=== PATIENT | male | born 1950 | race Caucasian/White ===

== ENCOUNTER 2020-03-03 22:42 | Emergency (ER) | payer MEDICARE, BC ==
[~2020-03-03] VITALS: Ht 175.3 cm; Wt 149.7 kg
[~2020-03-03 22:42] MED LIST: ALPR0.5T72 PO; ASP81TEC PO; BUPR-45 PO; CLOP75TA PO; DIGO250T PO; EZET10TA5 PO; FENO145T2 PO; LISI1TAB10 PO; METO-333 PO; NF-ESOM40C PO; PHEN200T27 PO; RNT150T PO
[2020-03-03 22:56] VITALS: BP 151/85
--- NOTE | 2020-03-03 23:17 | ED Upper Extremity ---
General Chief Complaint: Upper Extremity Stated Complaint: FELL,HIT HEAD,HEAD LAC Nursing Triage Note: PT AMBULATE TO ROOM FS01 WITH C/O RIGHT SHOULDER PAIN AND INJURY TO HEAD AFTER FALLING DOWN APPROX 6 STEPS. PT DENIES BACK OR NECK PAIN. PT REPORTS HE WAS CARRYING A POT OF CHILI DOWN THE STAIRS AND TRIPPED AND FELL. PT DENIES LOC. PT HAS DRIED BLOOD TO THE TOP OF HEAD. Nursing Sepsis Screen: No Definite Risk History of Present Illness Date Seen by Provider: Mar 03, 2020 Time Seen by Provider: 23:13 Initial Comments 70-year-old male presents with injury to the right shoulder and head following a fall. Patient reports he was carrying some chili down the stairs when he believes his right leg gave out on him and he fell. Patient has a large hematoma and abrasion on his scalp. He complains of significant pain to his right shoulder with pain with extension of the right arm or abduction of the right arm. The pain is located in the top of the right shoulder, there is no obvious deformity. Agent reports she is on aspirin but otherwise no other blood thinners as far as his head injury goes. He denies any loss of consciousness. Allergies and Home Medications Allergies Coded Allergies: Penicillins (Unverified Allergy, rash, 11/10/11) Qvrhlph-Tew-Wea Reductase Inhibitor (Unverified Allergy, LEG CRAMPS, 11/10/11) fish oil (Unverified Allergy, PVC'S, 11/10/11) Home Medications Alprazolam 0.5 Mg Tab.rapdis, 1 EACH PO NEEDED, (Reported) ANEXIETY Aspirin 81 Mg Tabec, 81 MG PO DAILY, (Reported) MAY RESUME ASPIRIN ON sunday IF NO BLEEDING Bupropion Hcl 150 Mg Tablet.sa, 150 MG PO DAILY, (Reported) Clopidogrel Bisulfate 75 Mg Tablet, 1 EACH PO DAILY, (Reported) MAY RESUME PLAVIX ON SUNDAY IF NO BLEEDING Digoxin 250 Mcg Tablet, 1 EACH PO DAILY, (Reported) Esomeprazole Mag Trihydrate 40 Mg Capsule.dr, 1 CAP PO DAILY, (Reported) Ezetimibe 10 Mg Tablet, 1 TAB PO DAILY, (Reported) Fenofibrate,Micronized 145 Mg Tablet, 1 EACH PO DAILY, (Reported) Hctz/Lisinopril 1 Tab Tablet, 1 EACH PO DAILY, (Reported) Metoprolol Tartrate 25 Mg Tablet, 1 EACH PO BID, (Reported) Phenazopyridine Hcl 200 Mg Tablet, 1 EACH PO TID, (Reported) MAY TAKE ONE TAB BY MOUTH UP TO THREE TIMES A DAY NEEDED FOR PAIN/SPASMS Ranitidine Hcl 150 Mg Tablet, 1 TAB PO DAILY, (Reported) Patient Home Medication List Home Medication List Reviewed: Yes Review of Systems Constitutional: no symptoms reported EENTM: see HPI Respiratory: No cough, No short of breath Cardiovascular: No chest pain, No palpitations Gastrointestinal: No diarrhea, No nausea, No vomiting Genitourinary: no symptoms reported Musculoskeletal: see HPI Skin: see HPI Psychiatric/Neurological: No Symptoms Reported Past Fhyqakt-Vukgis-Nuiuws Hx Past Med/Social Hx: Reviewed Nursing Past Med/Soc Hx Patient Social History Alcohol Use: Regular Use Recreational Drug Use: No Smoking Status: Never a Smoker 2nd Hand Smoke Exposure: No Recent Foreign Travel: No Contact w/Someone Who Travel: No Recent Infectious Disease Expo: No Recent Hopitalizations: No Physical Abuse: No Sexual Abuse: No Mistreated: No Fear: No Seasonal Allergies Seasonal Allergies: Yes Past Medical History Surgeries: Yes (SPLENECTOMY, KIDNEY ABLATION, ) Adenoidectomy, Gallbladder, Tonsillectomy Respiratory: No Cardiac: Yes (PACEMAKER/DEFIB, STENTS) Hypertension Neurological: No Reproductive Disorders: No Genitourinary: Yes (KIDNEY CANCER) Gastrointestinal: Yes (SPLENECTOMY) Gall Bladder Disease Musculoskeletal: Yes Chronic Back Pain Endocrine: No HEENT: No Cancer: Yes Kidney Did You Recieve Any Treatments: Yes What Type of Treatment Did You: Surgical Intervention Psychosocial: Yes Anxiety Integumentary: No Blood Disorders: No Physical Exam Vital Signs Vital Signs - First Documented 03/03/20 22:56 Temp 36.4 Pulse 95 Resp 17 B/P (MAP) 151/85 (107) O2 Delivery Room Air Capillary Refill : Less Than 3 Seconds Height, Weight, BMI Height: '" Weight: lbs. oz. kg; 48.00 BMI Method: General Appearance: WD/WN, no apparent distress, obese HEENT: PERRL/EOMI Neck: full range of motion Cardiovascular: normal peripheral pulses, regular rate, rhythm Respiratory: normal breath sounds Gastrointestinal: non tender, soft Back: no CVA tenderness, no vertebral tenderness Shoulder: No deformity; limited ROM (patient has pain with extension of her right arm, abduction a right arm, there is no obvious deformity. 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 Chart review shows patient is on Plavix, however he states that is old and is only on aspirin.. Patient however declined states he doesn't think he is anything going on that requires CT. Patient does have normal neurologic exam at this time patient was encouraged to return the ER if any neurologic symptoms or intractable nausea, vomiting or other concerns following his head injury. Diagnostic Imaging Diagonstic Imaging: Xray Plain Films/CT/US/NM/MRI: other (shoulder) Comments No acute findings Reviewed: Reviewed by Me Departure Impression Primary Impression: Injury of right shoulder Qualified Codes: S49.91XA - Unspecified injury of right shoulder and upper arm, initial encounter Disposition: 01 HOME, SELF-CARE Condition: Stable Departure-Patient Inst. Referrals: LUIS EDUARDO VASQUEZ MD (PCP) Primary Care Physician Patient Instructions: Shoulder Pain ED, Rotator Cuff Injury (DC) Add. Discharge Instructions: Tylenol or ibuprofen as needed Ice to affected area as needed Follow-up with primary care provider or orthopedic surgeon if symptoms are not improving for further evaluation and possible MRI if warranted All discharge instructions reviewed with patient and/or family. Voiced understanding. SUSI CHOW DO Mar 03, 2020 23:17
--- NOTE | 2020-03-04 07:33 | Diagnostic Imaging Report ---
INDICATION: Right shoulder injury from a fall Two views of the right shoulder show slight separation of the acromioclavicular joint and measures 6.7 mm. There is a small bone fragment superior to the AC joint that may be an avulsed osteophyte. Glenohumeral joint is normal. IMPRESSION: Right AC joint separation with probable avulsed bone spur of indeterminate age. Dictated by: Dictated on workstation # [id number]
== END 2020-03-03 23:47 | disposition home or self-care (01) ==
LOC: EDUNIT# 22:42 → ER FS 22:45
DX: S00.03XA Contusion of scalp, initial encounter (principal); S49.91XA Unspecified injury of right shoulder and upper arm, initial encounter; E66.9 Obesity, unspecified; I10 Essential (primary) hypertension; F41.9 Anxiety disorder, unspecified; Z68.42 Body mass index [BMI] 45.0-49.9, adult; Z85.528 Personal history of other malignant neoplasm of kidney; Z95.5 Presence of coronary angioplasty implant and graft; Z95.810 Presence of automatic (implantable) cardiac defibrillator; Z88.0 Allergy status to penicillin; Z88.8 Allergy status to other drugs, medicaments and biological substances; Z79.82 Long term (current) use of aspirin; W18.39XA Other fall on same level, initial encounter
CPT/HCPCS: 73030

== ENCOUNTER 2020-10-10 16:51 | Emergency (ER) | payer MEDICARE, BC ==
[~2020-10-10] VITALS: Ht 175.2 cm; Wt 149.7 kg
[2020-10-10] MEDS ORDERED: KETOROLAC 30 MG/ML VIAL IVP STA (17:06)
[2020-10-10] MEDS ORDERED: NS IV 500 ML 500 ML IV STA (17:06)
--- NOTE | 2020-10-10 17:06 | ED Chest Pain ---
General Chief Complaint: Chest Pain Stated Complaint: CHEST PAIN Source: patient History of Present Illness Date Seen by Provider: Oct 10, 2020 Time Seen by Provider: 16:52 Initial Comments 70-year-old male presenting with complaints of chest discomfort and pain into his left arm. He was also feeling dizzy at times. He states this feels somewhat similar to when he had to have stents placed in the past. He did take nitroglycerin x2 and this helps with his symptoms. He denies doing anything when this discomfort came on. He states that this all started around 3:30 PM today. On arrival in the emergency department he denies having any discomfort currently. He has had no nausea or vomiting. He denies any cough or shortness of breath. He follows with Dr. Zacarias for Cardiology from [facility]. Timing/Duration: gone now Severity/Quality: moderate Location: central Radiation: arms (left arm) Activities at Onset: none ASA po PERSONAL PROPERTY APPRAISER: No NTG SL PERSONAL PROPERTY APPRAISER: Yes (x2) Associated Symptoms: No abdominal pain, No back pain, No diaphoresis; dizziness, fatigue; No fever/chills, No headache, No heartburn, No nausea/vomiting, No rash, No shortness of breath, No swelling/lump in chest, No syncope, No weakness Allergies and Home Medications Allergies Coded Allergies: Penicillins (Unverified Allergy, rash, 11/10/11) Azgcjlk-Mwd-Jer Reductase Inhibitor (Unverified Allergy, LEG CRAMPS, 11/10/11) fish oil (Unverified Allergy, PVC'S, 11/10/11) Home Medications Alprazolam 0.5 Mg Tab.rapdis, 1 EACH PO NEEDED, (Reported) ANEXIETY Aspirin 81 Mg Tabec, 81 MG PO DAILY, (Reported) MAY RESUME ASPIRIN ON sunday IF NO BLEEDING Bupropion Hcl 150 Mg Tablet.sa, 150 MG PO DAILY, (Reported) Clopidogrel Bisulfate 75 Mg Tablet, 1 EACH PO DAILY, (Reported) MAY RESUME PLAVIX ON SUNDAY IF NO BLEEDING Digoxin 250 Mcg Tablet, 1 EACH PO DAILY, (Reported) Esomeprazole Mag Trihydrate 40 Mg Capsule.dr, 1 CAP PO DAILY, (Reported) Ezetimibe 10 Mg Tablet, 1 TAB PO DAILY, (Reported) Fenofibrate,Micronized 145 Mg Tablet, 1 EACH PO DAILY, (Reported) Hctz/Lisinopril 1 Tab Tablet, 1 EACH PO DAILY, (Reported) Metoprolol Tartrate 25 Mg Tablet, 1 EACH PO BID, (Reported) Phenazopyridine Hcl 200 Mg Tablet, 1 EACH PO TID, (Reported) MAY TAKE ONE TAB BY MOUTH UP TO THREE TIMES A DAY NEEDED FOR PAIN/SPASMS Ranitidine Hcl 150 Mg Tablet, 1 TAB PO DAILY, (Reported) Patient Home Medication List Home Medication List Reviewed: Yes Review of Systems Review of Systems Constitutional: No chills, No fever EENTM: No Symptoms Reported Respiratory: No Symptoms Reported Cardiovascular: See HPI Gastrointestinal: No Symptoms Reported Genitourinary: No Symptoms Reported Musculoskeletal: no symptoms reported Skin: no symptoms reported Psychiatric/Neurological: Denies Numbness, Denies Paresthesia Past Gldxpmq-Gybotn-Rrqpof Hx Seasonal Allergies Seasonal Allergies: Yes Past Medical History Surgeries: Yes (SPLENECTOMY, KIDNEY ABLATION, ) Adenoidectomy, Gallbladder, Tonsillectomy Respiratory: No Cardiac: Yes (PACEMAKER/DEFIB, STENTS) Hypertension Neurological: No Reproductive Disorders: No Genitourinary: Yes (KIDNEY CANCER) Gastrointestinal: Yes (SPLENECTOMY) Gall Bladder Disease Musculoskeletal: Yes Chronic Back Pain Endocrine: No HEENT: No Cancer: Yes Kidney Did You Recieve Any Treatments: Yes What Type of Treatment Did You: Surgical Intervention Psychosocial: Yes Anxiety Integumentary: No Blood Disorders: No Physical Exam Vital Signs Vital Signs - First Documented 10/10/20 16:51 Temp 36.1 Pulse 99 Resp 16 B/P (MAP) 161/84 (109) Pulse Ox 98 O2 Delivery Room Air Capillary Refill : Height, Weight, BMI Height: '" Weight: lbs. oz. kg; 48.00 BMI Method: General Appearance: No Apparent Distress, Obese Neck: Supple Respiratory: Chest Non Tender, Lungs Clear, Normal Breath Sounds, No Accessory Muscle Use, No Respiratory Distress Cardiovascular: Regular Rate, Rhythm, Normal Peripheral Pulses Gastrointestinal: Normal Bowel Sounds, No Pulsatile Mass, Non Tender, Soft Rectal: Deferred Extremity: Normal Capillary Refill, Normal Inspection, Pedal Edema (trace to 1+ BLE) Neurologic/Psychiatric: Alert, Oriented x3 Skin: Normal Color, Warm/Dry Progress/Results/Core Measures Results/Orders Lab Results Laboratory Tests Test 10/10/20 16:54 10/10/20 18:30 Range/Units White Blood Count 15.6 H 4.3-11.0 10^3/uL Red Blood Count 4.21 L 4.35-5.85 10^6/uL Hemoglobin 12.5 L 13.3-17.7 G/DL Hematocrit 38 L 40-54 % Mean Corpuscular Volume 90 80-99 FL Mean Corpuscular Hemoglobin 30 25-34 PG Mean Corpuscular Hemoglobin Concent 33 32-36 G/DL Red Cell Distribution Width 17.3 H 10.0-14.5 % Platelet Count 328 130-400 10^3/uL Mean Platelet Volume 11.3 H 7.4-10.4 FL Immature Granulocyte % (Auto) 0 % Neutrophils (%) (Auto) 47 42-75 % Lymphocytes (%) (Auto) 40 12-44 % Monocytes (%) (Auto) 11 0-12 % Eosinophils (%) (Auto) 2 0-10 % Basophils (%) (Auto) 1 0-10 % Neutrophils # (Auto) 7.3 1.8-7.8 X 10^3 Lymphocytes # (Auto) 6.3 H 1.0-4.0 X 10^3 Monocytes # (Auto) 1.6 H 0.0-1.0 X 10^3 Eosinophils # (Auto) 0.2 0.0-0.3 10^3/uL Basophils # (Auto) 0.1 0.0-0.1 10^3/uL Immature Granulocyte # (Auto) 0.1 0.0-0.1 10^3/uL Neutrophils % (Manual) 47 % Lymphocytes % (Manual) 45 % Monocytes % (Manual) 6 % Eosinophils % (Manual) 2 % Target Cells MODERATE Elliptocytes SLIGHT Prothrombin Time 14.2 12.2-14.7 SEC INR Comment 1.1 0.8-1.4 Activated Partial Thromboplast Time 38 H 24-35 SEC Sodium Level 140 135-145 MMOL/L Potassium Level 4.0 3.6-5.0 MMOL/L Chloride Level 104 98-107 MMOL/L Carbon Dioxide Level 20 L 21-32 MMOL/L Anion Gap 16 H 5-14 MMOL/L Blood Urea Nitrogen 50 H 7-18 MG/DL Creatinine 1.93 H 0.60-1.30 MG/DL Estimat Glomerular Filtration Rate 35 BUN/Creatinine Ratio 26 Glucose Level 101 70-105 MG/DL Calcium Level 9.2 8.5-10.1 MG/DL Corrected Calcium 9.4 8.5-10.1 MG/DL Magnesium Level 1.8 1.6-2.4 MG/DL Total Bilirubin 0.4 0.1-1.0 MG/DL Aspartate Amino Transf (AST/SGOT) 23 5-34 U/L Alanine Aminotransferase (ALT/SGPT) 12 0-55 U/L Alkaline Phosphatase 60 40-136 U/L Troponin I < 0.30 0.32 *H <0.30 NG/ML Pro-B-Type Natriuretic Peptide 2523.0 H <75.0 PG/ML Total Protein 7.7 6.4-8.2 GM/DL Albumin 3.7 3.2-4.5 GM/DL My Orders Orders - TONA DURAND MD Ekg Tracing (10/10/20 16:53) Cbc With Automated Diff (10/10/20 17:03) Magnesium (10/10/20 17:03) Chest 1 View Ap/Pa Only (10/10/20 17:03) Comprehensive Metabolic Panel (10/10/20 17:03) Protime With Inr (10/10/20 17:03) Partial Thromboplastin Time (10/10/20 17:03) O2 (10/10/20 17:03) Monitor-Rhythm Ecg Trace Only (10/10/20 17:03) Aspirin Chewable Tablet (Baby Aspirin Ch (10/10/20 17:15) Ed Iv/Invasive Line Start (10/10/20 17:03) Troponin I Fs (10/10/20 17:03) Probnp Fs (10/10/20 17:03) Ns Iv 500 Ml (Sodium Chloride 0.9%) (10/10/20 17:06) Ketorolac Injection (Toradol Injection) (10/10/20 17:06) Manual Differential (10/10/20 16:54) Pantoprazole Injection (Protonix Injecti (10/10/20 17:14) Troponin I Fs (10/10/20 18:40) Medications Given in ED Current Medications Medications Dose Ordered Sig/Mart Route Start Time Stop Time Status Last Admin Dose Admin Aspirin 324 mg ONCE ONCE PO 10/10/20 17:15 10/10/20 17:16 DC 10/10/20 17:08 324 MG Vital Signs/I&O 10/10/20 10/10/20 10/10/20 16:51 16:51 19:00 Temp 36.1 36.1 Pulse 99 88 Resp 16 14 B/P (MAP) 161/84 (109) 139/78 (109) Pulse Ox 98 97 O2 Delivery Room Air Room Air Room Air Progress Progress Note #1: Progress Note Check basic labs as well as electrocardiogram and chest x-ray. The initial electrocardiogram showed a paced rhythm with a heart rate around 105. He had no acute ST elevation. As he had not taken aspirin yet we will give 324 mg of aspirin. For his chest tightness will try 500 normal saline and Toradol. Progress Note #2: Progress Note Reviewed with patient that there is initial labs and tests all appeared stable without indications for an acute AR. Will need to get a repeat troponin to ensure is not going up. Patient was agreeable with the plan. Also reviewed the the cardiology nurse practitioner had recently decreased his metoprolol from 50 mg twice a day to a single extended release 25 mg pill. He has noticed his heart rate has been higher as well as his blood pressure. Advised patient that he could take 2 of the 25 mg extended release pills and check back with the senior laboratory technician. If he has worsening symptoms then they may need to see him sooner. If his repeat troponin was still negative then we will try to discharge home. Progress Note #3: Progress Note Repeat troponin came back at 0.32, just above the cut off of <0.3. Since he had no further pain, dizziness, felt better overall, and has chronic renal failure that would contribute to elevation of the troponin as well, will discharge to [facility] with strict return precautions reviewed with patient in room. Patient continues to have no further symptoms. Counseled on follow-up and return precautions advised to certainly call cardiology about close follow-up. He states he has an appointment October 25. We will have him increase to the 50 mg of metoprolol. Return or be seen sooner if worsening symptoms Initial ECG Impression Date: Oct 10, 2020 Initial ECG Impression Time: 16:54 Initial ECG Rate: 105 Initial ECG Comparisson: No Previous ECG Available Comment Atrial sensed ventricular paced complexes with a heart rate of 105 bpm. MD interval 120 ms. Left axis deviation. QT interval 346 ms with a QTc interval of 458 ms. There is no acute ST elevation. There is no prior tracing available for comparison. Diagnostic Imaging Diagonstic Imaging: Xray Plain Films/CT/US/NM/MRI: chest Comments [facility] [place] [place] NAME: VALENTINO PRESTON [facility] REC#: [id number] PT STATUS: REG ER : 1950 PHYSICIAN: TONA DURAND MD ADMIT DATE: 10/10/20/ER FS Draft Date of Exam:10/10/20 CHEST 1 VIEW AP/PA ONLY INDICATION: Chest pain, dizzy. TECHNIQUE: Single view chest 5:00 p.m. CORRELATION STUDY: None. FINDINGS: Right-sided AICD present. Heart size is enlarged. Mediastinum is within normal limits with mild calcification of the aortic arch. Vasculature within normal limits. The lungs are clear with no consolidating infiltrate. There is no significant effusion or pneumothorax. Multiple surgical clips project just below the apex of the left diaphragm. IMPRESSION: Cardiac enlargement without failure. Dictated on workstation # [id number] Dict: 10/10/20 1719 Trans: 10/10/20 1730 [facility] [id number] Interpreted by: JATIN LUIS DO Electronically signed by: Reviewed: Reviewed by Me Departure Impression Primary Impression: Chest pressure Additional Impression: Dizziness Disposition: 01 HOME, SELF-CARE Condition: Stable Departure-Patient Inst. Decision time for Depature: 18:55 Referrals: SELFSTEWART MD (PCP/Family) Primary Care Physician Patient Instructions: Dizziness, Adult ED, Chest Pain, Adult ED Add. Discharge Instructions: You could increase your Extended release Metoprolol from 25 mg in the evening to 50 mg in the evening. Check with Cardiology for further concerns Return or seek medical care for worsening symptoms All discharge instructions reviewed with patient and/or family. Voiced understanding. TONA DURAND MD Oct 10, 2020 17:06
[2020-10-10 17:07] LABS: BASOPHILS # (AUTO) 0.1 10^3/uL (0.0-0.1); BASOPHILS % (AUTO) 1 % (0-10); EOSINOPHILS # (AUTO) 0.2 10^3/uL (0.0-0.3); EOSINOPHILS % (AUTO) 2 % (0-10); HEMATOCRIT 38 % (40-54); HEMOGLOBIN 12.5 G/DL (13.3-17.7); LYMPHOCYTES # (AUTO) 6.3 X 10^3 (1.0-4.0); LYMPHOCYTES % (AUTO) 40 % (12-44); MEAN CORPUSCULAR HEMOGLOBIN 30 PG (25-34); MEAN CORPUSCULAR HGB CONC 33 G/DL (32-36); MEAN CORPUSCULAR VOLUME 90 FL (80-99); MEAN PLATELET VOLUME 11.3 FL (7.4-10.4); MONOCYTES # (AUTO) 1.6 X 10^3 (0.0-1.0); MONOCYTES % (AUTO) 11 % (0-12); NEUTROPHILS # (AUTO) 7.3 X 10^3 (1.8-7.8); NEUTROPHILS % (AUTO) 47 % (42-75); PLATELET COUNT 328 10^3/uL (130-400); WHITE BLOOD COUNT 15.6 10^3/uL (4.3-11.0)
[2020-10-10] MEDS ORDERED: PANTOPRAZOLE 40 MG (PROTONIX) VIAL IV STA (17:14)
[2020-10-10] MEDS ORDERED: ASPIRIN 81 MG CHEW (CHILDREN'S ASA) PO ONE (17:15)
[2020-10-10 17:24] LABS: INR 1.1 (0.8-1.4); PROTHROMBIN TIME PATIENT 14.2 SEC (12.2-14.7)
[2020-10-10 17:25] LABS: ALBUMIN 3.7 GM/DL (3.2-4.5); BILIRUBIN,TOTAL 0.4 MG/DL (0.1-1.0); CALCIUM 9.2 MG/DL (8.5-10.1); CREATININE SERUM 1.93 MG/DL (0.60-1.30); MAGNESIUM 1.8 MG/DL (1.6-2.4); TOTAL PROTEIN 7.7 GM/DL (6.4-8.2)
--- NOTE | 2020-10-10 17:31 | Diagnostic Imaging Report ---
INDICATION: Chest pain, dizzy. TECHNIQUE: Single view chest 5:00 p.m. CORRELATION STUDY: None. FINDINGS: Right-sided AICD present. Heart size is enlarged. Mediastinum is within normal limits with mild calcification of the aortic arch. Vasculature within normal limits. The lungs are clear with no consolidating infiltrate. There is no significant effusion or pneumothorax. Multiple surgical clips project just below the apex of the left diaphragm. IMPRESSION: Cardiac enlargement without failure. Dictated by: Dictated on workstation # [id number]
[2020-10-10 17:34] LABS: ELLIPT/OVALOCYTES SLIGHT; EOSINOPHILS % (MANUAL) 2 %; LYMPHOCYTES % (MANUAL) 45 %; MONOCYTES % (MANUAL) 6 %; NEUTROPHILS % (MANUAL) 47 %; TARGET CELLS MODERATE
[2020-10-10 19:00] VITALS: BP 139/78
--- OUTSIDE RECORDS SUMMARY | 2020-10-13 23:00 | XMS REPORT | Encounter Summary ---
Author Author [facility] Organization [facility] Address Unknown Phone Unavailable Care Team Providers Care [employer] Center Director Name Role Phone Self, Harpal SPENCER PCP Reason for Referral * MRI/CAT/PET Scan (Routine) Referred By Contact Referred To Contact Status Reason Specialty Diagnoses / Procedures Shaw Villanueva MD [address] [address] [facility] Mri [address] [place] [address] Closed Radiology Diagnoses Back pain P rocedures MRI Lumbar Spine wo contrast Electronically signed by Shaw Villanueva MD at Encounter Details Care Team Description Date Type Department Shaw Villanueva MD [address] [address] Back pain (Primary Dx) 08/31/2020 Transcribe [facility] [address] [place], [place] [id number] Social History Date Tobacco Use Types Packs/Day Years Used Never Assessed Sex Assigned at Date Recorded Not on file documented as of this encounter Plan of Treatment Not on filedocumented as of this encounter Results * MRI Lumbar Spine wo contrast (10/08/2020 9:25 AM CDT) Specimen Impressions Performed At Multilevel degenerative lumbar spondylosis. High-grad e spinal canal [place] stenosis, most notable at L3-L4. L3-L4: Disc bulge. Moderate to severe f acet hypertrophy. Severe spinal canal stenosis. Severe bilateral latera l recess narrowing. Moderate to severe bilateral neural foraminal narro wing. L4-L5: Disc bulge. Moderate to severe f acet hypertrophy. Ligamentum flavum thickening. Moderate to severe s luke canal stenosis. Only a small amount of CSF surrounds the cauda equina nerve roots. Moderate to severe bilateral neural foraminal narro wing. Moderate to severe bilateral lateral re cess narrowing. L5-S1: Disc bulge. Moderate facet hyper trophy. No significant spinal canal stenosis. Moderate to severe left and mild right neural foraminal narrowing.. READING SITE: [facility]. ATTESTATION STATEMENT: The Staff Radiol ogist has personally reviewed the images and dictated, reviewed, or edite d the final report. Narrative Performed At Patient: RELL SEGAL Sex#: M #: 1950 Paulette #: [id number] Location: [facility] MRI 6997 Ordering Provider: SHAW VILLANUEVA Procedure Requested: [id number] MRI LUMB AR SPINE WO CONTRAST Exam Ordered: 10/08/2020 08 05 Exam Date/Time: 10/08/2020 092 5 Begin exam date/time: 10/08/2020 084 8 MRI LUMBAR SPINE WO CONTRAST Date: 10/08/2020 9:26 AM Indication: Back pain Comparison: None. Technique: Multi-planar multi-weighted magnetic resonance imaging of the lumbar spine was performed without intr avenous contrast using the standard lumbar spine protocol. FINDINGS: The lumbar spine is normally aligned. N o acute fracture. Moderate multilevel degenerative disc desiccatio n and disc height loss. No marrow replacement process. Scattered endplate edema throughout the lumbar spine. The conus terminates at a normal level. No abnormal signal is seen within the visualized distal spinal cor d. No clumping of intrathecal nerve roots. Redundancy of the cauda eq uina nerve roots secondary to chronic high-grade spinal canal stenosi s. Incompletely evaluated high T2 signal i n both kidneys. Suggestion of bladder dilation, incompletely evaluate d T12-L1: No disc bulge. No facet arthrop athy. No significant spinal stenosis or neural foraminal narrowing. L1-L2: Disc bulge. Mild facet arthropat hy. No significant spinal stenosis or neural foraminal narrowing. L2-L3: Disc bulge. Moderate facet hyper trophy. Mild spinal canal stenosis. Mild right lateral recess rajesh rowing. Mild right neural foraminal narrowing. L3-L4: Disc bulge. Moderate to severe f acet hypertrophy. Severe spinal canal stenosis. Severe bilateral latera l recess narrowing. Moderate to severe bilateral neural foraminal narro wing. L4-L5: Disc bulge. Moderate to severe f acet hypertrophy. Ligamentum flavum thickening. Moderate to severe s luke canal stenosis. Only a small amount of CSF surrounds the cauda equina nerve roots. Moderate to severe bilateral neural foraminal narro wing. Moderate to severe bilateral lateral re cess narrowing. L5-S1: Disc bulge. Moderate facet hyper trophy. No significant spinal canal stenosis. Moderate to severe left and mild right neural foraminal narrowing.. Procedure Note Interface, Rad Results In - 10/11/2020 3:02 PM CDT Patient: RELL SEGAL Sex#: M #: 1950 Paulette#: [id number] Location: [facility] MRI Ordering Provider: SHAW VILLANUEVA Procedure Requested: [id number] MRI LUMBAR SPINE WO CONTRAST Exam Ordered: 10/08/2020 0805 Exam Date/Time: 10/08/2020 0925 Begin exam date/time: 10/08/2020 0848 MRI LUMBAR SPINE WO CONTRAST Date: 10/08/2020 9:26 AM Indication: Back pain Comparison: None. Technique: Multi-planar multi-weighted magnetic resonance imaging of the lumbar spine was performed without intravenous contrast using the standard lumbar spine protocol. FINDINGS: The lumbar spine is normally aligned. No acute fracture. Moderate multilevel degenerative disc desiccation and disc height loss. No marrow replacement process. Scattered endplate edema throughout the lumbar spine. The conus terminates at a normal level. No abnormal signal is seen within the visualized distal spinal cord. No clumping of intrathecal nerve roots. Redundancy of the cauda equina nerve roots secondary to chronic high-grade spinal canal stenosis. Incompletely evaluated high T2 signal in both kidneys. Suggestion of bladder dilation, incompletely evaluated T12-L1: No disc bulge. No facet arthropathy. No significant spinal stenosis or neural foraminal narrowing. L1-L2: Disc bulge. Mild facet arthropathy. No significant spinal stenosis or neural foraminal narrowing. L2-L3: Disc bulge. Moderate facet hypertrophy. Mild spinal canal stenosis. Mild right lateral recess narrowing. Mild right neural foraminal narrowing. L3-L4: Disc bulge. Moderate to severe facet hypertrophy. Severe spinal canal stenosis. Severe bilateral lateral recess narrowing. Moderate to severe bilateral neural foraminal narrowing. L4-L5: Disc bulge. Moderate to severe facet hypertrophy. Ligamentum flavum thickening. Moderate to severe spinal canal stenosis. Only a small amount of CSF surrounds the cauda equina nerve roots. Moderate to severe bilateral neural foraminal narrowing. Moderate to severe bilateral lateral recess narrowing. L5-S1: Disc bulge. Moderate facet hypertrophy. No significant spinal canal stenosis. Moderate to severe left and mild right neural foraminal narrowing.. IMPRESSION Multilevel degenerative lumbar spondylosis. High-grade spinal canal stenosis, most notable at L3-L4. L3-L4: Disc bulge. Moderate to severe facet hypertrophy. Severe spinal canal stenosis. Severe bilateral lateral recess narrowing. Moderate to severe bilateral neural foraminal narrowing. L4-L5: Disc bulge. Moderate to severe facet hypertrophy. Ligamentum flavum thickening. Moderate to severe spinal canal stenosis. Only a small amount of CSF surrounds the cauda equina nerve roots. Moderate to severe bilateral neural foraminal narrowing. Moderate to severe bilateral lateral recess narrowing. L5-S1: Disc bulge. Moderate facet hypertrophy. No significant spinal canal stenosis. Moderate to severe left and mild right neural foraminal narrowing.. READING SITE: [facility]. ATTESTATION STATEMENT: The Staff Radiologist has personally reviewed the images and dictated, reviewed, or edited the final report. Performing Organization Address City/State/ZIP Code P jose Number [place] documented in this encounter Visit Diagnoses Diagnosis Back pain - Primary Unspecified backache documented in this encounter
--- OUTSIDE RECORDS SUMMARY | 2020-10-13 23:00 | XMS REPORT | Encounter Summary ---
Author Author [facility] Organization [facility] Address Unknown Phone Unavailable Care Team Providers Care Business Systems Lead Name Role Phone Chidi, Harpal SPENCER PCP Reason for Visit * MRI/CAT/PET Scan (Routine) Referred By Contact Referred To Contact Status Reason Specialty Diagnoses / Procedures Shaw Villanueva MD [address] [address] [facility] Mri [address] [place] [address] Closed Radiology Diagnoses Back pain P rocedures MRI Lumbar Spine wo contrast Encounter Details Care Team Description Date Type Department Shaw Villanueva MD [address] [address] Back pain 10/08/2020 Imaging Medical [facility], [address] [place] [address] Social History Date Tobacco Use Types Packs/Day Years Used Never Assessed Sex Assigned at Date Recorded Not on file documented as of this encounter Plan of Treatment Not on filedocumented as of this encounter Procedures Comments Procedure Name Priority Date/Time Associated Diag nosis MRI LUMBAR SPINE WO Routine 10/08/2020 Back pain CONTRAST 9:25 AM CDT documented in this encounter Results * MRI Lumbar Spine [...] mild right neural foraminal narrowing.. READING SITE: [facility]. ATTESTATION STATEMENT: The Staff Radiol ogist has personally reviewed the images and dictated, reviewed, or edite d the final report. Narrative Performed At Patient: RELL SEGAL Sex#: M #: 1950 Paulette #: [id number] Location: [facility] MRI 6997 Ordering Provider: SHAW VILLANUEVA Procedure Requested: [id number] MRI LUMB AR SPINE WO CONTRAST Exam [...] RELL SEGAL Sex#: M #: 1950 Paulette#: [id number] Location: [facility] MRI Ordering Provider: SAHW VILLANUEVA Procedure Requested: [id number] MRI LUMBAR SPINE WO CONTRAST Exam Ordered: [...] mild right neural foraminal narrowing.. READING SITE: [facility]. ATTESTATION STATEMENT: The Staff Radiologist has personally reviewed the images and dictated, reviewed, or edited the final report. Performing Organization Address City/State/ZIP Code P jose [place] NO documented in this encounter Visit Diagnoses Diagnosis Back pain Unspecified backache documented in this encounter
--- OUTSIDE RECORDS SUMMARY | 2020-10-13 23:00 | XMS REPORT | Clinical Summary ---
Author Author [facility] Organization [facility] Address Unknown Phone Unavailable Care Team Providers Care Traveling Sales Representative Name Role Phone Chidi, Harpal SPENCER PCP Allergies Not on File Medications Not on file Active Problems Not on file Encounters Care Team Description Date Type Specialty Shaw Villanueva MD Back pain 10/08/2020 Imaging Radiology Appointment Shaw Villanueva MD Back pain (Primary Dx) 08/31/2020 Transcribe Radiology Orders from Last 3 Months Social History Date Tobacco Use Types Packs/Day Years Used Never Assessed Sex Assigned at Date Recorded Not on file Last Filed Vital Signs Not on file Plan of Treatment Health Maintenance Due Date Last Done Comments Advance Directive has 1950 been filed Hepatitis C Screen 1950 Medicare Annual Wellness 1950 Td/Tdap# 1950 Colorectal Screening via 01/01/2002 Colonoscopy Zoster Vaccine# (1 of 2) 01/01/2002 Advance Directive 01/01/2017 Conversation Depression Screening 01/01/2017 PHQ-9 # Fall Risk Assessment # 01/01/2017 Patient Needs Advance 01/01/2017 Directive Pneumococcal Vaccine: 65+ 01/01/2018 01/01/2017, Years (4 of 4 - PPSV23) 02/11/2014, 12/04/2008, Additional history exists Influenza Vaccine (#1) 2020 12/30/2018, 12/30/2018, 12/10/2018, Additional history exists COVID-19 Vaccine Completed 06/01/2020, 05/04/2020 Implants Device Identifier Shelf Expiration Date Model / Serial / L ot Implanted Type Area Manufactur er [id number] / [id number] / Medtronic Claria Mri Quad ICD MEDTRONIC Project Production Engineer-05/01/2017 Implanted: 05/01/2017 by Vic Hollingsworth MD (Quantity not on file) [id number] / [id number] / Medtronic Lead [id number]/20/2018 Lead MEDTR ONIC Implanted: 05/01/2017 by Vic Hollingsworth MD (Quantity not on file) [id number] / [id number] / Medtronic Lead 5076-52-05/01/2017 Lead MEDTR ONIC Implanted: 05/01/2017 by Vic Hollingsworth MD (Quantity not on file) [id number] / [id number] / Medtronic Lead 4298-88-05/01/2017 Lead MEDTR ONIC Implanted: 05/01/2017 by Vic Hollingsworth MD (Quantity not on file) [id number] / / [id number] Cordis Cypher Rx Luis Miguel Stent [id number] / / [id number] Cordis Cypher Rx Luis Miguel Stent Procedures Comments Procedure Name Priority Date/Time Associated Diag nosis MRI LUMBAR SPINE WO Routine 10/08/2020 Back pain CONTRAST 9:25 AM CDT from Last 3 Months Results * MRI Lumbar Spine wo contrast [...] mild right neural foraminal narrowing.. READING SITE: [facility]. ATTESTATION STATEMENT: The Staff Radiol ogist has personally reviewed the images and dictated, reviewed, or edite d the final report. Narrative Performed At Patient: RELL SEGAL Sex#: M #: 1950 Paulette #: [id number] Location: [facility] MRI 6997 Ordering Provider: SHAW VILLANUEVA Procedure Requested: [id number] MRI LUMB AR SPINE WO CONTRAST Exam [...] RELL SEGAL Sex#: M #: 1950 Paulette#: [id number] Location: [facility] MRI Ordering Provider: SHAW VILLANUEVA Procedure Requested: [id number] MRI LUMBAR SPINE WO CONTRAST Exam Ordered: 10/08/2020 0805 Exam Date/Time: 10/08/2020 09 Begin exam date/time: 10/08/2020 0848 MRI LUMBAR [...] mild right neural foraminal narrowing.. READING SITE: [facility]. ATTESTATION STATEMENT: The Staff Radiologist has personally reviewed the images and dictated, reviewed, or edited the final report. Performing Organization Address City/State/ZIP Code P jose Number [place] from Last 3 Months Insurance Type Payer Benefit Subscriber ID Effective Phone Address Plan / Dates Group Medicare MEDICARE MEDICARE [id number] 2016- [place] PART A B [facility] OUT OF [id number] 1-P [facility] [address] Rell Segal Personal/F Self 1950 [address] (Home) [place], [place] [address] Advance Directives For more information, please contact: [phone] Patient Cow Buyer Explanation Type Date Recorded Health Care Directive
--- OUTSIDE RECORDS SUMMARY | 2020-10-13 23:00 | XMS REPORT | Clinical Summary ---
Author Author [facility] Organization [facility] Address Unknown Phone Unavailable Care Team Providers Care Sliver Lapper Name Role Phone Ngoc Zapata MD PCP Nora Mcdonough RN Unavailable Unavailable Rakesh Irizarry MD Unavailable Unavailable Source Comments Some departments are not documenting in the electronic medical record. If you d o not see the information that you expected, contact Release of Information in [facility] [employer] Information Management department at [phone] for further assistan ce in locating additional records.[facility] Allergies Comments Active Allergy Reactions Severity Noted Date Penicillins HIVES Medium 11/20/2007 Medications End Date Status Medication Sig Dispensed Refills Start Date Active DIGITEK 250 mcg tablet Take 1 Tab by 0 mouth Daily With Dinner. Active lisinopril-hydrochlorothi Take 1 Tab by 0 azide (PRINZIDE, mouth Every ZESTORETIC) 20-25 mg per Morning. tablet Active carvedilol (COREG) 12.5 Take 1 Tab by 0 mg tablet mouth Twice Daily. Active fenofibrate Take 1 Tab by 0 nanocrystallized (TRICOR) mouth At 145 mg tablet Bedtime Daily. Active ezetimibe (ZETIA) 10 mg Take 1 Tab by 0 tablet mouth At Bedtime Daily. Active aspirin EC 81 mg tablet Take 1 Tab by 0 mouth Every Morning. Active LOVAZA 1 gram Cap Take 2 Caps 0 by mouth Twice Daily. Active ALEVE 220 mg Tab Take 1 Tab by 0 mouth Twice Daily as needed. For back pain. Active clopidogrel (PLAVIX) 75 Take 1 Tab by 0 0 /12/200 mg Tab mouth Daily. 8 Active nitroglycerin (NITROSTAT) 1 Tab As 100 1 11/21/200 0.4 mg tablet Needed for 8 Chest Pain. Active Problems Problem Noted Date Angina 11/21/2007 CAD (coronary artery disease) 11/21/2007 Hyperlipidemia 11/21/2007 Hypertension 11/21/2007 Surgical History Surgery Date Site/Laterality Comments HX SPLENECTOMY Medical History Medical History Date Comments Unspecified cardiovascular disease CAD (coronary artery disease) 11/21/2007 Hypertension 11/21/2007 Social History Date Tobacco Use Types Packs/Day Years Used Quit: 04/16/2001 Former Smoker Drinks/Week oz/Week Comments Alcohol Use occasional Yes Sex Assigned at Date Recorded Not on file Last Filed Vital Signs Reading Time Taken Comments Vital Sign 120/71 11/22/2007 7:00 AM CDT Blood Pressure 63 11/22/2007 7:00 AM CDT Pulse 36 C (96.8 F) 11/22/2007 7:00 AM CDT Temperature - - Respiratory Rate 95% 11/22/2007 7:00 AM CDT Oxygen Saturation - - Inhaled Oxygen Concentration 117.9 kg (260 lb) 11/22/2007 6:00 AM CDT Weight 70 cm (2' 3.56") 11/20/2007 5:00 PM CDT Height 240.69 11/20/2007 5:00 PM CDT Body Mass Index Plan of Treatment Health Maintenance Due Date Last Done Comments DTAP/TDAP VACCINES (1 - 01/01/1970 Tdap) HEPATITIS C SCREENING 01/01/1970 PHYSICAL (COMPREHENSIVE) 01/01/1970 EXAM COLORECTAL CANCER 01/01/2002 SCREENING SHINGLES RECOMBINANT 01/01/2002 VACCINE (1 of 2) ABDOMINAL AORTIC ANEURYSM 01/01/2017 SCREENING PNEUMONIA (PPSV23) 01/01/2017 VACCINE (1 of 1 - PPSV23) INFLUENZA VACCINE 12/10/2020 Results Not on filefrom Last 3 Months
== END 2020-10-10 19:00 | disposition home or self-care (01) ==
LOC: EDUNIT# 16:51 → ER FS 16:52
DX: R07.89 Other chest pain (principal); R42 Dizziness and giddiness; I10 Essential (primary) hypertension; E66.9 Obesity, unspecified; F41.9 Anxiety disorder, unspecified; Z68.42 Body mass index [BMI] 45.0-49.9, adult; Z95.5 Presence of coronary angioplasty implant and graft; Z95.810 Presence of automatic (implantable) cardiac defibrillator; Z79.899 Other long term (current) drug therapy; Z79.01 Long term (current) use of anticoagulants; Z79.82 Long term (current) use of aspirin
CPT/HCPCS: 36415; 71045; 80053; 83735; 83880; 84484; 85007; 85027; 85610; 85730; 93005; 93041

== ENCOUNTER → 2020-12-01 | Outpatient (CLI) | payer MEDICARE, BC ==
--- NOTE | 2020-12-01 13:02 | Diagnostic Imaging Report ---
EXAMINATION: Chest 2 view HISTORY: Abdominal pain. COMPARISON: None available. FINDINGS: There is mild discoid atelectasis in the left midlung. No edema or pneumonia. No pleural effusion or pneumothorax. Heart size is normal. Right-sided pacemaker is present. Three surgical clips project over the left upper quadrant. IMPRESSION: 1. Mild atelectasis, otherwise clear lungs. Dictated by: Dictated on workstation # [id number]
--- NOTE | 2020-12-01 13:36 | Diagnostic Imaging Report ---
INDICATION: Generalized abdominal pain. COMPARISON: None. FINDINGS: Three frontal radiographic views of the abdomen were obtained. Small bowel loops are nondistended. There is no large collection of free intraperitoneal air. No unexpected extraosseous calcifications or radiopaque foreign bodies are seen. Osseous structures show age-related degenerative changes. Postsurgical changes of the proximal right femur are partially visualized. IMPRESSION: 1. Nonobstructed small bowel gas pattern. Dictated by: Dictated on workstation # [id number]
== END ==
LOC: RAD FS 11:53
PROVIDERS: ATTEND Family Medicine
DX: J98.11 Atelectasis (principal); R10.84 Generalized abdominal pain
CPT/HCPCS: 71046; 74018

== ENCOUNTER 2021-06-05 12:44 | Inpatient (IN) | payer MEDICARE, BC ==
[~2021-06-05] VITALS: Ht 175.3 cm; Wt 145.0 kg
[2021-06-05 13:06] LABS: BASOPHILS # (AUTO) 0.1 10^3/uL (0.0-0.1); BASOPHILS % (AUTO) 1 % (0-10); EOSINOPHILS # (AUTO) 0.1 10^3/uL (0.0-0.3); EOSINOPHILS % (AUTO) 1 % (0-10); HEMATOCRIT 35 % (40-54); HEMOGLOBIN 11.4 g/dL (13.3-17.7); LYMPHOCYTES # (AUTO) 1.6 10^3/uL (1.0-4.0); LYMPHOCYTES % (AUTO) 23 % (12-44); MEAN CORPUSCULAR HEMOGLOBIN 29 pg (25-34); MEAN CORPUSCULAR HGB CONC 33 g/dL (32-36); MEAN CORPUSCULAR VOLUME 88 fL (80-99); MEAN PLATELET VOLUME 11.4 fL (9.0-12.2); MONOCYTES # (AUTO) 0.8 10^3/uL (0.0-1.0); MONOCYTES % (AUTO) 11 % (0-12); NEUTROPHILS # (AUTO) 4.6 10^3/uL (1.8-7.8); NEUTROPHILS % (AUTO) 65 % (42-75); PLATELET COUNT 257 10^3/uL (130-400); WHITE BLOOD COUNT 7.2 10^3/uL (4.3-11.0)
[2021-06-05 13:16] LABS: INR 1.4 (0.8-1.4)
[2021-06-05 13:21] LABS: BILIRUBIN,URINE NEGATIVE (NEGATIVE); CLARITY,URINE CLEAR; COLOR,URINE YELLOW; GLUCOSE, URINE (UA) NEGATIVE (NEGATIVE); KETONES,URINE NEGATIVE (NEGATIVE); LEUKOCYTE ESTERASE ,URINE NEGATIVE (NEGATIVE); NITRITE,URINE NEGATIVE (NEGATIVE); PROTEIN,URINE TRACE (NEGATIVE)
[2021-06-05 13:25] LABS: BACTERIA,URINE TRACE /HPF; WBC,URINE 0-2 /HPF
[2021-06-05 13:26] LABS: FIBRIN DEGRADATION PRODUCTS 1.87 UG/ML (0.00-0.49)
--- NOTE | 2021-06-05 13:26 | ED General ---
General Chief Complaint: General Problems/Pain Stated Complaint: LOC Nursing Triage Note: Patient has been brought to ER by EMS after being found on the floor by family. Patient reports that he had been driking vodka last night and he stumbled and went down to the floor. He was unable to get up and stayed on the floor. Patient reports a pain in his left side. He really dosen't seem to have any other complaints. The family is very concerned and wanting him checked out. History of Present Illness Date Seen by Provider: Jun 05, 2021 Time Seen by Provider: 12:46 Initial Comments 71-year-old male with PMH of CHF, Alcoholic, morbid obesity, HTN, kidney cancer, prostate problems, back surgery in March 2021, gout, is brought in by EMS due to having a fall around midnight with patient unable to get up after that. Family found patient on the floor today morning. Patient is conscious and able to answer questions. Patient has some slurred speech which his daughter is saying is abnormal for him. Patient drank a bottle of vodka last night and he tripped and fell and was unable to get up, and family is not sure he stopped with just one bottle of vodka. Patient denies dizziness, nausea, vomiting, diarrhea, chest pain, blurry vision, weakness on either side of his body, abdominal pain, cough, S OB. Patient has chronic bilateral leg swelling due to his CHF, and patient is stating that his legs look better than usual. Patient denies head strike, LOC, when he fell last night. Patient at baseline is unable to lift his left leg appropriately. Patient is supposed to go to [facility] in [place] tomorrow for further assessment and management of his kidney cancer. Pt uses a walker at home. Allergies and Home Medications Allergies Coded Allergies: Penicillins (Unverified Allergy, rash, 11/10/11) Hpuhdgj-Aow-Oln Reductase Inhibitor (Unverified Allergy, LEG CRAMPS, 11/10/11) fish oil (Unverified Allergy, PVC'S, 11/10/11) Patient Home Medication List Home Medication List Reviewed: Yes Alprazolam (Alprazolam) 0.5 Mg Tab.rapdis, 1 EACH PO NEEDED, (Reported) Entered as Reported by: SHEBA MCMULLEN on 11/10/11 1259 Aspirin (Aspirin Ec 81 Mg) 81 Mg Tabec, 81 MG PO DAILY, (Reported) Entered as Reported by: SHEBA MCMULLEN on 11/10/11 125 Bupropion Hcl (Bupropion Hcl Er) 150 Mg Tablet.sa, 150 MG PO DAILY, (Reported) Entered as Reported by: SHEBA MCMULLEN on 11/10/11 125 Clopidogrel Bisulfate (Plavix 75 Mg) 75 Mg Tablet, 1 EACH PO DAILY, (Reported) Entered as Reported by: SHEBA MCMULLEN on 11/10/11 125 Digoxin (Digitek 250 Mcg) 250 Mcg Tablet, 1 EACH PO DAILY, (Reported) Entered as Reported by: SHEBA MCMULLEN on 11/10/11 125 Esomeprazole Mag Trihydrate (Nexium) 40 Mg Capsule.dr, 1 CAP PO DAILY, (Reported) Entered as Reported by: SHEBA MCMULLEN on 11/10/11 125 Ezetimibe (Zetia) 10 Mg Tablet, 1 TAB PO DAILY, (Reported) Entered as Reported by: SHEBA MCMULLEN on 11/10/11 125 Fenofibrate,Micronized (Tricor) 145 Mg Tablet, 1 EACH PO DAILY, (Reported) Entered as Reported by: SHEBA MCMULLEN on 11/10/11 125 Hctz/Lisinopril (Lisinopril-Hctz 20-25MG Tab) 1 Tab Tablet, 1 EACH PO DAILY, (Reported) Entered as Reported by: SHEBA MCMULLEN on 11/10/11 125 Metoprolol Tartrate (Lopressor 25 Mg Tab) 25 Mg Tablet, 1 EACH PO BID, (Reported) Entered as Reported by: SHEBA MCMULLEN on 11/10/11 125 Phenazopyridine Hcl (Pyridium) 200 Mg Tablet, 1 EACH PO TID, (Reported) Entered as Reported by: MINNIE BURR on 11/15/11 145 Ranitidine Hcl (Zantac 150 Mg) 150 Mg Tablet, 1 TAB PO DAILY, (Reported) Entered as Reported by: SHEBA MCMULLEN on 11/10/11 125 Review of Systems Review of Systems Constitutional: chills, diaphoresis, malaise, weakness EENTM: no symptoms reported Respiratory: no symptoms reported Cardiovascular: no symptoms reported Gastrointestinal: no symptoms reported Genitourinary: no symptoms reported Musculoskeletal: no symptoms reported, other (Leg swelling bilateral) Skin: no symptoms reported Psychiatric/Neurological: Other (dysarthria) Hematologic/Lymphatic: No Symptoms Reported Immunological/Allergic: no symptoms reported Past Ogfyvnd-Fftogw-Izmhqi Hx Patient Social History Tobacco Use?: No Use of E-Cig and/or Vaping dev: No Substance use?: No Alcohol type: Hard Liquor Seasonal Allergies Seasonal Allergies: Yes Past Medical History Surgeries: Yes (SPLENECTOMY, KIDNEY ABLATION, ) Adenoidectomy, Gallbladder, Tonsillectomy Respiratory: No Cardiac: Yes (PACEMAKER/DEFIB, STENTS) Hypertension Neurological: No Reproductive Disorders: No Genitourinary: Yes (KIDNEY CANCER) Gastrointestinal: Yes (SPLENECTOMY) Gall Bladder Disease Musculoskeletal: Yes Chronic Back Pain Endocrine: No HEENT: No Cancer: Yes Kidney Did You Recieve Any Treatments: Yes What Type of Treatment Did You: Surgical Intervention Psychosocial: Yes Anxiety Integumentary: No Blood Disorders: No Physical Exam Vital Signs Vital Signs - First Documented 06/05/21 12:58 Temp 36.0 Pulse 94 Resp 20 B/P (MAP) 134/90 (105) O2 Delivery Room Air Capillary Refill : Height, Weight, BMI Height: '" Weight: lbs. oz. kg; 48.00 BMI Method: General Appearance: No Apparent Distress Eyes: Bilateral Eye Normal Inspection, Bilateral Eye PERRL, Bilateral Eye EOMI, Bilateral Eye Lid Inflammation HEENT: PERRL/EOMI, Normal ENT Inspection, Pharynx Normal Neck: Full Range of Motion, Normal Inspection, Non Tender, Supple Respiratory: Chest Non Tender, Lungs Clear Cardiovascular: Regular Rate, Rhythm, Other (bilateral pedal edeam extending up to the knees with left side greater than right side. ) Gastrointestinal: Normal Bowel Sounds, No Pulsatile Mass, Non Tender, Soft, Other (obese abdomen, healed surgical scar in midline of abdomen) Extremity: Non Tender, Pedal Edema, Swelling, Other (unable to lift legs very much, but this is pt's baseline as per pt and daughter) Neurologic/Psychiatric: Alert, Oriented x3, No Motor/Sensory Deficits, Normal Mood/Affect, needle control cheniller II-XII Norm as Tested, Other (dysarthria present) Reflexes: 4+ Bicep (R), 4+ Bicep (L), 4+ Tricep (R), 4+ Tricep (L), 4+ Knee (R), 4+ Knee (L), 4+ Ankle (R), 4+ Ankle (L) Skin: Erythema (over the legs) Lymphatic: No Adenopathy Progress/Results/Core Measures Suspected Sepsis SIRS Temperature: Pulse: 94 Respiratory Rate: 20 Laboratory Tests 06/05/21 13:00: White Blood Count 7.2 Blood Pressure 134 /90 Mean: 105 Laboratory Tests 06/05/21 13:00: Creatinine 2.67H, INR Comment 1.4, Platelet Count 257, Total Bilirubin 1.6H Results/Orders Lab Results Laboratory Tests Test 06/05/21 13:00 06/05/21 13:17 Range/Units White Blood Count 7.2 4.3-11.0 10^3/uL Red Blood Count 3.94 L 4.30-5.52 10^6/uL Hemoglobin 11.4 L 13.3-17.7 g/dL Hematocrit 35 L 40-54 % Mean Corpuscular Volume 88 80-99 fL Mean Corpuscular Hemoglobin 29 25-34 pg Mean Corpuscular Hemoglobin Concent 33 32-36 g/dL Red Cell Distribution Width 20.0 H 10.0-14.5 % Platelet Count 257 130-400 10^3/uL Mean Platelet Volume 11.4 9.0-12.2 fL Immature Granulocyte % (Auto) 0 % Neutrophils (%) (Auto) 65 42-75 % Lymphocytes (%) (Auto) 23 12-44 % Monocytes (%) (Auto) 11 0-12 % Eosinophils (%) (Auto) 1 0-10 % Basophils (%) (Auto) 1 0-10 % Neutrophils # (Auto) 4.6 1.8-7.8 10^3/uL Lymphocytes # (Auto) 1.6 1.0-4.0 10^3/uL Monocytes # (Auto) 0.8 0.0-1.0 10^3/uL Eosinophils # (Auto) 0.1 0.0-0.3 10^3/uL Basophils # (Auto) 0.1 0.0-0.1 10^3/uL Immature Granulocyte # (Auto) 0.0 0.0-0.1 10^3/uL Prothrombin Time 18.0 H 12.2-14.7 SEC INR Comment 1.4 0.8-1.4 Activated Partial Thromboplast Time 36 H 24-35 SEC D-Dimer 1.87 H 0.00-0.49 UG/ML Sodium Level 137 135-145 MMOL/L Potassium Level 4.2 3.6-5.0 MMOL/L Chloride Level 99 98-107 MMOL/L Carbon Dioxide Level 24 21-32 MMOL/L Anion Gap 14 5-14 MMOL/L Blood Urea Nitrogen 67 H 7-18 MG/DL Creatinine 2.67 H 0.60-1.30 MG/DL Estimat Glomerular Filtration Rate 25 BUN/Creatinine Ratio 25 Glucose Level 134 H 70-105 MG/DL Calcium Level 8.6 8.5-10.1 MG/DL Corrected Calcium 9.0 8.5-10.1 MG/DL Total Bilirubin 1.6 H 0.1-1.0 MG/DL Aspartate Amino Transf (AST/SGOT) 52 H 5-34 U/L Alanine Aminotransferase (ALT/SGPT) 18 0-55 U/L Alkaline Phosphatase 91 40-136 U/L Troponin I < 0.30 <0.30 NG/ML Pro-B-Type Natriuretic Peptide 5719.0 H <75.0 PG/ML Total Protein 8.1 6.4-8.2 GM/DL Albumin 3.5 3.2-4.5 GM/DL Serum Alcohol 192 H <10 MG/DL Urine Color YELLOW Urine Clarity CLEAR Urine pH 6.0 5-9 Urine Specific [place] 1.010 L 1.016-1.022 Urine Protein TRACE H NEGATIVE Urine Glucose (UA) NEGATIVE NEGATIVE Urine Ketones NEGATIVE NEGATIVE Urine Nitrite NEGATIVE NEGATIVE Urine Bilirubin NEGATIVE NEGATIVE Urine Urobilinogen 0.2 < = 1.0 MG/DL Urine Leukocyte Esterase NEGATIVE NEGATIVE Urine RBC (Auto) NEGATIVE NEGATIVE Urine RBC NONE /HPF Urine WBC 0-2 /HPF Urine Crystals NONE /LPF Urine Bacteria TRACE /HPF Urine Casts PRESENT /LPF Urine Coarse Granular Casts 2-5 H /LPF Urine Mucus MODERATE H /LPF Urine Culture Indicated NO Urine Opiates Screen POSITIVE H NEGATIVE Urine Oxycodone Screen NEGATIVE NEGATIVE Urine Methadone Screen NEGATIVE NEGATIVE Urine Propoxyphene Screen NEGATIVE NEGATIVE Urine Barbiturates Screen NEGATIVE NEGATIVE Ur Tricyclic Antidepressants Screen NEGATIVE NEGATIVE Urine Phencyclidine Screen NEGATIVE NEGATIVE Urine Amphetamines Screen NEGATIVE NEGATIVE Urine Methamphetamines Screen NEGATIVE NEGATIVE Urine Benzodiazepines Screen NEGATIVE NEGATIVE Urine Cocaine Screen NEGATIVE NEGATIVE Urine Cannabinoids Screen NEGATIVE NEGATIVE My Orders Orders - ARABELLA CASTRO MD Cbc With Automated Diff (06/05/21 12:59) Protime With Inr (06/05/21 12:59) Partial Thromboplastin Time (06/05/21 12:59) Comprehensive Metabolic Panel (06/05/21 12:59) Fibrin Degradation Products (06/05/21 12:59) Troponin I Fs (06/05/21 12:59) Ua Culture If Indicated (06/05/21 12:59) Ekg Tracing (06/05/21 12:59) Nothing By Mouth (06/05/21 Lunch) Ed Iv/Invasive Line Start (06/05/21 12:59) Vital Signs Stroke Patient Q15M (06/05/21 12:59) Ct Head Wo-R/O Stroke (06/05/21 12:59) O2 (06/05/21 12:59) Intake & Output 06,14,22 (06/05/21 12:59) Monitor-Rhythm Ecg Trace Only (06/05/21 12:59) Dysphagia Screening Tool Q10MX1 (06/05/21 12:59) Drug Screen Stat (Urine) (06/05/21 13:01) Alcohol (06/05/21 13:01) Probnp Fs (06/05/21 13:01) Chest Pa/Lat (2 View) (06/05/21 13:04) Furosemide Injection (Lasix Injection) (06/05/21 13:45) Medications Given in ED Current Medications Medications Dose Ordered Sig/Mart Route Start Time Stop Time Status Last Admin Dose Admin Furosemide 40 mg ONCE ONCE IVP 06/05/21 13:45 06/05/21 13:46 DC 06/05/21 13:56 40 MG Vital Signs/I&O 06/05/21 12:58 Temp 36.0 Pulse 94 Resp 20 B/P (MAP) 134/90 (105) O2 Delivery Room Air Capillary Refill : Blood Pressure Mean: 105 Progress Note : Progress Note 1. SYNCOPE: DYSARTHRIA: ALCOHOLISM & ETOH INTOXICATION - CT HEAD & C-SPINE: no acute findings - CXR: unremarkable - Troponin: unremarkable - EKG as documented: paced - CBC/ CMP: seelabs: elevated bilirubin and AST - UA/ UDS: positive for opiates - s. ETOH: 192 - Pt uses a walker at home - Normal WBC - Will need Thiamine and folic acid iv, which is not available here. 2. ELEVATED D-DIMER: - D-dimer is elevated and will need u/s legs and VQ scan due to elevated Creatinine causing a barrier to CTA, also we do not have u/s available here today - May be due to renal cancer, however,pt has pedal edema with erythema as well 3. ACUTE CHF EXACERBATION: - Lasix 40mg iv STAT in ER - I & O - Zimmerman insertion - pro-BNP in 5,000's today, and was 7,720 on 05/18/21 - Cardiology consult needed; pt also has a pacemaker. 4. NGOZI: - s. creatinine is 2.67 and the last 2 creatinine levels were 2.63 and 2.2 as per daughter - Will hold fluids for now 5. Discussed with Dr. Lane, and accepted for admission to in-patient with telemetry monitoring. Will continue Carvedilol, and continue Lasix 40mg iv daily. If pt jeannie digoxin, will hold it and check digoxin level in [place]. - Pt's daughter agrees with plan - Pt's doctors and office helper are in [place] ECG Initial ECG Impression Date: Jun 05, 2021 Initial ECG Impression Time: 13:06 Initial ECG Rate: 108 Initial ECG Intervals paced Initial ECG Comparisson: No Previous ECG Available Diagnostic Imaging Diagonstic Imaging: Xray, CT Plain Films/CT/US/NM/MRI: head Comments [facility] [place], [place] NAME: VALENTINO PRESTON [facility] REC#: [id number] PT STATUS: REG ER : 1950 PHYSICIAN: ARABELLA CASTRO MD ADMIT DATE: 06/05/21/ER FS Draft Date of Exam:06/05/21 CHEST PA/LAT (2 VIEW) INDICATION: Syncope. TECHNIQUE: Two view chest 1:35 PM CORRELATION STUDY: 12/01/2020 FINDINGS: Right-sided AICD remains in place. Rather pronounced cardiac enlargement is again demonstrated and may be slightly increased. Vasculature overall stable. Chronic appearing changes about the lung parenchyma. No definitive infiltrate. Visualized osseous structures are unremarkable. IMPRESSION: 1. Cardiac enlargement without overt failure or otherwise acute findings of the chest. Dictated on workstation # [id number] Dict: 06/05/21 1349 Trans: 06/05/21 1354 [facility] [id number] Interpreted by: JATIN LUIS DO Electronically signed by: [place] [address] [place], [place] NAME: VALENTINO PRESTON [facility] REC#: [id number] PT STATUS: REG ER : 1950 PHYSICIAN: ARABELLA CASTRO MD ADMIT DATE: 06/05/21/ER FS Draft Date of Exam:06/05/21 CT HEAD WO-R/O STROKE PROCEDURE: CT head wo r/o stroke. TECHNIQUE: Multiple contiguous axial images were obtained through the brain without the use of intravenous contrast. Auto Exposure Controls were utilized during the CT exam to meet ALARA standards for radiation dose reduction. INDICATION: 71-year-old male, syncope, dysarthria. CORRELATION: None FINDINGS: There are diffuse atrophic changes with prominence of the ventricles and sulci. There are scattered areas of decreased attenuation, nonspecific but likely changes of chronic small vessel ischemic disease. There is otherwise normal farnsworth-white differentiation. No abnormal areas of attenuation to suggest edema from ischemia. There is no midline shift or mass effect. No evidence for acute intracranial hemorrhage or abnormal extra-axial fluid collection. Bony calvarium is intact. Paranasal sinuses are with areas of mild mucosal thickening. Mastoid air cells also appear clear. IMPRESSION: 1. No CT evidence for acute intracranial abnormality. 2. Age-related atrophic changes with changes of small vessel ischemic disease. Dictated on workstation # [id number] Dict: 06/05/21 1347 Trans: 06/05/21 1349 DO [id number] Interpreted by: JATIN LUIS DO Electronically signed by: Departure Communication (Admissions) Time/Spoke to Admitting Phy: 14:10 see progress note Impression Primary Impression: Elevated d-dimer Additional Impressions: Acute exacerbation of CHF (congestive heart failure) Qualified Codes: I50.9 - Heart failure, unspecified Alcohol intoxication Qualified Codes: F10.929 - Alcohol use, unspecified with intoxication, unspecified Acute kidney injury Disposition: 30 STILL A PATIENT Condition: Stable Admissions Decision to Admit Reason: Admit from ER (General) Decision to Admit/Date: Jun 05, 2021 Time/Decision to Admit Time: 14:08 Transfer Transfer Reason: Exceeds level of care Time Spoke to Accepting Phy: 14:10 Transfer Progress Notes see progress note above Transfer Facility: [facility] Method of Transfer: EMS Departure-Patient Inst. Referrals: SELF,STEWART SPENCER (PCP/Family) Primary Care Physician ARABELLA CASTRO MD Jun 05, 2021 13:26
[2021-06-05 13:27] LABS: ALANINE AMINOTRANSFERASE 18 U/L (0-55); ALBUMIN 3.5 GM/DL (3.2-4.5); ALKALINE PHOSPHATASE 91 U/L (40-136); BILIRUBIN,TOTAL 1.6 MG/DL (0.1-1.0); BUN/CREATININE RATIO 25; CALCIUM 8.6 MG/DL (8.5-10.1); CARBON DIOXIDE 24 MMOL/L (21-32); CHLORIDE 99 MMOL/L (98-107); CREATININE SERUM 2.67 MG/DL (0.60-1.30); GFR ESTIMATED 25; GLUCOSE 134 MG/DL (70-105); POTASSIUM 4.2 MMOL/L (3.6-5.0); SODIUM 137 MMOL/L (135-145); TOTAL PROTEIN 8.1 GM/DL (6.4-8.2)
[2021-06-05 13:33] LABS: AMPHETAMINE SCREEN, URINE NEGATIVE (NEGATIVE); BARBITURATE SCREEN URINE NEGATIVE (NEGATIVE); BENZODIAZEPINES SCREEN URINE NEGATIVE (NEGATIVE); CANNABINOID SCREEN, URINE NEGATIVE (NEGATIVE); COCAINE SCREEN URINE NEGATIVE (NEGATIVE); METHADONE STAT NEGATIVE (NEGATIVE); METHAMPHETAMINE SCREEN URINE S NEGATIVE (NEGATIVE); OPIATE SCREEN URINE POSITIVE (NEGATIVE); OXYCODONE STAT NEGATIVE (NEGATIVE); PROPOXYPHENE STAT NEGATIVE (NEGATIVE); TRICYCLIC ANTIDEPRESSANTS SCRE NEGATIVE (NEGATIVE)
[2021-06-05] MEDS ORDERED: FUROSEMIDE 40 MG/4 ML INJ (LASIX) IVP ONE (13:45)
--- NOTE | 2021-06-05 13:49 | Diagnostic Imaging Report ---
PROCEDURE: CT head wo r/o stroke. TECHNIQUE: Multiple contiguous axial images were obtained through the brain without the use of intravenous contrast. Auto Exposure Controls were utilized during the CT exam to meet ALARA standards for radiation dose reduction. INDICATION: 71-year-old male, syncope, dysarthria. CORRELATION: None FINDINGS: There are diffuse atrophic changes with prominence of the ventricles and sulci. There are scattered areas of decreased attenuation, nonspecific but likely changes of chronic small vessel ischemic disease. There is otherwise normal farnsworth-white differentiation. No abnormal areas of attenuation to suggest edema from ischemia. There is no midline shift or mass effect. No evidence for acute intracranial hemorrhage or abnormal extra-axial fluid collection. Bony calvarium is intact. Paranasal sinuses are with areas of mild mucosal thickening. Mastoid air cells also appear clear. IMPRESSION: 1. No CT evidence for acute intracranial abnormality. 2. Age-related atrophic changes with changes of small vessel ischemic disease. Dictated by: Dictated on workstation # [id number]
--- NOTE | 2021-06-05 13:56 | Diagnostic Imaging Report ---
INDICATION: Syncope. TECHNIQUE: Two view chest 1:35 PM CORRELATION STUDY: 12/01/2020 FINDINGS: Right-sided AICD remains in place. Rather pronounced cardiac enlargement is again demonstrated and may be slightly increased. Vasculature overall stable. Chronic appearing changes about the lung parenchyma. No definitive infiltrate. Visualized osseous structures are unremarkable. IMPRESSION: 1. Cardiac enlargement without overt failure or otherwise acute findings of the chest. Dictated by: Dictated on workstation # [id number]
[2021-06-05 16:20] VITALS: BP 125/84
[2021-06-05] MEDS ORDERED: RT-ALBUTEROL SULF 2.5 MG/3 ML PRE-MIX VIAL IH PRN (16:30)
[2021-06-05] MEDS ORDERED: THIAMINE IV NR ×2 (16:30)
[2021-06-05] MEDS ORDERED: LORazepam INJ 2 MG/ML (ATIVAN) VIAL IV PRN (16:30)
[2021-06-05] MEDS ORDERED: SODIUM CHLORIDE IV NR ×2 (16:30)
[2021-06-05] MEDS ORDERED: CATHETER FLUSH 10 ML SYR IVP PRN (16:45)
[2021-06-05] MEDS: ASPIRIN 81 MG CHEW (CHILDREN'S ASA) PO SCH (16:57)
[2021-06-05] MEDS: FOLIC ACID 1 MG TAB PO SCH (16:57)
[2021-06-05] MEDS ORDERED: ALLO100T PO (18:15)
[2021-06-05] MEDS ORDERED: ACET325C7 PO (18:15)
[2021-06-05] MEDS ORDERED: NITR0.4T42 SL (18:26)
[2021-06-05] MEDS ORDERED: GABA300S2 PO (18:26)
[2021-06-05] MEDS ORDERED: FINA5TAB6 PO (18:26)
[2021-06-05] MEDS ORDERED: ACHD5005 PO (18:26)
[2021-06-05] MEDS ORDERED: CARV25TA PO (18:26)
[2021-06-05] MEDS ORDERED: TMSL.4C PO (18:26)
[2021-06-05] MEDS ORDERED: DOCU-143 PO (18:26)
[2021-06-05] MEDS ORDERED: FURO40TA4 PO (18:26)
[2021-06-05] MEDS ORDERED: ISOS30TA82 PO (18:26)
[2021-06-05] MEDS: CATHETER FLUSH 10 ML SYR IVP SCH (20:31)
[2021-06-05] MEDS: FENOFIBRATE 134 MG (LOFIBRA) CAPSULE PO SCH (20:31)
[2021-06-05 20:40] VITALS: BP 118/79
[2021-06-06] VITALS (7 sets, daily range): BP systolic 95–161; BP diastolic 63–98
[2021-06-06] MEDS: CATHETER FLUSH 10 ML SYR IVP SCH ×3 (05:39→19:37)
[2021-06-06 06:01] LABS: BASOPHILS # (AUTO) 0.1 10^3/uL (0.0-0.1); BASOPHILS % (AUTO) 1 % (0-10); EOSINOPHILS # (AUTO) 0.1 10^3/uL (0.0-0.3); EOSINOPHILS % (AUTO) 1 % (0-10); HEMATOCRIT 34 % (40-54); HEMOGLOBIN 11.3 g/dL (13.3-17.7); LYMPHOCYTES # (AUTO) 1.6 10^3/uL (1.0-4.0); LYMPHOCYTES % (AUTO) 21 % (12-44); MEAN CORPUSCULAR HEMOGLOBIN 29 pg (25-34); MEAN CORPUSCULAR HGB CONC 33 g/dL (32-36); MEAN CORPUSCULAR VOLUME 87 fL (80-99); MEAN PLATELET VOLUME 11.7 fL (9.0-12.2); MONOCYTES # (AUTO) 0.8 10^3/uL (0.0-1.0); MONOCYTES % (AUTO) 11 % (0-12); NEUTROPHILS % (AUTO) 66 % (42-75); PLATELET COUNT 269 10^3/uL (130-400); WHITE BLOOD COUNT 7.6 10^3/uL (4.3-11.0)
[2021-06-06 06:33] LABS: CALCIUM 8.9 MG/DL (8.5-10.1); CREATININE SERUM 2.44 MG/DL (0.60-1.30)
[2021-06-06] MEDS: FUROSEMIDE 40 MG/4 ML INJ (LASIX) IV SCH (07:23)
--- NOTE | 2021-06-06 08:18 | Diagnostic Imaging Report ---
PROCEDURE: US Venous Lower Ext [place]. TECHNIQUE: Multiple real-time grayscale images were obtained over the lower extremities in various projections, bilaterally. Additional duplex Doppler and color Doppler images were also obtained. INDICATION: Elevated D-dimer, alcohol intoxication COMPARISON: None FINDINGS: The bilateral common femoral vein, femoral vein, deep femoral vein, and popliteal vein are normal in appearance. These vessels show normal compressibility, color flow and doppler augmentation. The visualized deep calf veins demonstrate no distinct intraluminal thrombus. IMPRESSION: 1. No sonographic evidence of deep venous thrombosis in the bilateral lower extremities. Dictated by: Dictated on workstation # [id number]
[2021-06-06] MEDS: FOLIC ACID 1 MG TAB PO SCH (09:02)
[2021-06-06] MEDS: ASPIRIN 81 MG CHEW (CHILDREN'S ASA) PO SCH (09:02)
[2021-06-06 09:40] LABS: ALBUMIN 3.1 GM/DL (3.2-4.5); BILIRUBIN,DIRECT 1.6 MG/DL (0.0-0.3); BILIRUBIN,INDIRECT 0.6 MG/DL; BILIRUBIN,TOTAL 2.2 MG/DL (0.1-1.0)
--- NOTE | 2021-06-06 09:45 | Consultation-Cardiology ---
HPI-Cardiology Cardiology Consultation: Date of Consultation 06/06/21 Time Seen by a Provider: 09:15 Date of Admission Attending Physician Amandeep Garcia MD Admitting Physician Harpal Murillo MD Consulting Physician Hitesh Rueda MD HPI: Chief Complaint: Progressive dyspnea Mr. Preston is a 71 yr old male. He reports he tripped and fell at home last night and was unable to get himself up off the floor. Per ED notes he had drank a bottle of Vodka per family report and fell at which time he was found on the floor by family who summoned EMS. He states he has chronic SOB which he feels was worse yesterday with increasing LE swelling. He reports his breathing is much better today and he feels great. His primary glazier structural glass is Dr. Zacarias at [facility]. He states he goes to the heart failure clinic at [facility] once a week for IV Lasix and infusion. He does not know the details. Review of Systems-Cardiology Review of Systems Constitutional: No chills, No fever; malaise Eyes: No vision change Ears/Nose/Throat: No epistaxis, No recent hearing loss Respiratory: As described under HPI Cardiovascular: As described under HPI Gastrointestinal: No constipation, No diarrhea, No nausea, No vomiting Genitourinary: dysuria (reports BPH); No hematuria Skin: No rash on exposed areas, No ulcerations on exposed areas Psychiatric/Neurological: No anxiety, No depression, No seizure, No focal weakness, No syncope Hematologic: No bleeding abnormalities SBG-Ceciat-Puajid Hx Patient Social History 2nd Hand Smoke Exposure: No Alcohol Use?: Yes Substance type: Opiates/Opioids Pt feels they are or have been: No Past Medical History PMH As described under Assessment. Family Medical History Family Medical History: He reports his mother and father both had CAD, but does not know the dertails Allergies and Home Medications Allergies Coded Allergies: Penicillins (Unverified Allergy, Unknown, rash, 06/05/21) Xbdnfxt-FMC-AbI Reductase Inhibitor (Unverified Allergy, Unknown, LEG CRAMPS, 06/05/21) fish oil (Unverified Allergy, Unknown, PVC'S, 06/05/21) Patient Home Medication List Aspirin (Aspirin EC) 81 Mg Tablet., 81 MG PO DAILY, (Reported) Entered as Reported by: ALMA RUBY on 06/06/21 4323 Last Action: Reviewed Carvedilol (Carvedilol) 25 Mg Tablet, 25 MG PO BID, (Reported) Entered as Reported by: Tiffani Steele on 06/05/211825 Last Action: Reviewed Docusate Sodium (Colace) 100 Mg Capsule, 100 MG PO DAILY PRN for CONSTIPATION- 1ST LINE, (Reported) Entered as Reported by: Tiffani Steele on 06/05/211825 Last Action: Reviewed Esomeprazole Magnesium (Nexium) 40 Mg Cap, 40 MG PO DAILY, (Reported) Entered as Reported by: ALMA RUBY on 06/06/211351 Last Action: Reviewed Fenofibrate Nanocrystallized (Fenofibrate) 145 Mg Tablet, 145 MG PO HS, (Reported) Entered as Reported by: ALMA RUBY on 06/06/211343 Last Action: Reviewed Finasteride (Finasteride) 5 Mg Tablet, 5 MG PO DAILY, (Reported) Entered as Reported by: Tiffani Steele on 06/05/211825 Last Action: Reviewed Furosemide (Furosemide) 40 Mg Tablet, 80 MG PO DAILY, (Reported) Entered as Reported by: Tiffani Steele on 06/05/211825 Last Action: Reviewed Furosemide (Lasix) 40 Mg Tablet, 40 MG PO HS, (Reported) Entered as Reported by: ALMA RUBY on 06/06/211346 Last Action: Reviewed Hydrocodone Bit/Acetaminophen (HYDROcodone/APAP 7.5/325 TAB) 1 Ea Tablet, 1 EA PO Q6H PRN for PAIN-MODERATE (5-7), (Reported) Entered as Reported by: AMANDEEP GARCIA on 06/06/21 1105 Last Action: Reviewed Isosorbide Mononitrate (Isosorbide Mononitrate ER) 30 Mg Tab.er.24h, 60 MG PO DAILY, (Reported) Entered as Reported by: Tiffani Steele on 06/05/211825 Last Action: Reviewed Isosorbide Mononitrate (Isosorbide Mononitrate ER) 30 Mg Tab.er.24h, 30 MG PO HS, (Reported) Entered as Reported by: ALMA RUBY on 06/06/21 134 Last Action: Reviewed Metolazone (Metolazone) 2.5 Mg Tablet, 2.5 MG PO DAILY, (Reported) Entered as Reported by: ALMA RUBY on 06/06/211342 Last Action: Reviewed Nitroglycerin (Nitroglycerin) 0.4 Mg Tab.subl, 0.4 MG SL NEEDED, (Reported) Entered as Reported by: Tiffani Steele on 06/05/211825 Last Action: Reviewed Semaglutide (Ozempic) 0.25 Mg/0.2 Ml Pen.injctr, 0.5 MG SC SUNDAY, (Reported) Entered as Reported by: ALMA RUBY on 06/06/211348 Last Action: Reviewed Tamsulosin HCl (Flomax) 0.4 Mg Cap, 0.4 MG PO HS, (Reported) Entered as Reported by: Tiffani Steele on 06/05/211825 Last Action: Reviewed Discontinued Medications Alprazolam (Alprazolam) 0.5 Mg Tab.rapdis, 1 EACH PO NEEDED, (Reported) Discontinued Reason: No Longer Taking Entered as Reported by: SHEBA MCMULLEN on 11/10/111258 Last Action: Discontinued Bupropion Hcl (Bupropion Hcl Er) 150 Mg Tablet.sa, 150 MG PO DAILY, (Reported) Discontinued Reason: No Longer Taking Entered as Reported by: SHEBA MCMULLEN on 11/10/111258 Last Action: Discontinued Clopidogrel Bisulfate (Plavix 75 Mg) 75 Mg Tablet, 1 EACH PO DAILY, (Reported) Discontinued Reason: No Longer Taking Entered as Reported by: SHEBA MCMULLEN on 11/10/111258 Last Action: Discontinued Digoxin (Digitek 250 Mcg) 250 Mcg Tablet, 1 EACH PO DAILY, (Reported) Discontinued Reason: No Longer Taking Entered as Reported by: SHEBA MCMULLEN on 11/10/111258 Last Action: Discontinued Ezetimibe (Zetia) 10 Mg Tablet, 1 TAB PO DAILY, (Reported) Discontinued Reason: No Longer Taking Entered as Reported by: SHEBA MCMULLEN on 11/10/111258 Last Action: Discontinued Gabapentin (Gabapentin) 300 Mg/6 Ml Solution, 300 MG PO HS, (Reported) Entered as Reported by: Tiffani Steele on 06/05/211825 Last Action: Discontinued Hctz/Lisinopril (Lisinopril-Hctz 20-25MG Tab) 1 Tab Tablet, 1 EACH PO DAILY, (Reported) Discontinued Reason: No Longer Taking Entered as Reported by: SHEBA MCMULLEN on 11/10/111258 Last Action: Discontinued Hydrocodone/Acetaminophen (Hydrocodone-Acetamin 5-325 mg) 1 Each Tablet, 1 TAB PO Q4H PRN for PAIN-MODERATE (5-7), (Reported) Entered as Reported by: Tiffani Steele on 06/05/21 182 Last Action: Discontinued Metoprolol Tartrate (Lopressor 25 Mg Tab) 25 Mg Tablet, 1 EACH PO BID, (Reported) Discontinued Reason: No Longer Taking Entered as Reported by: SHEBA MCMULLEN on 11/10/111258 Last Action: Discontinued Phenazopyridine Hcl (Pyridium) 200 Mg Tablet, 1 EACH PO TID, (Reported) Discontinued Reason: No Longer Taking Entered as Reported by: MINNIE BURR on 11/15/11 1451 Last Action: Discontinued Ranitidine Hcl (Zantac 150 Mg) 150 Mg Tablet, 1 TAB PO DAILY, (Reported) Discontinued Reason: No Longer Taking Entered as Reported by: SHEBA MCMULLEN on 11/10/111258 Last Action: Discontinued Physical Exam-Cardiology Physical Exam Vital Signs/I&O 06/06/21 06/07/21 06/07/21 06/07/21 23:47 00:47 03:05 07:00 Temp 36.8 36.7 Pulse 84 77 70 89 Resp 16 16 B/P (MAP) 95/63 (74) 100/67 (78) Pulse Ox 93 98 O2 Delivery NIV CPAP NIV CPAP 06/07/21 06/07/21 08:47 09:00 Temp 37.0 Pulse 90 Resp 16 B/P (MAP) 118/76 (90) Pulse Ox 98 98 O2 Delivery Nasal Cannula NIV CPAP O2 Flow Rate 2.00 06/07/21 00:00 Intake Total 1110 ml Output Total 1625 ml Balance -515 ml Capillary Refill : Constitutional: AAO x 3, well-developed, well-nourished, other (morbidly obese) HEENT: hearing is well preserved Neck: No carotid bruit; carotid pulses are 2 + bilaterally Respiratory: No accessory muscle use, No respiratory distress; chest expansion is symmetric, chest is bilaterally symmetric, other (good air entry) Cardiovascular: regular rate-rhythm; No JVD; S1 and S2, systolic murmur Gastrointestinal: No tender; soft, round; No guarding; audible bowel sounds Extremities: other (mod bilat LE swelling) Neurologic/Psychiatric: other (moves all extremities) Skin: No rash on exposed areas, No ulcerations on exposed areas Data Review Labs Laboratory Tests 06/07/21 05:36: White Blood Count 9.2, Red Blood Count 3.79L, Hemoglobin 11.1L, Hematocrit 33L, Mean Corpuscular Volume 88, Mean Corpuscular Hemoglobin 29, Mean Corpuscular Hemoglobin Concent 33, Red Cell Distribution Width 19.8H, Platelet Count 261, Mean Platelet Volume 12.0, Sodium Level 138, Potassium Level 3.8, Chloride Level 104, Carbon Dioxide Level 20L, Anion Gap 14, Blood Urea Nitrogen 60H, Creatinine 2.31H, Estimat Glomerular Filtration Rate 30, BUN/Creatinine Ratio 26, Glucose Level 100, Calcium Level 8.9, Corrected Calcium 9.6, Magnesium Level 2.2, Total Bilirubin 2.7H, Aspartate Amino Transf (AST/SGOT) 42H, Alanine Aminotransferase (ALT/SGPT) 18, Alkaline Phosphatase 51, Total Protein 7.6, Albumin 3.1L Radiology NAME: VALENTINO PRESTON [facility] REC#: [id number] PT STATUS: REG ER : 1950 PHYSICIAN: ARABELLA CASTRO MD ADMIT DATE: 06/05/21/ER FS Signed Date of Exam:06/05/21 CT HEAD WO-R/O STROKE PROCEDURE: CT head wo r/o stroke. TECHNIQUE: Multiple contiguous axial images were obtained through the brain without the use of intravenous contrast. Auto Exposure Controls were utilized during the CT exam to meet ALARA standards for radiation dose reduction. INDICATION: 71-year-old male, syncope, dysarthria. CORRELATION: None FINDINGS: There are diffuse atrophic changes with prominence of the ventricles and sulci. There are scattered areas of decreased attenuation, nonspecific but likely changes of chronic small vessel ischemic disease. There is otherwise normal farnsworth-white differentiation. No abnormal areas of attenuation to suggest edema from ischemia. There is no midline shift or mass effect. No evidence for acute intracranial hemorrhage or abnormal extra-axial fluid collection. Bony calvarium is intact. Paranasal sinuses are with areas of mild mucosal thickening. Mastoid air cells also appear clear. IMPRESSION: 1. No CT evidence for acute intracranial abnormality. 2. Age-related atrophic changes with changes of small vessel ischemic disease. Dictated by: Dictated on workstation # [id number] Dict: 06/05/21 1347 Trans: 06/05/21 [facility] [id number] Interpreted by: JATIN LUIS DO Electronically signed by: JATIN LUIS DO 06/05/21 1527 NAME: VALENTINO PRESTON [facility] REC#: [id number] PT STATUS: REG ER : 1950 PHYSICIAN: ARABELLA CASTRO MD ADMIT DATE: 06/05/21/ER FS Signed Date of Exam:06/05/21 CHEST PA/LAT (2 VIEW) INDICATION: Syncope. TECHNIQUE: Two view chest 1:35 PM CORRELATION STUDY: 12/01/2020 FINDINGS: Right-sided AICD remains in place. Rather pronounced cardiac enlargement is again demonstrated and may be slightly increased. Vasculature overall stable. Chronic appearing changes about the lung parenchyma. No definitive infiltrate. Visualized osseous structures are unremarkable. IMPRESSION: 1. Cardiac enlargement without overt failure or otherwise acute findings of the chest. Dictated by: Dictated on workstation # [id number] Dict: 06/05/21 1349 Trans: 06/05/[address] [facility] [id number] Interpreted by: JATIN LUIS DO Electronically signed by: JATIN LUIS DO 06/05/21 1529 NAME: VALENTINO PRESTON [facility] REC#: [id number] PT STATUS: ADM IN : 1950 PHYSICIAN: YOSELIN DANIELLE MD ADMIT DATE: 06/05/21/4TH Draft Date of Exam:06/06/21 US VENOUS LOWER EXT DEMETRIO PROCEDURE: US Venous Lower Ext Demetrio. TECHNIQUE: Multiple real-time grayscale images were obtained over the lower extremities in various projections, bilaterally. Additional duplex Doppler and color Doppler images were also obtained. INDICATION: Elevated D-dimer, alcohol intoxication COMPARISON: None FINDINGS: The bilateral common femoral vein, femoral vein, deep femoral vein, and popliteal vein are normal in appearance. These vessels show normal compressibility, color flow and doppler augmentation. The visualized deep calf veins demonstrate no distinct intraluminal thrombus. IMPRESSION: 1. No sonographic evidence of deep venous thrombosis in the bilateral lower extremities. Dictated on workstation # [id number] Dict: 06/06/21812 Trans: 06/06/21816 [facility] [id number] Interpreted by: ANUPAM COSTELLO MD Electronically signed by: ECG Impression ECG Comment V-paced A/P-Cardiology Assessment/Admission Diagnosis Non-syncopal fall ETOH abuse - family reports 1 bottle of Vodka yesterday ICM with acute on chronic systolic HF - per pt report - reports he goes to the [facility] HF clinic - PPM/AICD - managed by Dr. Zacarias CKD - follows with Dr. Hernandez of nephrology services - reports renal carcinoma - has has partial nephrectomy - details uknown CAD - h/o stents - details unknown - reports last stents greater than 5 yrs ago - Dr. Zacarias at [facility] is his primary glazier structural glass HTN HLD Sleep apnea - compliant with CPAP Morbid obesity Chronic back pain H/O Tobaccoism - quit greater than 10 yrs ago DM 2 GERD H/O spleenectomy H/O appendectomy Discussion and Recomendations Acute on chronic systolic CHF likely d/t ICM - treat with diuretics CKD 4 with renal carcinoma - monitor lab closely - Cr improved today Request records from [facility]/Dr. Zacarias Continue home medications including ASA d/t known h/o CAD Continue home BB (Coreg) Advise complete ETOH cessation - monitor for DT - management per medical services Request records from [facility] Further recs will be based on his hospital course We would like to thank medical services for this consult BRYCE BOB Jun 06, 2021 09:45
[2021-06-06] MEDS ORDERED: ASPIRIN 81 MG CHEW (CHILDREN'S ASA) PO NR (10:08)
[2021-06-06] MEDS ORDERED: PANTOPRAZOLE 40 MG (PROTONIX) TAB PO NR (10:09)
--- NOTE | 2021-06-06 10:43 | History & Physical ---
HPI History of Present Illness: 71 yo male came to the hospital after slipping and falling in the kitchen, hit his side on the table and couldn't get up, was there on all night until someone came. He says he slipped because he was just wearing socks on the linoleum floor. He had back surgery Apr 11, and his mobility isn't back to normal, has decreased sensation in left leg. He denies fever at home. Has been short of breath at times, but is chronic for him. Admits nausea but no vomiting. He has trouble with alternating constipation and diarrhea. Baseline kidney function was with creatinine around 1.8, but since back surgery had been above 2 since then. He sees Cardiology (Dr. Zacarias) and Nephrology (Dr. Hernandez) at [facility] in [place]. He was supposed to see his Uro at [facility] tomorrow, Dr. Rell Magallanes. Has a swollen lymph node in groin found by his primary Dr. Murillo, and reportedly was going to have biopsy here because it did not improve with antibiotic treatment, but patient cancelled and was going to have work-up at [facility]. Now he is concerned that he should try to get it done while he is here since he won't make it to his [facility] appointment tomorrow. He also had COVID early this year. He has been taking pain medication for his back, but says it doesn't work, usually takes 1/2 tab of hydrocodone/apap 7.5/325 about 4 times per day. He reports he drank alcohol y esterday because of his pain, but doesn't routinely drink on a regular basis and denies ever having alcohol withdrawal in the past and has no known liver history. Source: patient, family Exam Limitations: clinical condition (cpap use) Date seen by provider: Jun 06, 2021 Time Seen by Provider: 10:51 Attending Physician Amandeep Garcia MD PCP Harpal Murillo MD Consult Date of Admission Jun 05, 2021 at 16:10 Home Medications Home Medications Reviewed patient Home Medication Reconciliation performed by pharmacy medication reconciliations mathematical technician and/or nursing. Patients Allergies have been reviewed. Allergies Coded Allergies: Penicillins (Unverified Allergy, Unknown, rash, 06/05/21) Lzodoih-MRS-FcV Reductase Inhibitor (Unverified Allergy, Unknown, LEG CR AMPS, 06/05/21) fish oil (Unverified Allergy, Unknown, PVC'S, 06/05/21) BHW-Jwnwbv-Nyydpo Hx Patient Social History Smoking Status: Former Smoker (off and on for 10 years, quit some time ago) 2nd Hand Smoke Exposure: No Recent Hopitalizations: No Alcohol Use?: Yes (history of heavier use, had 3 drinks the night he fell- reports because of his pain) Substance type: Opiates/Opioids Immunizations Up To Date Influenza Vaccine Up-to-Date: Yes; Up-to-Date Past Medical History PMHx: Renal cell carcinoma CHF HTN HLD Sleep apnea CAD PVC CKD Surg Hx: Splenectomy Cardiac stenting Pacemaker/defibrillator placement Partial nephrectomy Family Medical History Significant Family History: Heart Disease, Cancer (father colon, mother colon), Hypertension Review of Systems ([facility]) Constitutional: No fever EENTM: nose congestion, throat pain (dry) Respiratory: No cough; short of breath Cardiovascular: No chest pain Gastrointestinal: abdominal pain, constipation, diarrhea, nausea; No vomiting Genitourinary: No dysuria Musculoskeletal: back pain, joint pain Skin: No rash Reviewed Test Results Reviewed Test Results Lab Laboratory Tests Test 06/05/21 13:00 06/05/21 13:17 06/05/21 16:53 06/06/21 05:53 Range/Units White Blood Count 7.2 7.6 4.3-11.0 10^3/uL Red Blood Count 3.94 L 3.93 L 4.30-5.52 10^6/uL Hemoglobin 11.4 L 11.3 L 13.3-17.7 g/dL Hematocrit 35 L 34 L 40-54 % Mean Corpuscular Volume 88 87 80-99 fL Mean Corpuscular Hemoglobin 29 29 25-34 pg Mean Corpuscular Hemoglobin Concent 33 33 32-36 g/dL Red Cell Distribution Width 20.0 H 19.3 H 10.0-14.5 % Platelet Count 257 269 130-400 10^3/uL Mean Platelet Volume 11.4 11.7 9.0-12.2 fL Immature Granulocyte % (Auto) 0 0 % Neutrophils (%) (Auto) 65 66 42-75 % Lymphocytes (%) (Auto) 23 21 12-44 % Monocytes (%) (Auto) 11 11 0-12 % Eosinophils (%) (Auto) 1 1 0-10 % Basophils (%) (Auto) 1 1 0-10 % Neutrophils # (Auto) 4.6 5.0 1.8-7.8 10^3/uL Lymphocytes # (Auto) 1.6 1.6 1.0-4.0 10^3/uL Monocytes # (Auto) 0.8 0.8 0.0-1.0 10^3/uL Eosinophils # (Auto) 0.1 0.1 0.0-0.3 10^3/uL Basophils # (Auto) 0.1 0.1 0.0-0.1 10^3/uL Immature Granulocyte # (Auto) 0.0 0.0 0.0-0.1 10^3/uL Prothrombin Time 18.0 H 12.2-14.7 SEC INR Comment 1.4 0.8-1.4 Activated Partial Thromboplast Time 36 H 24-35 SEC D-Dimer 1.87 H 0.00-0.49 UG/ML Sodium Level 137 138 135-145 MMOL/L Potassium Level 4.2 4.0 3.6-5.0 MMOL/L Chloride Level 99 106 98-107 MMOL/L Carbon Dioxide Level 24 19 L 21-32 MMOL/L Anion Gap 14 13 5-14 MMOL/L Blood Urea Nitrogen 67 H 65 H 7-18 MG/DL Creatinine 2.67 H 2.44 H 0.60-1.30 MG/DL Estimat Glomerular Filtration Rate 25 28 BUN/Creatinine Ratio 25 27 Glucose Level 134 H 102 70-105 MG/DL Calcium Level 8.6 8.9 8.5-10.1 MG/DL Corrected Calcium 9.0 8.5-10.1 MG/DL Total Bilirubin 1.6 H 2.2 H 0.1-1.0 MG/DL Aspartate Amino Transf (AST/SGOT) 52 H 61 H 5-34 U/L Alanine Aminotransferase (ALT/SGPT) 18 21 0-55 U/L Alkaline Phosphatase 91 57 40-136 U/L Troponin I < 0.30 <0.30 NG/ML Pro-B-Type Natriuretic Peptide 5719.0 H <75.0 PG/ML Total Protein 8.1 8.0 6.4-8.2 GM/DL Albumin 3.5 3.1 L 3.2-4.5 GM/DL Serum Alcohol 192 H <10 MG/DL Urine Color YELLOW Urine Clarity CLEAR Urine pH 6.0 5-9 Urine Specific Kegley 1.010 L 1.016-1.022 Urine Protein TRACE H NEGATIVE Urine Glucose (UA) NEGATIVE NEGATIVE Urine Ketones NEGATIVE NEGATIVE Urine Nitrite NEGATIVE NEGATIVE Urine Bilirubin NEGATIVE NEGATIVE Urine Urobilinogen 0.2 < = 1.0 MG/DL Urine Leukocyte Esterase NEGATIVE NEGATIVE Urine RBC (Auto) NEGATIVE NEGATIVE Urine RBC NONE /HPF Urine WBC 0-2 /HPF Urine Crystals NONE /LPF Urine Bacteria TRACE /HPF Urine Casts PRESENT /LPF Urine Coarse Granular Casts 2-5 H /LPF Urine Mucus MODERATE H /LPF Urine Culture Indicated NO Urine Opiates Screen POSITIVE H NEGATIVE Urine Oxycodone Screen NEGATIVE NEGATIVE Urine Methadone Screen NEGATIVE NEGATIVE Urine Propoxyphene Screen NEGATIVE NEGATIVE Urine Barbiturates Screen NEGATIVE NEGATIVE Ur Tricyclic Antidepressants Screen NEGATIVE NEGATIVE Urine Phencyclidine Screen NEGATIVE NEGATIVE Urine Amphetamines Screen NEGATIVE NEGATIVE Urine Methamphetamines Screen NEGATIVE NEGATIVE Urine Benzodiazepines Screen NEGATIVE NEGATIVE Urine Cocaine Screen NEGATIVE NEGATIVE Urine Cannabinoids Screen NEGATIVE NEGATIVE Digoxin Level < 0.30 L 0.80-2.00 NG/ML Direct Bilirubin 1.6 H 0.0-0.3 MG/DL Indirect Bilirubin 0.6 MG/DL B-Type Natriuretic Peptide 2514.6 H <100.0 PG/ML Radiology NAME: RELL PRESTON [facility] REC#: [id number] PT STATUS: REG ER : 1950 PHYSICIAN: ARABELLA CASTRO MD ADMIT DATE: 06/05/21/ER FS Signed Date of Exam:06/05/21 CT HEAD WO-R/O STROKE PROCEDURE: CT head wo r/o stroke. TECHNIQUE: Multiple contiguous axial images were obtained through the brain without the use of intravenous contrast. Auto Exposure Controls were utilized during the CT exam to meet ALARA standards for radiation dose reduction. INDICATION: 71-year-old male, syncope, dysarthria. CORRELATION: None FINDINGS: There are diffuse atrophic changes with prominence of the ventricles and sulci. There are scattered areas of decreased attenuation, nonspecific but likely changes of chronic small vessel ischemic disease. There is otherwise normal farnsworth-white differentiation. No abnormal areas of attenuation to suggest edema from ischemia. There is no midline shift or mass effect. No evidence for acute intracranial hemorrhage or abnormal extra-axial fluid collection. Bony calvarium is intact. Paranasal sinuses are with areas of mild mucosal thickening. Mastoid air cells also appear clear. IMPRESSION: 1. No CT evidence for acute intracranial abnormality. 2. Age-related atrophic changes with changes of small vessel ischemic disease. Dictated by: Dictated on workstation # [id number] Dict: 06/05/21 1347 Trans: 06/05/21 1527 [id number] Interpreted by: JATIN LUIS DO Electronically signed by: JATIN LUIS DO 06/05/21 1527 NAME: RELL PRESTON [facility] REC#: [id number] PT STATUS: REG ER : 1950 PHYSICIAN: ARABELLA CASTRO MD ADMIT DATE: 06/05/21/ER FS Signed Date of Exam:06/05/21 CHEST PA/LAT (2 VIEW) INDICATION: Syncope. TECHNIQUE: Two view chest 1:35 PM CORRELATION STUDY: 12/01/2020 FINDINGS: Right-sided AICD remains in place. Rather pronounced cardiac enlargement is again demonstrated and may be slightly increased. Vasculature overall stable. Chronic appearing changes about the lung parenchyma. No definitive infiltrate. Visualized osseous structures are unremarkable. IMPRESSION: 1. Cardiac enlargement without overt failure or otherwise acute findings of the chest. Dictated by: Dictated on workstation # [id number] Dict: 06/05/21 1349 Trans: 06/05/21 1529 B [id number] Interpreted by: JATIN LUIS DO Electronically signed by: JATIN LUIS DO 06/05/21 1529 NAME: RELL PRESTON [facility] REC#: [id number] PT STATUS: ADM IN : 1950 PHYSICIAN: YOSELIN DANIELLE MD ADMIT DATE: 06/05/21/4TH Draft Date of Exam:06/06/21 US VENOUS LOWER EXT DEMETRIO PROCEDURE: US Venous Lower Ext Demetrio. TECHNIQUE: Multiple real-time grayscale images were obtained over the lower extremities in various projections, bilaterally. Additional duplex Doppler and color Doppler images were also obtained. INDICATION: Elevated D-dimer, alcohol intoxication COMPARISON: None FINDINGS: The bilateral common femoral vein, femoral vein, deep femoral vein, and popliteal vein are normal in appearance. These vessels show normal compressibility, color flow and doppler augmentation. The visualized deep calf veins demonstrate no distinct intraluminal thrombus. IMPRESSION: 1. No sonographic evidence of deep venous thrombosis in the bilateral lower extremities. Dictated on workstation # [id number] Dict: 06/06/21812 Trans: 06/06/21816 CVB [id number] Interpreted by: ANUPAM COSTELLO MD Electronically signed by: Physical Exam-([facility]) Physical Exam Vital Signs VS - Last 72 Hours, by Label 06/05/21 06/05/21 06/05/21 06/05/21 12:58 14:50 16:20 17:37 Temp 36.0 36.4 Pulse 94 95 94 92 Resp 20 14 20 B/P (MAP) 134/90 (105) 115/91 125/84 (98) Pulse Ox 92 98 O2 Delivery Room Air Room Air Nasal Cannula O2 Flow Rate 2.00 06/05/21 06/05/21 06/05/21 06/05/21 18:40 19:00 20:00 20:40 Temp 36.6 Pulse 89 94 Resp 20 B/P (MAP) 118/79 (92) Pulse Ox 97 O2 Delivery Nasal Cannula Nasal Cannula Nasal Cannula O2 Flow Rate 2.00 2.00 2.00 06/06/21 06/06/21 06/06/21 06/06/21 00:00 01:00 04:20 05:35 Temp 36.2 Pulse 90 99 96 Resp 20 18 B/P (MAP) 123/85 (98) 120/82 (95) Pulse Ox 96 97 O2 Delivery NIV CPAP NIV CPAP Nasal Cannula O2 Flow Rate 2.00 06/06/21 06/06/21 06/06/21 06/06/21 06:43 08:00 08:34 12:28 Temp 37.3 36.9 Pulse 100 98 95 Resp 19 16 B/P (MAP) 161/76 (104) 144/98 (113) Pulse Ox 96 96 98 O2 Delivery NIV CPAP NIV CPAP NIV CPAP O2 Flow Rate 2.00 06/06/21 12:39 Pulse 92 Capillary Refill : General Appearance: mild distress, obese Respiratory: rales Cardiovascular: regular rate, rhythm Gastrointestinal: normal bowel sounds, soft, other (ttp left abdomen just below ribs, no bruising or mass noted) Extremities: pedal edema (2+ pitting to thighs) Neurologic/Psychiatric: alert, normal mood/affect Skin: normal color, warm/dry Assessment/Plan Assessment/Plan Admission Status: Inpatient Order (span 2 midnights) Reason for Inpatient Admission: CHF exacerbation with multiple comorbidities (1) Fall Status: Acute Assessment & Plan: While intoxicated, secondary to slipping. Head CT and CXR okay, pain is in soft tissue area on left abdomen, will obtain US due to e levated LFTs as well. PT. Qualifiers: Qualified Codes: W19.XXXA - Unspecified fall, initial encounter (2) Hypertension Status: Chronic Assessment & Plan: Resume home medications Qualifiers: Qualified Codes: I10 - Essential (primary) hypertension (3) Renal cell carcinoma Status: Chronic Assessment & Plan: Follows with [facility], see lymphadenopathy. (4) Inguinal lymphadenopathy Status: Acute Assessment & Plan: Will review clinic chart to determine what is needed as far as further work-up, discussed may need to be set up outpatient but will start process. (5) Elevated LFTs Status: Acute Assessment & Plan: Reportedly new, including elevated direct bili, will check liver ultrasound and hepatitis panel. (6) Chronic kidney disease (CKD) Status: Chronic Assessment & Plan: Baseline until Mar reportedly to be around 1.8 creatinine, but since then has been around 2.5, so he is near his baseline which is still being worked on outpatient with Cardiology and Nephrology- was recently taking Lasix 80 mg daily. Qualifiers: Qualified Codes: N18.4 - Chronic kidney disease, stage 4 (severe) (7) Hyperlipidemia Status: Chronic (8) Chronic pain Status: Chronic Assessment & Plan: Resume home medication. (9) Acute exacerbation of CHF (congestive heart failure) Status: Acute Assessment & Plan: Elevated BNP, worsening edema. Cardiology consulted, appreciate recommendations. Qualifiers: Qualified Codes: I50.9 - Heart failure, unspecified (10) Alcohol intoxication Status: Acute Assessment & Plan: No history of persistent alcohol use or withdrawal, monitor closely. Qualifiers: Qualified Codes: F10.920 - Alcohol use, unspecified with intoxication, uncomplicated (11) Elevated d-dimer Status: Acute Assessment & Plan: Bilateral venous dopplers negative, V/Q scan pending. (12) Obstructive sleep apnea Status: Chronic Assessment & Plan: Using home CPAP, uses when lying down whether sleeping or not. (13) DVT prophylaxis Status: Acute Assessment & Plan: Enoxaparin AMANDEEP GARCIA MD Jun 06, 2021 10:42
[2021-06-06] MEDS ORDERED: GABA300C PO (11:05)
[2021-06-06] MEDS ORDERED: HYDR-34 PO (11:05)
[2021-06-06] MEDS: HYDROcodone/APAP 7.5 MG/325 MG (LORTAB, LORCET PLUS) TABLET PO PRN ×2 (12:18→17:43)
--- NOTE | 2021-06-06 13:19 | Consultation-Cardiology ---
HPI-Cardiology Cardiology Consultation: Date of Consultation 06/06/21 Time Seen by a Provider: 09:40 Date of Admission Attending Physician Amandeep Garcia MD Admitting Physician Harpal Murillo MD Consulting Physician TRACI XAVIER MD, MA, FACP, FACC, FSCAI, CCDS HPI: Chief Complaint: Progressive dyspnea Mr. Gillespie is a 71 yr old male. He reports he tripped and fell at home last night and was unable to get himself up off the floor. Per ED notes he had drank a bottle of Vodka per family report and fell at which time he was found on the floor by family who summoned EMS. He states he has chronic SOB which he feels was worse yesterday with increasing LE swelling. He reports his breathing is much better today and he feels great. His primary help desk associate is Dr. Zacarias at [facility]. He states he goes to the heart failure clinic at [facility] once a week for IV Lasix and infusion. He does not know the details. Review of Systems-Cardiology Review of Systems Constitutional: No chills, No fever; malaise Eyes: No vision change Ears/Nose/Throat: No epistaxis, No recent hearing loss Respiratory: As described under HPI Cardiovascular: As described under HPI Gastrointestinal: No constipation, No diarrhea, No nausea, No vomiting Genitourinary: dysuria (reports BPH); No hematuria Skin: No rash on exposed areas, No ulcerations on exposed areas Psychiatric/Neurological: No anxiety, No depression, No seizure, No focal weakness, No syncope Hematologic: No bleeding abnormalities SUI-Eyjasq-Budvvg Hx Patient Social History Smoking Status: Former Smoker (off and on for 10 years, quit some time ago) 2nd Hand Smoke Exposure: No Alcohol Use?: Yes (history of heavier use, had 3 drinks the night he fell- reports because of his pain) Substance type: Opiates/Opioids Pt feels they are or have been: No Past Medical History PMH As described under Assessment. Family Medical History Family Medical History: He reports his mother and father both had CAD, but does not know the dertails Allergies and Home Medications Allergies Coded Allergies: Penicillins (Unverified Allergy, Unknown, rash, 06/05/21) Nzploxi-DPF-QbR Reductase Inhibitor (Unverified Allergy, Unknown, LEG CRAMPS, 06/05/21) fish oil (Unverified Allergy, Unknown, PVC'S, 06/05/21) Patient Home Medication List Home Medication List Reviewed: Yes Acetaminophen (Tylenol) 325 Mg Capsule, 325 MG PO NEEDED, (Reported) Entered as Reported by: Tiffani Steele on 06/05/211814 Last Action: Reviewed Allopurinol (Allopurinol) 100 Mg Tablet, 100 MG PO, (Reported) Entered as Reported by: Tiffani Steele on 06/05/211814 Last Action: Reviewed Aspirin (Aspirin Ec 81 Mg) 81 Mg Tabec, 81 MG PO DAILY, (Reported) Entered as Reported by: SHEBA MCMULLEN on 11/10/111258 Last Action: Reviewed Carvedilol (Carvedilol) 25 Mg Tablet, 25 MG PO BID, (Reported) Entered as Reported by: Tiffani Steele on 06/05/211825 Last Action: Reviewed Docusate Sodium (Colace) 100 Mg Capsule, 100 MG PO DAILY, (Reported) Entered as Reported by: Tiffani Steele on 06/05/211825 Last Action: Reviewed Esomeprazole Mag Trihydrate (Nexium) 40 Mg Capsule.dr, 1 CAP PO DAILY, (Reported) Entered as Reported by: SHEBA MCMULLEN on 11/10/111258 Last Action: Reviewed Fenofibrate,Micronized (Tricor) 145 Mg Tablet, 1 EACH PO DAILY, (Reported) Entered as Reported by: SHEBA MCMULLEN on 11/10/111258 Last Action: Reviewed Finasteride (Finasteride) 5 Mg Tablet, 5 MG PO DAILY, (Reported) Entered as Reported by: Tiffani Steele on 06/05/211825 Last Action: Reviewed Furosemide (Furosemide) 40 Mg Tablet, 40 MG PO DAILY, (Reported) Entered as Reported by: Tiffani Steele on 06/05/211825 Last Action: New Order Gabapentin (Neurontin) 300 Mg Capsule, 300 MG PO HS, (Reported) Entered as Reported by: AMANDEEP GARCIA on 06/06/211104 Last Action: Reviewed Hydrocodone Bit/Acetaminophen (HYDROcodone/APAP 7.5/325 TAB) 1 Ea Tablet, 1 EA PO Q6H PRN for PAIN-MODERATE (5-7), (Reported) Entered as Reported by: AMANDEEP GARCIA on 06/06/215 Last Action: Continued Isosorbide Mononitrate (Isosorbide Mononitrate ER) 30 Mg Tab.er.24h, 30 MG PO DAILY, (Reported) Entered as Reported by: Tiffani Steele on 06/05/211825 Last Action: Reviewed Nitroglycerin (Nitroglycerin) 0.4 Mg Tab.subl, 0.4 MG SL NEEDED, (Reported) Entered as Reported by: Tiffani Steele on 06/05/211825 Last Action: Reviewed Tamsulosin HCl (Flomax) 0.4 Mg Cap, 0.4 MG PO DAILY, (Reported) Entered as Reported by: Tiffani Steele on 06/05/211825 Last Action: Reviewed Discontinued Medications Alprazolam (Alprazolam) 0.5 Mg Tab.rapdis, 1 EACH PO NEEDED, (Reported) Discontinued Reason: No Longer Taking Entered as Reported by: SHEBA MCMULLEN on 11/10/111258 Last Action: Discontinued Bupropion Hcl (Bupropion Hcl Er) 150 Mg Tablet.sa, 150 MG PO DAILY, (Reported) Discontinued Reason: No Longer Taking Entered as Reported by: SHEBA MCMULLEN on 11/10/111258 Last Action: Discontinued Clopidogrel Bisulfate (Plavix 75 Mg) 75 Mg Tablet, 1 EACH PO DAILY, (Reported) Discontinued Reason: No Longer Taking Entered as Reported by: SHEBA MCMULLEN on 11/10/111258 Last Action: Discontinued Digoxin (Digitek 250 Mcg) 250 Mcg Tablet, 1 EACH PO DAILY, (Reported) Discontinued Reason: No Longer Taking Entered as Reported by: SHEBA MCMULLEN on 11/10/111258 Last Action: Discontinued Ezetimibe (Zetia) 10 Mg Tablet, 1 TAB PO DAILY, (Reported) Discontinued Reason: No Longer Taking Entered as Reported by: SHEBA MCMULLEN on 11/10/111258 Last Action: Discontinued Gabapentin (Gabapentin) 300 Mg/6 Ml Solution, 300 MG PO HS, (Reported) Entered as Reported by: Tiffani Steele on 06/05/211825 Last Action: Discontinued Hctz/Lisinopril (Lisinopril-Hctz 20-25MG Tab) 1 Tab Tablet, 1 EACH PO DAILY, (Reported) Discontinued Reason: No Longer Taking Entered as Reported by: SHEBA MCMULLEN on 11/10/111258 Last Action: Discontinued Hydrocodone/Acetaminophen (Hydrocodone-Acetamin 5-325 mg) 1 Each Tablet, 1 TAB PO Q4H PRN for PAIN-MODERATE (5-7), (Reported) Entered as Reported by: Tiffani Steele on 06/05/21 182 Last Action: Discontinued Metoprolol Tartrate (Lopressor 25 Mg Tab) 25 Mg Tablet, 1 EACH PO BID, (Reported) Discontinued Reason: No Longer Taking Entered as Reported by: SHEBA MCMULLEN on 11/10/111258 Last Action: Discontinued Phenazopyridine Hcl (Pyridium) 200 Mg Tablet, 1 EACH PO TID, (Reported) Discontinued Reason: No Longer Taking Entered as Reported by: MINNIE BURR on 11/15/11 1451 Last Action: Discontinued Ranitidine Hcl (Zantac 150 Mg) 150 Mg Tablet, 1 TAB PO DAILY, (Reported) Discontinued Reason: No Longer Taking Entered as Reported by: SHEBA MCMULLEN on 11/10/111258 Last Action: Discontinued Physical Exam-Cardiology Physical Exam Vital Signs/I&O 06/06/21 06/06/21 06/06/21 06/06/21 04:20 05:35 06:43 08:00 Pulse 96 100 Resp 18 B/P (MAP) 120/82 (95) Pulse Ox 97 96 O2 Delivery NIV CPAP Nasal Cannula NIV CPAP O2 Flow Rate 2.00 2.00 06/06/21 06/06/21 06/06/21 08:34 12:28 12:39 Temp 37.3 36.9 Pulse 98 95 92 Resp 19 16 B/P (MAP) 161/76 (104) 144/98 (113) Pulse Ox 96 98 O2 Delivery NIV CPAP NIV CPAP 06/06/21 00:00 Intake Total 500 ml Output Total 1150 ml Balance -650 ml Capillary Refill : Constitutional: AAO x 3, well-developed, well-nourished, other (morbidly obese) HEENT: hearing is well preserved Neck: No carotid bruit; carotid pulses are 2 + bilaterally Respiratory: No accessory muscle use, No respiratory distress; chest expansion is symmetric, chest is bilaterally symmetric, other (good air entry) Cardiovascular: regular rate-rhythm; No JVD; S1 and S2, systolic murmur Gastrointestinal: No tender; soft, round; No guarding; audible bowel sounds Extremities: other (mod bilat LE swelling) Neurologic/Psychiatric: other (moves all extremities) Skin: No rash on exposed areas, No ulcerations on exposed areas Data Review Labs Laboratory Tests 06/05/21 16:53: Digoxin Level < 0.30L 06/06/21 05:53: White Blood Count 7.6, Red Blood Count 3.93L, Hemoglobin 11.3L, Hematocrit 34L, Mean Corpuscular Volume 87, Mean Corpuscular Hemoglobin 29, Mean Corpuscular Hemoglobin Concent 33, Red Cell Distribution Width 19.3H, Platelet Count 269, Mean Platelet Volume 11.7, Immature Granulocyte % (Auto) 0, Neutrophils (%) (Auto) 66, Lymphocytes (%) (Auto) 21, Monocytes (%) (Auto) 11, Eosinophils (%) (Auto) 1, Basophils (%) (Auto) 1, Neutrophils # (Auto) 5.0, Lymphocytes # (Auto) 1.6, Monocytes # (Auto) 0.8, Eosinophils # (Auto) 0.1, Basophils # (Auto) 0.1, I mmature Granulocyte # (Auto) 0.0, Sodium Level 138, Potassium Level 4.0, Chloride Level 106, Carbon Dioxide Level 19L, Anion Gap 13, Blood Urea Nitrogen 65H, Creatinine 2.44H, Estimat Glomerular Filtration Rate 28, BUN/Creatinine Ratio 27, Glucose Level 102, Calcium Level 8.9, Total Bilirubin 2.2H, Direct Bilirubin 1.6H, Indirect Bilirubin 0.6, Aspartate Amino Transf (AST/SGOT) 61H, Alanine Aminotransferase (ALT/SGPT) 21, Alkaline Phosphatase 57, B-Type Natri uretic Peptide 2514.6H, Total Protein 8.0, Albumin 3.1L Laboratory Tests 06/05/21 13:00 06/06/21 05:53 A/P-Cardiology Assessment/Admission Diagnosis Non-syncopal fall ETOH abuse - family reports 1 bottle of Vodka yesterday ICM with acute on chronic systolic HF - per pt report - reports he goes to the [facility] HF clinic - PPM/AICD - managed by Dr. Zacarias CKD 4 - follows with Dr. Hernandez of nephrology services - reports renal carcinoma - has has partial nephrectomy - details uknown CAD - h/o stents - details unknown - reports last stents greater than 5 yrs ago - Dr. Zacarias at [facility] Kamaljit is his primary help desk associate HTN HLD Sleep apnea - compliant with CPAP Morbid obesity Chronic back pain H/O Tobaccoism - quit greater than 10 yrs ago DM 2 GERD H/O spleenectomy H/O appendectomy Discussion and Recomendations Acute on chronic systolic CHF likely d/t ICM - treat with diuretics CKD 4 with renal carcinoma - monitor lab closely Request records from [facility]/Dr. Zacarias Continue home medications including ASA d/t known h/o CAD Continue home BB (Coreg) Advise complete ETOH cessation - monitor for DT - management per medical services Request records from [facility] Further recs will be based on his hospital course We would like to thank medical services for this consult TRACI XAVIER MD FACP FAC CCDS Jun 06, 2021 13:19
[2021-06-06] MEDS ORDERED: ISOS30TA82 PO (13:40)
[2021-06-06] MEDS ORDERED: METO2.5T PO (13:43)
[2021-06-06] MEDS ORDERED: FENO145T26 PO (13:44)
[2021-06-06] MEDS ORDERED: ENOXAPARIN 40 MG/0.4 ML (LOVENOX) SYR SQ SCH (13:45)
[2021-06-06] MEDS ORDERED: FURO-124 PO (13:47)
[2021-06-06] MEDS ORDERED: SEMA0.25 SC (13:49)
[2021-06-06] MEDS ORDERED: NF-ESOM40C PO (13:52)
[2021-06-06] MEDS ORDERED: ASPI-1238 PO (13:53)
[2021-06-06] MEDS ORDERED: ENOXAPARIN 40 MG/0.4 ML (LOVENOX) SYR SC SCH (14:00)
--- NOTE | 2021-06-06 14:24 | Diagnostic Imaging Report ---
INDICATION: Elevated liver enzymes. PROCEDURE: Ultrasound abdomen complete. TECHNIQUE: Multiple Real-time grayscale images were obtained of the abdomen in various projections. FINDINGS: The liver is enlarged at 23 cm. No discrete liver mass is detected. The portal vein is patent and shows normal direction of flow. The gallbladder is slightly contracted. No definite gallstones or sludge are seen. There is no wall thickening or biliary ductal dilatation. The pancreas is obscured by bowel gas. The spleen is surgically absent. The aorta is nonaneurysmal. The IVC is patent. The kidneys do contain multiple cysts. The largest cyst on the right is approximately 7.9 x 6.3 x 6.4 cm. The largest cyst on the left measures 3.5 x 3.2 x 3.3 cm. No calculus or hydronephrosis is detected. There is no ascites. IMPRESSION: 1. Hepatomegaly. 2. No evidence of cholelithiasis or acute cholecystitis. 3. Status post splenectomy. 4. Bilateral renal cysts. Dictated by: Dictated on workstation # [id number]
--- NOTE | 2021-06-06 14:34 | Diagnostic Imaging Report ---
INDICATION: Elevated D-dimer. TECHNIQUE: Patient was administered 5.5 mCi technetium 99m MAA intravenously and imaging over the chest was performed in multiple obliquities. Ventilation scan was not performed. COMPARISON: Comparison is made with chest radiograph from one day earlier. FINDINGS: There is fairly homogeneous perfusion of both lungs. There is a rounded area of photopenia in the right upper lung consistent with patient's known defibrillator. No pleural-based perfusion defects are seen. IMPRESSION: Unremarkable perfusion study. Dictated by: Dictated on workstation # [id number]
--- NOTE | 2021-06-06 15:19 | Physical Therapy Evaluation ---
PT Evaluation-General Medical Diagnosis Admission Date Jun 05, 2021 at 16:10 Medical Diagnosis: CHF Onset Date: Jun 05, 2021 Therapy Diagnosis Therapy Diagnosis: debility/weakness Precautions Precautions/Isolations: Fall Prevention, Standard Precautions Referral Physician: Sherwin Reason for Referral: Evaluation/Treatment Medical History Pertinent Medical History: Alcoholism, Heart Failure, HTN Current History EMS secondary to patient tripped and fell at home after drinking a bottle of vodka per family report. Reviewed History: Yes Social History Home: Single Level Current Living Status: Spouse Prior Prior Level of Function SCALE: Activities may be completed with or without assistive devices. 2-Iikdjjngbc-sydamqp completes the activity by him/herself with no assistance from a helper. 5-Set-up or Clean-up Assistance-helper sets up or cleans up; patient completes activity. [place] assists only prior to or following the activity. 4-Supervision or Touching Assistance-helper provides verbal cues and/or t ouching/steadying and/or contact guard assistance as patient completes activity. Assistance may be provided throughout the activity or intermittently. 3-Partial/Moderate Assistance-helper does LESS THAN HALF the effort. [place] lifts, holds or supports trunk or limbs, but provides less than half the effort. 2-Substantial/Maximal Assistance-helper does MORE THAN HALF the effort. [place] lifts or holds trunk or limbs and provides more than half the effort. 1-Ukzljwxdy-ejsfke does ALL the effort. Patient does none of the effort to complete the activity. Or, the assistance of 2 or more helpers is required for the patient to complete the activity. If activity was not attempted, code reason: 7-Patient Refused. 9-Not Applicable-not attempted and the patient did not perform the activity before the current illness, exacerbation or injury. 10-Not Attempted due to Environmental Limitations-(lack of equipment, weather restraints, etc.). 88-Not Attempted due to Medical Conditions or Safety Concerns. Bed Mobility: 6 Transfers (B,C,W/C): 6 Gait: 6 Stairs: 6 Indoor Mobility (Ambulation): Independent Stairs: Independent Prior Devices Use: None PT Evaluation-Current Subjective Patient reluctantly agrees to PT. Objective Patient Orientation: Person, Time, Situation Attachments: Oxygen, Zimmerman Catheter ROM/Strength ROM Lower Extremities bilateral LE limited due to edema Strength Lower Extremities 4-/5 grossly bilateral LE Integumentary/Posture Bladder Incontinence: Zimmerman Cath Posture WFL Neuromuscular (Tone, Coordination, Reflexes) grossly intact Sensory Vision: Functional Hearing: Functional Transfers Lying to Sitting/Side of Bed(Q: 4 (SBA) Sit to Stand (QC): 4 (CGA) Chair/Kuk-sa-Bmgsk Xfer(QC): 4 (CGA) Gait Mode of Locomotion: Walk Anticipated Mode of Locomotion: Walk Walk 10 feet (QC): 4 Walk 50 ft with 2 Turns(QC): 4 Walk 150 ft (QC): 4 Distance: 150' Gait Assistive Device: FWW Comments/Gait Description safe and functional with no deviation Balance Sitting Static: Normal Sitting Dynamic: Normal Standing Static: Normal Standing Dynamic: Normal Assessment/Needs 71 y.o. male, will be seen short term by skilled PT to address functional mobility to ensure safe return to home at maximum LOF. Patient is currently S BA-CGA with all mobility. Rehab Potential: Fair PT Process Plant Operator Goals Custodial Goals PT Process Plant Operator Goals Time Frame: Jun 17, 2021 Roll Left & Right (QC): 6 Sit to Lying (QC): 6 Lying-Sitting on Side/Bed(QC): 6 Sit to Stand (QC): 6 Chair/Qlf-sh-Ofcjs Xfer(QC): 6 Toilet Transfer (QC): 6 Walk 10 feet (QC): 6 Walk 50ft with 2 Turns (QC): 6 Walk 150 ft (QC): 6 PT Plan Problem List Problem List: Activity Tolerance, Transfer, Bed Mobility Treatment/Plan Treatment Plan: Continue Plan of Care Treatment Plan: Bed Mobility, Education, Functional Activity [place], Functional Strength, Gait, Safety, Therapeutic Exercise, Transfers Treatment Duration: Jun 17, 2021 Frequency: 6 times per week Estimated Hrs Per Day: .25 hour per day Patient and/or Family Agrees t: Yes Time/GCodes Time In: 1500 Time Out: 1513 Total Billed Treatment Time: 13 Total Billed Treatment 1 visit EVMod 13 min HAO STOKES PT Jun 06, 2021 15:19
[2021-06-06] MEDS: FENOFIBRATE 134 MG (LOFIBRA) CAPSULE PO SCH (19:36)
[2021-06-07] MEDS ORDERED: diphenhydrAMINE 25 MG TAB (BENADRYL) PO ONE (00:09)
[2021-06-07] MEDS: HYDROcodone/APAP 7.5 MG/325 MG (LORTAB, LORCET PLUS) TABLET PO PRN ×2 (00:10→13:15)
[2021-06-07] MEDS ORDERED: diphenhydrAMINE 25 MG TAB (BENADRYL) PO PRN ×2 (00:15)
[2021-06-07 03:05] VITALS: BP 100/67
[2021-06-07 05:40] LABS: HEMATOCRIT 33 % (40-54); HEMOGLOBIN 11.1 g/dL (13.3-17.7); MEAN CORPUSCULAR HEMOGLOBIN 29 pg (25-34); MEAN CORPUSCULAR HGB CONC 33 g/dL (32-36); MEAN CORPUSCULAR VOLUME 88 fL (80-99); PLATELET COUNT 261 10^3/uL (130-400); WHITE BLOOD COUNT 9.2 10^3/uL (4.3-11.0)
[2021-06-07] MEDS: FUROSEMIDE 40 MG/4 ML INJ (LASIX) IV SCH (06:00)
[2021-06-07] MEDS: CATHETER FLUSH 10 ML SYR IVP SCH (06:01)
[2021-06-07 06:05] LABS: ALBUMIN 3.1 GM/DL (3.2-4.5); BILIRUBIN,TOTAL 2.7 MG/DL (0.1-1.0); CALCIUM 8.9 MG/DL (8.5-10.1); CREATININE SERUM 2.31 MG/DL (0.60-1.30); MAGNESIUM 2.2 MG/DL (1.6-2.4); POTASSIUM 3.8 MMOL/L (3.6-5.0); TOTAL PROTEIN 7.6 GM/DL (6.4-8.2)
[2021-06-07 08:47] VITALS: BP 118/76
--- NOTE | 2021-06-07 08:57 | Progress Note - Cardiology ---
Cardiology SOAP Progress Note Subjective: Sitting up on the side of the bed States he feels his breathing is better No c/o CP or palpitations Feels LE swelling has improved Objective: I&O/Vital Signs 06/06/21 06/07/21 06/07/21 06/07/21 23:47 00:47 03:05 07:00 Temp 36.8 36.7 Pulse 84 77 70 89 Resp 16 16 B/P (MAP) 95/63 (74) 100/67 (78) Pulse Ox 93 98 O2 Delivery NIV CPAP NIV CPAP 06/07/21 06/07/21 08:47 09:00 Temp 37.0 Pulse 90 Resp 16 B/P (MAP) 118/76 (90) Pulse Ox 98 98 O2 Delivery Nasal Cannula NIV CPAP O2 Flow Rate 2.00 06/07/21 00:00 Intake Total 1110 ml Output Total 1625 ml Balance -515 ml Constitutional: AAO x 3, well-developed, well-nourished, other (morbidly obese) Respiratory: No accessory muscle use, No respiratory distress; chest expansion is symmetric, chest is bilaterally symmetric, other (good air entry) Cardiovascular: regular rate-rhythm; No JVD; S1 and S2, systolic murmur Gastrointestional: No tender; soft, round; No guarding; audible bowel sounds Extremities: other (mod bilat LE swelling) Neurologic/Psychiatric: other (moves all extremities) Skin: No rash on exposed areas, No ulcerations on exposed areas Results/Procedures: Labs Laboratory Tests 06/07/21 05:36: White Blood Count 9.2, Red Blood Count 3.79L, Hemoglobin 11.1L, Hematocrit 33L, Mean Corpuscular Volume 88, Mean Corpuscular Hemoglobin 29, Mean Corpuscular Hemoglobin Concent 33, Red Cell Distribution Width 19.8H, Platelet Count 261, Mean Platelet Volume 12.0, Sodium Level 138, Potassium Level 3.8, Chloride Level 104, Carbon Dioxide Level 20L, Anion Gap 14, Blood Urea Nitrogen 60H, Creatinine 2.31H, Estimat Glomerular Filtration Rate 30, BUN/Creatinine Ratio 26, Glucose Level 100, Calcium Level 8.9, Corrected Calcium 9.6, Magnesium Level 2.2, Total Bilirubin 2.7H, Aspartate Amino Transf (AST/SGOT) 42H, Alanine Aminotransferase (ALT/SGPT) 18, Alkaline Phosphatase 51, Total Protein 7.6, Albumin 3.1L Laboratory Tests 06/05/21 13:00 06/06/21 05:53 06/07/21 05:36 A/P: Assessment: Non-syncopal fall ETOH abuse - family reports 1 bottle of Vodka yesterday ICM with acute on chronic systolic HF - per pt report - reports he goes to the [facility] HF clinic - Echocardiogram of 06-22-20 at [facility] by Dr. Zacarias showed LVEF 30%; mild to mod MR; LA enlargement; Mild TR; AoV sclerosis with mild aortic insufficiency; aortic root and ascending aorta enlargement. Mod to severe pulmonary HTN. - PPM/AICD - managed by Dr. Zacarias CKD 4 - follows with Dr. Hernandez of nephrology services - reports renal carcinoma - has has partial nephrectomy - details uknown CAD - h/o stents - details unknown - reports last stents greater than 5 yrs ago - Cardiac cath of 04-17-[address] Zacarias 80% ostial first diagonal branch tana nosis. Medical tx advised. 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 LVEF 25% - Dr. Zacarias at [facility] is his primary speaking unit assembler HTN HLD Sleep apnea - compliant with CPAP Morbid obesity Chronic back pain H/O Tobaccoism - quit greater than 10 yrs ago DM 2 GERD H/O spleenectomy H/O appendectomy Plan: Acute on chronic systolic CHF likely d/t ICM - treat with diuretics - clinically improving CKD 4 with renal carcinoma - monitor lab closely Continue home medications including ASA d/t known h/o CAD Continue home BB (Coreg) Advise complete ETOH cessation - monitor for DT - management per medical services Reviewed records available from [facility] Jun 07, 2021 08:57
[2021-06-07] MEDS ORDERED: ASPIRIN 81 MG CHEW (CHILDREN'S ASA) PO SCH (09:00)
[2021-06-07] MEDS ORDERED: PANTOPRAZOLE 40 MG (PROTONIX) TAB PO SCH (09:00)
[2021-06-07] MEDS: ASPIRIN 81 MG CHEW (CHILDREN'S ASA) PO SCH (09:54)
[2021-06-07] MEDS: FOLIC ACID 1 MG TAB PO SCH (09:54)
--- NOTE | 2021-06-07 10:48 | Physical Therapy Daily Note ---
PT Daily Note-Current Subjective Patient agrees to PT. Patient requests assist with bed mobility and sit to stand transfers, however, patient is able to perform SBA Mental Status Patient Orientation: Person, Time, Situation Attachments: Zimmerman Catheter Transfers SCALE: Activities may be completed with or without assistive devices. 7-Yxeaujovcc-oyfyyjz completes the activity by him/herself with no assistance from a helper. 5-Set-up or Clean-up Assistance-helper sets up or cleans up; patient completes activity. [place] assists only prior to or following the activity. 4-Supervision or Touching Assistance-helper provides verbal cues and/or touching/steadying and/or contact guard assistance as patient completes activity. Assistance may be provided throughout the activity or intermittently. 3-Partial/Moderate Assistance-helper does LESS THAN HALF the effort. [place] lifts, holds or supports trunk or limbs, but provides less than half the effort. 2-Substantial/Maximal Assistance-helper does MORE THAN HALF the effort. [place] lifts or holds trunk or limbs and provides more than half the effort. 3-Dueqnmgdv-qjlpze does ALL the effort. Patient does none of the effort to complete the activity. Or, the assistance of 2 or more helpers is required for the patient to complete the activity. If activity was not attempted, code reason: 7-Patient Refused. 9-Not Applicable-not attempted and the patient did not perform the activity before the current illness, exacerbation or injury. 10-Not Attempted due to Environmental Limitations-(lack of equipment, weather restraints, etc.). 88-Not Attempted due to Medical Conditions or Safety Concerns. Lying to Sitting/Side of Bed(Q: 4 Sit to Stand (QC): 4 Chair/Lrv-ar-Rvxnv Xfer(QC): 4 SBA Gait Training Distance: 225' Walk 10 feet (QC): 4 Walk 50 ft with 2 Turns(QC): 4 Walk 150 ft (QC): 4 Gait Assistive Device: FWW SBA for safety, safe and functional gait sequence Assessment Patient reluctantly up in recliner but requesting CPap. SAO2 97% RA. Patient tolerated treatment well. Increase activity as patient allows. PT Patient Access Representative Goals Correction Goals PT Patient Access Representative Goals Time Frame: Jun 17, 2021 Roll Left & Right (QC): 6 Sit to Lying (QC): 6 Lying-Sitting on Side/Bed(QC): 6 Sit to Stand (QC): 6 Chair/Cqn-ap-Aufwn Xfer(QC): 6 Toilet Transfer (QC): 6 Walk 10 feet (QC): 6 Walk 50ft with 2 Turns (QC): 6 Walk 150 ft (QC): 6 PT Plan Treatment/Plan Treatment Plan: Continue Plan of Care Treatment Plan: Bed Mobility, Education, Functional Activity [place], Functional Strength, Gait, Safety, Therapeutic Exercise, Transfers Treatment Duration: Jun 17, 2021 Frequency: 6 times per week Estimated Hrs Per Day: .25 hour per day Patient and/or Family Agrees t: Yes Time/GCodes Time In: 1005 Time Out: 1017 Total Billed Treatment Time: 12 Total Billed Treatment 1 visit GT 12 min HAO STOKES PT Jun 07, 2021 10:48
--- NOTE | 2021-06-07 11:22 | Diagnostic Imaging Report ---
US SOFT TISSUE UNLISTED [id number] INDICATION: Left inguinal lymphadenopathy. COMPARISON: None available. TECHNIQUE: Grayscale and color Doppler imaging of the left groin was performed. FINDINGS: At the site of the palpable concern, there is an ovoid mass measuring 3.8 x 1.2 x 2.1 cm. This may represent an enlarged lymph node with cortical thickening. There is a more conventional appearing lymph node in this region measuring 1.9 x 3.9 x 1.2 cm which has maintenance of normal echogenic hilum, but there is some mild lobulated cortical thickening. IMPRESSION: 1. Elongated ovoid mass in the left groin may represent a pathologically enlarged lymph node. This could be neoplastic or reactive in nature. This would be amenable to ultrasound-guided biopsy, as deemed clinically indicated. Dictated by: Dictated on workstation # [id number]
[2021-06-07] MEDS ORDERED: LIDOCAINE 1% INJ 50 ML (XYLOCAINE) VIAL ONE (12:37)
[2021-06-07 12:43] VITALS: BP 111/70
[2021-06-07] MEDS ORDERED: LIDOCAINE 2% 20 ML (XYLOCAINE) VIAL INJ ONE (12:45)
[2021-06-07 12:59] LABS: INR 1.5 (0.8-1.4)
--- NOTE | 2021-06-07 15:06 | Progress Note - Cardiology ---
Cardiology SOAP Progress Note Subjective: No cp or palp or syncope No shortness of breath at rest Malaise and weakness are better today Chronic mild to mod leg swelling is unchanged Objective: I&O/Vital Signs 06/07/21 06/07/21 06/07/21 06/07/21 03:05 07:00 08:47 09:00 Temp 36.7 37.0 Pulse 70 89 90 Resp 16 16 B/P (MAP) 100/67 (78) 118/76 (90) Pulse Ox 98 98 98 O2 Delivery NIV CPAP Nasal Cannula NIV CPAP O2 Flow Rate 2.00 06/07/21 12:43 Temp 37.2 Pulse 69 Resp 20 B/P (MAP) 111/70 (84) Pulse Ox 98 O2 Delivery Nasal Cannula O2 Flow Rate 2.00 06/07/21 00:00 Intake Total 1110 ml Output Total 1625 ml Balance -515 ml Constitutional: AAO x 3, well-developed, well-nourished, other (morbidly obese) Respiratory: No accessory muscle use, No respiratory distress; chest expansion is symmetric, chest is bilaterally symmetric, other (good air entry) Cardiovascular: regular rate-rhythm; No JVD; S1 and S2, systolic murmur Gastrointestional: No tender; soft, round; No guarding; audible bowel sounds Extremities: other (mod bilat LE swelling) Neurologic/Psychiatric: other (moves all extremities) Skin: No rash on exposed areas, No ulcerations on exposed areas Results/Procedures: Labs Laboratory Tests 06/07/21 05:29: Prothrombin Time 19.0H, INR Comment 1.5H 06/07/21 05:36: White Blood Count 9.2, Red Blood Count 3.79L, Hemoglobin 11.1L, Hematocrit 33L, Mean Corpuscular Volume 88, Mean Corpuscular Hemoglobin 29, Mean Corpuscular Hemoglobin Concent 33, Red Cell Distribution Width 19.8H, Platelet Count 261, Mean Platelet Volume 12.0, Sodium Level 138, Potassium Level 3.8, Chloride Level 104, Carbon Dioxide Level 20L, Anion Gap 14, Blood Urea Nitrogen 60H, Creatinine 2.31H, Estimat Glomerular Filtration Rate 30, BUN/Creatinine Ratio 26, Glucose Level 100, Calcium Level 8.9, Corrected Calcium 9.6, Magnesium Level 2.2, Total Bilirubin 2.7H, Aspartate Amino Transf (AST/SGOT) 42H, Alanine Aminotransferase (ALT/SGPT) 18, Alkaline Phosphatase 51, Total Protein 7.6, Albumin 3.1L Laboratory Tests 06/06/21 05:53 06/07/21 05:36 A/P: Assessment: Non-syncopal fall ETOH abuse - family reports 1 bottle of Vodka yesterday ICM with acute on chronic systolic HF - per pt report - reports he goes to the [facility] HF clinic - Echocardiogram of 06-22-[address] [facility] by Dr. Zacarias showed LVEF 30%; mild to mod MR; LA enlargement; Mild TR; AoV sclerosis with mild aortic insufficiency; aortic root and ascending aorta enlargement. Mod to severe pulmonary HTN. - PPM/AICD - managed by Dr. Zacarias CKD 4 - follows with Dr. Hernandez of nephrology services - reports renal carcinoma - has has partial nephrectomy - details uknown CAD - h/o stents - details unknown - reports last stents greater than 5 yrs ago - Cardiac cath of 04-17-[address] Zacarias 80% ostial first diagonal branch stenosis. Medical tx advised. 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 LVEF 25% - Dr. Zacarias at [facility] is his primary in shop service technician HTN HLD Sleep apnea - compliant with CPAP Morbid obesity Chronic back pain H/O Tobaccoism - quit greater than 10 yrs ago DM 2 GERD H/O spleenectomy H/O appendectomy Plan: Acute on chronic systolic CHF likely d/t ICM - treat with diuretics - clinically improving CKD 4 with renal carcinoma - monitor lab closely Continue home medications including ASA d/t known h/o CAD Continue home BB (Coreg) Advise complete ETOH cessation - monitor for DT - management per medical services Reviewed records available from TRACI Musa MD FACP FAC CCDS Jun 07, 2021 15:06
[2021-06-07 15:20] VITALS: BP 121/80
--- NOTE | 2021-06-07 15:27 | Diagnostic Imaging Report ---
INDICATION: Enlarged left groin lymph node. Patient presents for ultrasound-guided core biopsy. FINDINGS: Patient was brought to the procedure room, placed on the table in the supine position. Ultrasound imaging of the left groin was performed to evaluate appropriate entry site. Left groin was then prepped and draped in usual sterile fashion. Small amount of 1% lidocaine was utilized for local anesthesia. A total of four passes were made into the dominant lymph node in the left groin utilizing a 14-gauge Achieve needle. Core biopsies were obtained. Needle was removed and hemostasis was obtained using manual compression. Patient tolerated the procedure well and left the department in stable condition. IMPRESSION: Successful ultrasound-guided core biopsy of enlarged left groin lymph node. Pathology results are currently pending. Dictated by: Dictated on workstation # [id number]
--- NOTE | 2021-06-07 16:21 | Discharge Summary ---
Discharge Summary Hospital Course Problems/Diagnosis: (1) Fall Status: Acute Assessment & Plan: While intoxicated, secondary to slipping. Head CT and CXR okay, pain is in soft tissue area on left abdomen, abdominal ultrasound unremarkable in this area. PT worked with him inpatient. Qualifiers: Qualified Codes: W19.XXXA - Unspecified fall, initial encounter (2) Hypertension Status: Chronic Assessment & Plan: Resume home medications Qualifiers: Qualified Codes: I10 - Essential (primary) hypertension (3) Renal cell carcinoma Status: Chronic Assessment & Plan: Follows with [facility], see lymphadenopathy. (4) Inguinal lymphadenopathy Status: Acute Assessment & Plan: US showed ovoid mass, ultrasound guided biopsy done on day of d/c, will need to follow up on pathology report. (5) Elevated LFTs Status: Acute Assessment & Plan: Reportedly new, including elevated direct bili, liver ultrasound with hepatomegaly but no masses, possibly congestive. (6) Chronic kidney disease (CKD) Status: Chronic Assessment & Plan: Baseline until Mar reportedly to be around 1.8 creatinine, but since then has been around 2.5, so he is near his baseline which is still being worked on outpatient with Cardiology and Nephrology- was recently taking Lasix 80 mg daily. Creatinine decreased to 2.33 on d/c, will follow up with primary Cardiology and Nephrology. Qualifiers: Qualified Codes: N18.4 - Chronic kidney disease, stage 4 (severe) (7) Hyperlipidemia Status: Chronic (8) Chronic pain Status: Chronic Assessment & Plan: Resume home medication. (9) Acute exacerbation of CHF (congestive heart failure) Status: Resolved Resolution Date/Time: 06/07/21 @ 16:19 Assessment & Plan: Elevated BNP, worsening edema on admit, improved with IV lasix and he felt near baseline on day of d/c. Qualifiers: Qualified Codes: I50.9 - Heart failure, unspecified (10) Alcohol intoxication Status: Resolved Resolution Date/Time: 06/07/21 @ 16:19 Assessment & Plan: No history of persistent alcohol use, no withdrawal during stay. Qualifiers: Qualified Codes: F10.920 - Alcohol use, unspecified with intoxication, uncomplicated (11) Elevated d-dimer Status: Acute Assessment & Plan: Bilateral venous dopplers negative, V/Q scan without evidence of PE. (12) Obstructive sleep apnea Status: Chronic Assessment & Plan: Using home CPAP, uses when lying down whether sleeping or not. Hospital Course Date of Admission: Jun 05, 2021 at 16:10 Admission Diagnosis : Family Physician/Provider: Harpal Murillo MD Date of Discharge: 06/07/21 Discharge Diagnosis: See problem list Hospital Course: See problem list Labs and Pending Lab Test: Laboratory Tests 06/07/21 05:29: Prothrombin Time 19.0H, INR Comment 1.5H 06/07/21 05:36: White Blood Count 9.2, Red Blood Count 3.79L, Hemoglobin 11.1L, Hematocrit 33L, Mean Corpuscular Volume 88, Mean Corpuscular Hemoglobin 29, Mean Corpuscular Hemoglobin Concent 33, Red Cell Distribution Width 19.8H, Platelet Count 261, Mean Platelet Volume 12.0, Sodium Level 138, Potassium Level 3.8, Chloride Level 104, Carbon Dioxide Level 20L, Anion Gap 14, Blood Urea Nitrogen 60H, Creatinine 2.31H, Estimat Glomerular Filtration Rate 30, BUN/Creatinine Ratio 26, Glucose Level 100, Calcium Level 8.9, Corrected Calcium 9.6, Magnesium Level 2.2, Total Bilirubin 2.7H, Aspartate Amino Transf (AST/SGOT) 42H, Alanine Aminotransferase (ALT/SGPT) 18, Alkaline Phosphatase 51, Total Protein 7.6, Albumin 3.1L Home Meds Active Reported Aspirin EC (Aspirin) 81 Mg Tablet.dr 81 Mg PO DAILY Nexium (Esomeprazole Magnesium) 40 Mg Cap 40 Mg PO DAILY Ozempic (Semaglutide) 0.25 Mg/0.2 Ml Pen.injctr 0.5 Mg SC SUNDAY Lasix (Furosemide) 40 Mg Tablet 40 Mg PO HS Fenofibrate (Fenofibrate Nanocrystallized) 145 Mg Tablet 145 Mg PO HS Metolazone 2.5 Mg Tablet 2.5 Mg PO DAILY Isosorbide Mononitrate ER (Isosorbide Mononitrate) 30 Mg Tab.er.24h 30 Mg PO HS HYDROcodone/APAP 7.5/325 TAB (Acetaminophen/Hydrocodone Bitart) 1 Ea Tablet 1 Ea PO Q6H PRN Nitroglycerin 0.4 Mg Tab.subl 0.4 Mg SL NEEDED Flomax (Tamsulosin HCl) 0.4 Mg Cap 0.4 Mg PO HS Isosorbide Mononitrate ER (Isosorbide Mononitrate) 30 Mg Tab.er.24h 60 Mg PO DAILY TAKES 2 (30MG) TAB Furosemide 40 Mg Tablet 80 Mg PO DAILY TAKES 2 (40MG) TAB Finasteride 5 Mg Tablet 5 Mg PO DAILY Colace (Docusate Sodium) 100 Mg Capsule 100 Mg PO DAILY PRN Carvedilol 25 Mg Tablet 25 Mg PO BID Assessment/Pt DC Instructions Follow up with Dr. Murillo within a week of discharge. Discharge Diet: Low Sodium Diet, Cardiac Diet Activity as Tolerated: Yes Discharge Physical Examination Allergies: Coded Allergies: Penicillins (Unverified Allergy, Unknown, rash, 06/05/21) Lzupxqz-IHY-TxW Reductase Inhibitor (Unverified Allergy, Unknown, LEG CRAMPS, 06/05/21) fish oil (Unverified Allergy, Unknown, PVC'S, 06/05/21) General Appearance: No Apparent Distress Respiratory: Crackles (faint bibasilar) Cardiovascular: Regular Rate, Rhythm, Systolic Murmur Extremity: Pedal Edema (2+ to knee) Skin: Warm/Dry Neurologic/Psychiatric: Alert, Normal Mood/Affect Copy Copies To 1: ROXI,AMANDEEP MARION MD, MD Jun 07, 2021 16:17
[2021-06-07 17:33] VITALS: BP 121/80
== END 2021-06-07 17:33 | disposition home or self-care (01) | DRG 264 ==
LOC: EDUNIT# 12:44 → ER FS 12:45 → 4TH 16:10
PROVIDERS: ADMIT Internal Medicine; ATTEND Family Medicine
PROC: 5A09357 Assistance with Respiratory Ventilation, Less than 24 Consecutive Hours, Continuous Positive Airway Pressure (ICD-10-PCS; principal; 2021-06-06)
PROC: 07BJ3ZX Excision of Left Inguinal Lymphatic, Percutaneous Approach, Diagnostic (ICD-10-PCS; 2021-06-07)
DX: I13.0 Hypertensive heart and chronic kidney disease with heart failure and stage 1 through stage 4 chronic kidney disease, or unspecified chronic kidney disease (principal); I50.23 Acute on chronic systolic (congestive) heart failure; C64.9 Malignant neoplasm of unspecified kidney, except renal pelvis; N18.4 Chronic kidney disease, stage 4 (severe); N17.9 Acute kidney failure, unspecified; Z68.42 Body mass index [BMI] 45.0-49.9, adult; R59.1 Generalized enlarged lymph nodes; R79.89 Other specified abnormal findings of blood chemistry; E78.5 Hyperlipidemia, unspecified; G89.29 Other chronic pain; F10.920 Alcohol use, unspecified with intoxication, uncomplicated; G47.33 Obstructive sleep apnea (adult) (pediatric); I25.10 Atherosclerotic heart disease of native coronary artery without angina pectoris; I49.3 Ventricular premature depolarization; Z87.891 Personal history of nicotine dependence; Z86.16 Personal history of COVID-19; Z95.810 Presence of automatic (implantable) cardiac defibrillator; Z95.5 Presence of coronary angioplasty implant and graft; Z90.5 Acquired absence of kidney; E66.01 Morbid (severe) obesity due to excess calories; Z79.82 Long term (current) use of aspirin; Z79.899 Other long term (current) drug therapy; M54.9 Dorsalgia, unspecified; F41.9 Anxiety disorder, unspecified; Z90.81 Acquired absence of spleen; R55 Syncope and collapse; I25.5 Ischemic cardiomyopathy; E11.22 Type 2 diabetes mellitus with diabetic chronic kidney disease; K21.9 Gastro-esophageal reflux disease without esophagitis; W01.0XXA Fall on same level from slipping, tripping and stumbling without subsequent striking against object, initial encounter
CPT/HCPCS: 36415; 70450; 71046; 76700; 76942; 76999; 80048; 80053; 80076; 80162; 80306; 80320; 81000; 83735; 83880; 84484; 85025; 85027; 85379; 85610; 85652; 85730; 93005; 93041; 93970

== ENCOUNTER → 2021-07-01 | Outpatient (CLI) | payer MEDICARE, BC ==
[~2021-07-01] MED LIST changes: +ACET325C7 PO; +ACHD5005 PO; +ALLO100T PO; +ASPI-1238 PO; +CARV25TA PO; +DOCU-143 PO; +FENO145T26 PO; +FINA5TAB6 PO; +FURO-124 PO; +FURO40TA4 PO; +GABA300C PO; +GABA300S2 PO; +HYDR-34 PO; +ISOS30TA82 PO; +METO2.5T PO; +NITR0.4T42 SL; +SEMA0.25 SC; +TMSL.4C PO
--- NOTE | 2021-07-01 15:40 | Diagnostic Imaging Report ---
INDICATION: Fall with left hip pain. FINDINGS: Three views. Femoral head is in normal articulation with the acetabulum. No fracture is seen. There is end-stage arthritic disease with complete loss of joint space. Sclerosis along the femoral head and acetabulum with subcortical cystic changes and hypertrophic changes are seen. There is a deformity along the lateral femoral head with a bony prominence consistent with chronic impingement. There is a calcification in the soft tissues next to the greater trochanter. IMPRESSION: 1. No acute fracture. 2. Advanced arthritic disease of the left hip with impingement type deformity. 3. The soft tissue calcifications consistent with the calcific bursitis or tenosynovitis along the greater trochanter. Dictated by: Dictated on workstation # [id number]
== END ==
LOC: RAD FS 12:13
PROVIDERS: ATTEND Family Medicine
DX: M16.12 Unilateral primary osteoarthritis, left hip (principal); M21.952 Unspecified acquired deformity of left thigh; W19.XXXA Unspecified fall, initial encounter
CPT/HCPCS: 73502

== ENCOUNTER 2021-12-10 18:21 | Emergency (ER) | payer MEDICARE, BC ==
[2021-12-10] MEDS ORDERED: fentaNYL INJ 100 MCG/2 ML AMP IJ STA (19:08)
--- NOTE | 2021-12-10 19:14 | ED GU-Male ---
General Chief Complaint: - Reproductive Stated Complaint: URINARY RETENTION Nursing Triage Note: Patient presents to the ED with c/o urinary retention. His daughter reports that patient was admitted for UTI and urinary retention at the end of October and has had the noguera catheter since. Catheter was changed November 29 and he is currently being treated for a UTI. Report limited output since this morning. State output looks like old blood. Source: patient, family Exam Limitations: no limitations History of Present Illness Date Seen by Provider: Dec 10, 2021 Time Seen by Provider: 18:23 Initial Comments 71-year-old male with past medical history of CKD as well as urinary retention with a Noguera in place coming in due to concerns for worsening urinary retention. Noguera was originally placed in October due to prostate issues and retention. He was changed out November 29, and since the change out he has had numerous issues, particularly difficulty with getting good outflow. He noticed that it turned more bloody yesterday. He takes a baby aspirin daily but no blood thinners. He says it was rather traumatic when they placed that and he had some blood after they placed it intermittently. He has follow-up with a tobacco stemmer machine on Sunday and a urologist on Sunday. He is having some suprapubic discomfort and fullness in which he feels like his bladder is not emptying. Otherwise denying any fever, nausea, vomiting, diarrhea, weakness, numbness, or any other concerns. Of note, he states he is currently on an antibiotic for UTI. Allergies and Home Medications Allergies Coded Allergies: Penicillins (Unverified Allergy, Unknown, rash, 06/05/21) Kqakvma-LTS-QgH Reductase Inhibitor (Unverified Allergy, Unknown, LEG CRAMPS, 06/05/21) fish oil (Unverified Allergy, Unknown, PVC'S, 06/05/21) Patient Home Medication List Home Medication List Reviewed: Yes Aspirin (Aspirin EC) 81 Mg Tablet.dr, 81 MG PO DAILY, (Reported) Entered as Reported by: ALMA RUBY on 06/06/21 1353 Carvedilol (Carvedilol) 25 Mg Tablet, 25 MG PO BID, (Reported) Entered as Reported by: Tiffani Steele on 06/05/21 182 Docusate Sodium (Colace) 100 Mg Capsule, 100 MG PO DAILY PRN for CONSTIPATION- 1ST LINE, (Reported) Entered as Reported by: Tiffani Steele on 06/05/21 182 Esomeprazole Magnesium (Nexium) 40 Mg Cap, 40 MG PO DAILY, (Reported) Entered as Reported by: ALMA RUBY on 06/06/21 135 Fenofibrate Nanocrystallized (Fenofibrate) 145 Mg Tablet, 145 MG PO HS, (Re ported) Entered as Reported by: ALMA RUBY on 06/06/21 134 Finasteride (Finasteride) 5 Mg Tablet, 5 MG PO DAILY, (Reported) Entered as Reported by: Tiffani Steele on 06/05/21 182 Furosemide (Furosemide) 40 Mg Tablet, 80 MG PO DAILY, (Reported) Entered as Reported by: Tiffani Steele on 06/05/21 182 Furosemide (Lasix) 40 Mg Tablet, 40 MG PO HS, (Reported) Entered as Reported by: ALMA RUBY on 06/06/21 134 Hydrocodone Bit/Acetaminophen (HYDROcodone/APAP 7.5/325 TAB) 1 Ea Tablet, 1 EA PO Q6H PRN for PAIN-MODERATE (5-7), (Reported) Entered as Reported by: AMANDEEP GARCIA on 06/06/21 1105 Isosorbide Mononitrate (Isosorbide Mononitrate ER) 30 Mg Tab.er.24h, 60 MG PO DAILY, (Reported) Entered as Reported by: Tiffani Steele on 06/05/211825 Isosorbide Mononitrate (Isosorbide Mononitrate ER) 30 Mg Tab.er.24h, 30 MG PO HS, (Reported) Entered as Reported by: ALMA RUBY on 06/06/21 1340 Metolazone (Metolazone) 2.5 Mg Tablet, 2.5 MG PO DAILY, (Reported) Entered as Reported by: ALMA RUBY on 06/06/21 134 Nitroglycerin (Nitroglycerin) 0.4 Mg Tab.subl, 0.4 MG SL NEEDED, (Reported) Entered as Reported by: Tiffani Steele on 06/05/211825 Semaglutide (Ozempic) 0.25 Mg/0.2 Ml Pen.injctr, 0.5 MG SC SUNDAY, (Reported) Entered as Reported by: ALMA RUBY on 06/06/21 1349 Tamsulosin HCl (Flomax) 0.4 Mg Cap, 0.4 MG PO HS, (Reported) Entered as Reported by: Tiffani Steele on 06/05/21 1826 Review of Systems Review of Systems Constitutional: No fever EENTM: no symptoms reported Respiratory: no symptoms reported Cardiovascular: no symptoms reported Gastrointestinal: no symptoms reported Genitourinary: see HPI Musculoskeletal: no symptoms reported Skin: no symptoms reported Psychiatric/Neurological: No Symptoms Reported Endocrine: No Symptoms Reported Hematologic/Lymphatic: No Symptoms Reported All Other Systemes Reviewed Negative Unless Noted: Yes Past Mijegso-Ssctvm-Iridwo Hx Patient Social History Tobacco Use?: No Substance use?: No Alcohol Use?: Yes Pt feels they are or have been: No Immunizations Up To Date First/Initial COVID19 Vaccinat: APRIL 2020 Second COVID19 Vaccination Harvey: MAY 2020 Third COVID19 Vaccination Date: APRIL 2020 Seasonal Allergies Seasonal Allergies: Yes Past Medical History Surgeries: Yes (SPLENECTOMY, KIDNEY ABLATION, ) Adenoidectomy, Gallbladder, Tonsillectomy Respiratory: No Cardiac: Yes (PACEMAKER/DEFIB, STENTS) Hypertension Neurological: No Reproductive Disorders: No Genitourinary: Yes (KIDNEY CANCER) Gastrointestinal: Yes (SPLENECTOMY) Gall Bladder Disease Musculoskeletal: Yes Chronic Back Pain Endocrine: No HEENT: No Cancer: Yes Kidney Did You Recieve Any Treatments: Yes What Type of Treatment Did You: Surgical Intervention Psychosocial: Yes Anxiety Integumentary: No Blood Disorders: No Family Medical History Heart Disease, Cancer, Hypertension Physical Exam Vital Signs Vital Signs - First Documented 12/10/21 18:24 Temp 36.4 Pulse 76 Resp 20 B/P (MAP) 112/94 (100) Pulse Ox 95 O2 Delivery Room Air Capillary Refill : Less Than 3 Seconds Height, Weight, BMI Height: '" Weight: lbs. oz. kg; 47.05 BMI Method: General Appearance: WD/WN, no apparent distress HEENT: PERRL/EOMI, normal ENT inspection, pharynx normal Neck: non-tender, full range of motion, supple, normal inspection Cardiovascular: regular rate, rhythm, no edema, no murmur Respiratory: chest non-tender, normal breath sounds, no respiratory distress, no accessory muscle use Gastrointestinal: normal bowel sounds, soft, tenderness (Mild suprapubic discomfort and fullness) Male: other (Edema around his testicles and legs, Noguera catheter in place draining brown urine) Back: normal inspection, no CVA tenderness Extremities: normal range of motion, non-tender, no calf tenderness, pedal edema Neurologic/Psychiatric: no motor/sensory deficits, alert, normal mood/affect Skin: normal color, warm/dry Lymphatic: no adenopathy Progress/Results/Core Measures Suspected Sepsis SIRS Temperature: Pulse: 76 Respiratory Rate: 20 Blood Pressure 112 /94 Mean: 100 Results/Orders My Orders Orders - MINNA PARKS MD Fentanyl Inj (Sublimaze Injection) (12/10/21 19:08) Catheter(Urinary) Insert & Ass 03,15 (12/10/21 19:08) Lidocaine 2% (Urojet) (Xylocaine Urojet) (12/10/21 19:15) Vital Signs/I&O 12/10/21 18:24 Temp 36.4 Pulse 76 Resp 20 B/P (MAP) 112/94 (100) Pulse Ox 95 O2 Delivery Room Air Capillary Refill : Less Than 3 Seconds Blood Pressure Mean: 100 Progress Note : Progress Note 71-year-old male with above history coming in due to concerns that his Noguera catheter is not functioning properly as well as continued intermittent hematuria since the Noguera was replaced more than 10 days ago. ABCs were intact and vitals were stable on presentation. He does continue to have some drainage from his Noguera catheter but there does appear to be some bloody drainage. Kqpma-nl-pupq ultrasound obtained by me showing roughly 1 L of urine in his bladder with no obvious echogenic findings that would be concerning for clots. He does have a rather small Noguera in place, so it was replaced with with a slightly larger size with good urinary return and relief from his symptoms. He has good follow-up with his urologist and tobacco stemmer machine in just over 24 hours. I believe he is stable for discharge with outpatient follow-up. He was sent home with strict return precautions. I instructed him to hold his aspirin until he is told to restart by his doctors or until the urine becomes clear again. Departure Impression Primary Impression: Noguera catheter problem Qualified Codes: T83.9XXA - Unspecified complication of genitourinary prosthetic device, implant and graft, initial encounter Additional Impression: Hematuria Qualified Codes: R31.0 - Gross hematuria Disposition: HOME, SELF-CARE Condition: Stable Departure-Patient Inst. Decision time for Depature: 19:58 Referrals: STEWART DIANE MD (PCP) Primary Care Physician Patient Instructions: How to Care for Your Noguera Catheter, Male Add. Discharge Instructions: You may continue to have some blood in your urine due to the Noguera catheter being placed. Hold your aspirin until your urine is clear or until your doctor tells you to restart it. Continue to follow-up with your tobacco stemmer machine and neurologist as you stated. If a lot of urine starts coming out into the Noguera catheter rapidly, try to increase your fluid intake until this slows down. MINNA PARKS MD Dec 10, 2021 19:14
[2021-12-10] MEDS ORDERED: LIDOCAINE UROJET 2% GEL 10 ML PKG TOP ONE (19:15)
[2021-12-10 20:15] VITALS: BP 112/61
== END 2021-12-10 22:51 | disposition home or self-care (01) ==
LOC: EDUNIT# 18:21 → ER FS 18:22
DX: T83.091A Other mechanical complication of indwelling urethral catheter, initial encounter (principal); Z85.528 Personal history of other malignant neoplasm of kidney; Z79.82 Long term (current) use of aspirin
CPT/HCPCS: 51702

== ENCOUNTER 2021-12-12 05:48 | Emergency (ER) | payer MEDICARE, BC ==
--- NOTE | 2021-12-12 06:17 | ED GU-Female ---
General Chief Complaint: - Reproductive Stated Complaint: BENAVIDEZ PLUGGED Source: patient Exam Limitations: no limitations History of Present Illness Date Seen by Provider: Dec 12, 2021 Time Seen by Provider: 06:00 Initial Comments Patient had Benavidez catheter placed 1 month ago and was evaluated in the emergency department for an occluded Benavidez catheter, which was occluded. Patient pain came concerned that he had decreased urinary output this morning and contacted his daughter who flushed his catheter. She was unable to achieve significant urinary output and came to the emergency department for reevaluation. Patient denies any symptoms. On arrival to ED, the patient's urinary output is normal. No other acute symptoms or complaints. Patient has a follow-up appointment with his management advisor this afternoon. Timing/Duration: other Severity/Quality: other Location: urethral Radiation: other Activities at Onset: other Sexual [place] History: other Modifying Factors: Improves With Other Allergies and Home Medications Allergies Coded Allergies: Penicillins (Unverified Allergy, Unknown, rash, 06/05/21) Lnvnwzq-TAC-VdC Reductase Inhibitor (Unverified Allergy, Unknown, LEG CRAMPS, 06/05/21) fish oil (Unverified Allergy, Unknown, PVC'S, 06/05/21) Patient Home Medication List Home Medication List Reviewed: Yes Aspirin (Aspirin EC) 81 Mg Tablet.dr, 81 MG PO DAILY, (Reported) Entered as Reported by: ALMA RUBY on 06/06/21 135 Carvedilol (Carvedilol) 25 Mg Tablet, 25 MG PO BID, (Reported) Entered as Reported by: Tiffani Steele on 06/05/21 182 Docusate Sodium (Colace) 100 Mg Capsule, 100 MG PO DAILY PRN for CONSTIPATION- 1ST LINE, (Reported) Entered as Reported by: Tiffani Steele on 06/05/21 182 Esomeprazole Magnesium (Nexium) 40 Mg Cap, 40 MG PO DAILY, (Reported) Entered as Reported by: ALMA RUBY on 06/06/21 135 Fenofibrate Nanocrystallized (Fenofibrate) 145 Mg Tablet, 145 MG PO HS, (Reported) Entered as Reported by: ALMA RUBY on 06/06/21 1344 Finasteride (Finasteride) 5 Mg Tablet, 5 MG PO DAILY, (Reported) Entered as Reported by: Tiffani Steele on 06/05/211825 Furosemide (Furosemide) 40 Mg Tablet, 80 MG PO DAILY, (Reported) Entered as Reported by: Tiffani Steele on 06/05/211825 Furosemide (Lasix) 40 Mg Tablet, 40 MG PO HS, (Reported) Entered as Reported by: ALMA RUBY on 06/06/21 134 Hydrocodone Bit/Acetaminophen (HYDROcodone/APAP 7.5/325 TAB) 1 Ea Tablet, 1 EA PO Q6H PRN for PAIN-MODERATE (5-7), (Reported) Entered as Reported by: AMANDEEP GARCIA on 06/06/21 1105 Isosorbide Mononitrate (Isosorbide Mononitrate ER) 30 Mg Tab.er.24h, 60 MG PO DAILY, (Reported) Entered as Reported by: Tiffani Steele on 06/05/211825 Isosorbide Mononitrate (Isosorbide Mononitrate ER) 30 Mg Tab.er.24h, 30 MG PO HS, (Reported) Entered as Reported by: ALMA RUBY on 06/06/21 134 Metolazone (Metolazone) 2.5 Mg Tablet, 2.5 MG PO DAILY, (Reported) Entered as Reported by: ALMA RUBY on 06/06/21 134 Nitroglycerin (Nitroglycerin) 0.4 Mg Tab.subl, 0.4 MG SL NEEDED, (Reported) Entered as Reported by: Tiffani Steele on 06/05/211825 Semaglutide (Ozempic) 0.25 Mg/0.2 Ml Pen.injctr, 0.5 MG SC SUNDAY, (Reported) Entered as Reported by: ALMA RUBY on 06/06/21 134 Tamsulosin HCl (Flomax) 0.4 Mg Cap, 0.4 MG PO HS, (Reported) Entered as Reported by: Tiffani Steele on 06/05/211825 Review of Systems Review of Systems Constitutional: see HPI EENTM: see HPI Respiratory: see HPI Cardiovascular: see HPI Gastrointestinal: see HPI Genitourinary: see HPI Musculoskeletal: see HPI Skin: see HPI Psychiatric/Neurological: See HPI Endocrine: See HPI Hematologic/Lymphatic: See HPI All Other Systemes Reviewed Negative Unless Noted: Yes Past Tcqmiia-Nicgaw-Rvkfuo Hx Patient Social History Tobacco Use?: No Immunizations Up To Date First/Initial COVID19 Vaccinat: APRIL 2020 Second COVID19 Vaccination Harvey: MAY 2020 Third COVID19 Vaccination Date: APRIL 2020 Seasonal Allergies Seasonal Allergies: Yes Past Medical History Surgeries: Yes (SPLENECTOMY, KIDNEY ABLATION, ) Adenoidectomy, Gallbladder, Tonsillectomy Respiratory: No Cardiac: Yes (PACEMAKER/DEFIB, STENTS) Hypertension Neurological: No Reproductive Disorders: No Genitourinary: Yes (KIDNEY CANCER) Gastrointestinal: Yes (SPLENECTOMY) Gall Bladder Disease Musculoskeletal: Yes Chronic Back Pain Endocrine: No HEENT: No Cancer: Yes Kidney Did You Recieve Any Treatments: Yes What Type of Treatment Did You: Surgical Intervention Psychosocial: Yes Anxiety Integumentary: No Blood Disorders: No Family Medical History Heart Disease, Cancer, Hypertension Physical Exam Vital Signs Capillary Refill : Height, Weight, BMI Height: '" Weight: lbs. oz. kg; 47.05 BMI Method: General Appearance: no apparent distress HEENT: PERRL/EOMI, normal ENT inspection Neck: full range of motion Cardiovascular: regular rate, rhythm Respiratory: lungs clear Gastrointestinal: non tender, soft Genital/Rectal: other (Benavidez catheter in place with pinkish tinged fluid and active output) Progress/Results/Core Measures Suspected Sepsis SIRS Temperature: Pulse: Respiratory Rate: Blood Pressure / Mean: Results/Orders Vital Signs/I&O Capillary Refill : Departure Communication (Admissions) Patient was feared concern not found to be evident on exam. As well a catheter appears to be functioning. Will defer further evaluation to his management advisor this afternoon. Impression Primary Impression: Encounter for medical screening examination Disposition: HOME, SELF-CARE Condition: Stable Departure-Patient Inst. Decision time for Depature: 06:16 Referrals: STEWART DIANE MD (PCP/Family) Primary Care Physician Add. Discharge Instructions: You were evaluated in the emergency department for possible Benavidez catheter obstruction. This was not found to be evident during the ED visit. Please follow-up with your management advisor as scheduled for further evaluation and management of kidney disease. All discharge instructions reviewed with patient and/or family. Voiced understanding. LITTLE SWEET DO Dec 12, 2021 06:17
[2021-12-12 06:25] VITALS: BP 138/92
== END 2021-12-12 06:25 | disposition home or self-care (01) ==
LOC: EDUNIT# 05:48 → ER FS 05:51
DX: Z00.00 Encounter for general adult medical examination without abnormal findings (principal)
CPT/HCPCS: 99282

== ENCOUNTER 2021-12-28 09:34 | Emergency (ER) | payer MEDICARE, BC ==
[~2021-12-28] VITALS: Ht 175.2 cm; Wt 135.5 kg
[2021-12-28 09:37] VITALS: BP 117/64
[2021-12-28] MEDS ORDERED: ACETAMINOPHEN 500 MG TAB (TYLENOL) PO ONE (10:00)
[2021-12-28 10:17] LABS: BILIRUBIN,URINE NEGATIVE (NEGATIVE); CLARITY,URINE CLOUDY; COLOR,URINE YELLOW; GLUCOSE, URINE (UA) NEGATIVE (NEGATIVE); KETONES,URINE NEGATIVE (NEGATIVE); LEUKOCYTE ESTERASE ,URINE 1+ (NEGATIVE); NITRITE,URINE NEGATIVE (NEGATIVE); PH,URINE 5.5 (5-9); PROTEIN,URINE NEGATIVE (NEGATIVE)
[2021-12-28 10:19] LABS: BASOPHILS % (AUTO) 1 % (0-10); EOSINOPHILS % (AUTO) 1 % (0-10); HEMATOCRIT 28 % (40-54); HEMOGLOBIN 9.6 g/dL (13.3-17.7); LYMPHOCYTES # (AUTO) 2.1 10^3/uL (1.0-4.0); LYMPHOCYTES % (AUTO) 13 % (12-44); MEAN CORPUSCULAR HEMOGLOBIN 31 pg (25-34); MEAN CORPUSCULAR HGB CONC 34 g/dL (32-36); MEAN CORPUSCULAR VOLUME 92 fL (80-99); MEAN PLATELET VOLUME 11.8 fL (9.0-12.2); MONOCYTES # (AUTO) 1.4 10^3/uL (0.0-1.0); MONOCYTES % (AUTO) 9 % (0-12); NEUTROPHILS # (AUTO) 11.6 10^3/uL (1.8-7.8); NEUTROPHILS % (AUTO) 75 % (42-75); PLATELET COUNT 207 10^3/uL (130-400); WHITE BLOOD COUNT 15.4 10^3/uL (4.3-11.0)
[2021-12-28 10:20] LABS: BASOPHILS # (AUTO) 0.1 10^3/uL (0.0-0.1); EOSINOPHILS # (AUTO) 0.1 10^3/uL (0.0-0.3)
--- NOTE | 2021-12-28 10:21 | ED General ---
General Chief Complaint: Fever-Adult/Adol Stated Complaint: FEVER; AMS Source of Information: Patient, Caregiver (patient's daughter) Exam Limitations: No Limitations (DAXA AZEVEDO) History of Present Illness Date Seen by Provider: Dec 28, 2021 Time Seen by Provider: 10:00 Initial Comments This 71 year old male presents with his daughter with altered mental status and fever. The patient's daughter is the primary historian and gives the following report. Patient began exhibiting symptoms late last night/early this morning. Patient started appearing more uncomfortable/irritable and grunting in pain. Patient felt warm to the touch but his temperature was not recorded at home prior to arriving to the ED. Patient has a PMHx significant for heart failure, renal failure, and recurrent UTIs. Patient has an indwelling catheter; patient has used an indwelling catheter since October. Patient's daughter states his catheter has been changed a few times since initial placement but does not remember when the most recent replacement was. She states it was during the patient's last ED visit. Patient has bilateral lower extremity edema that is baseline for him. Patient's daughter recently noticed increased erythema and skin changes of the left lower leg that has spread to involve the left medial thigh. Patient denies chest pain, SOA, abdominal pain, N/V, or new onset pain. The patient had a dose of hydrocodone-acetaminophen this morning but has not taken additional tylenol. Timing/Duration: 12 Hours Severity: Moderate Modifying Factors: improves with Medication (pain medication with minimal relief) Associated Systoms: No Chest Pain, No Cough; Fever/Chills, Malaise; No Nausea/Vomiting, No Shortness of Air; Weakness (DAXA AZEVEDO) Initial Comments Daughter reports patient has not taken his regular morning medications today. He had COVID 19 this past summer. His primary care provider is Dr. Murillo. His specialty care is provided by [facility]. He attends cardiac rehab for his heart failure and sees nephrology as well. (ECTOR MARTÍNEZ MD) Allergies and Home Medications Allergies Coded Allergies: Penicillins (Unverified Allergy, Unknown, rash, 06/05/21) Boupugw-RYJ-IpJ Reductase Inhibitor (Unverified Allergy, Unknown, LEG CRAMPS, 06/05/21) fish oil (Unverified Allergy, Unknown, PVC'S, 06/05/21) Patient Home Medication List Home Medication List Reviewed: Yes (DAXA AZEVEDO) Aspirin (Aspirin EC) 81 Mg Tablet.dr, 81 MG PO DAILY, (Reported) Entered as Reported by: ALMA RUBY on 06/06/21 135 Carvedilol (Carvedilol) 25 Mg Tablet, 25 MG PO BID, (Reported) Entered as Reported by: Tiffani Steele on 06/05/21 182 Docusate Sodium (Colace) 100 Mg Capsule, 100 MG PO DAILY PRN for CONSTIPATION- 1ST LINE, (Reported) Entered as Reported by: Tiffani Steele on 06/05/21 182 Esomeprazole Magnesium (Nexium) 40 Mg Cap, 40 MG PO DAILY, (Reported) Entered as Reported by: ALMA RUBY on 06/06/21 135 Fenofibrate Nanocrystallized (Fenofibrate) 145 Mg Tablet, 145 MG PO HS, (Reported) Entered as Reported by: ALMA RUBY on 06/06/21 134 Finasteride (Finasteride) 5 Mg Tablet, 5 MG PO DAILY, (Reported) Entered as Reported by: Tiffani Steele on 06/05/21 182 Furosemide (Furosemide) 40 Mg Tablet, 80 MG PO DAILY, (Reported) Entered as Reported by: Tiffani Steele on 06/05/211825 Furosemide (Lasix) 40 Mg Tablet, 40 MG PO HS, (Reported) Entered as Reported by: ALMA RUBY on 06/06/21 134 Hydrocodone Bit/Acetaminophen (HYDROcodone/APAP 7.5/325 TAB) 1 Ea Tablet, 1 EA PO Q6H PRN for PAIN-MODERATE (5-7), (Reported) Entered as Reported by: AMANDEEP GARCIA on 06/06/21 1105 Isosorbide Mononitrate (Isosorbide Mononitrate ER) 30 Mg Tab.er.24h, 60 MG PO DAILY, (Reported) Entered as Reported by: Tiffani Steele on 06/05/21 182 Isosorbide Mononitrate (Isosorbide Mononitrate ER) 30 Mg Tab.er.24h, 30 MG PO HS, (Reported) Entered as Reported by: ALMA RUBY on 06/06/21 134 Metolazone (Metolazone) 2.5 Mg Tablet, 2.5 MG PO DAILY, (Reported) Entered as Reported by: ALMA RUBY on 06/06/21 134 Nitroglycerin (Nitroglycerin) 0.4 Mg Tab.subl, 0.4 MG SL NEEDED, (Reported) Entered as Reported by: Tiffani Steele on 06/05/211825 Semaglutide (Ozempic) 0.25 Mg/0.2 Ml Pen.injctr, 0.5 MG SC SUNDAY, (Reported) Entered as Reported by: ALMA RUBY on 06/06/21 134 Tamsulosin HCl (Flomax) 0.4 Mg Cap, 0.4 MG PO HS, (Reported) Entered as Reported by: Tiffani Steele on 06/05/211825 Review of Systems Review of Systems Constitutional: fever, malaise, weakness EENTM: see HPI Respiratory: no symptoms reported Cardiovascular: edema (bilateral lower extremity edema) Gastrointestinal: no symptoms reported Genitourinary: no symptoms reported (patient has indwelling catheter) Musculoskeletal: no symptoms reported Skin: other (bilateral lower extremity edema and erythema, more prominent on the left) Psychiatric/Neurological: Other (altered mental status, more irritable, grunting in pain) Hematologic/Lymphatic: No Symptoms Reported Immunological/Allergic: no symptoms reported (DAXA AZEVEDO) All Other Systems Reviewed Negative Unless Noted: Yes (DAXA AZEVEDO) Past Zuxxahu-Shfkla-Yusvsl Hx Patient Social History Tobacco Use?: No Substance use?: No Alcohol Use?: Yes Alcohol type: Beer Alcohol Frequency: Once in a while (DAXA AZEVEDO) Immunizations Up To Date First/Initial COVID19 Vaccinat: APRIL 2020 Second COVID19 Vaccination Harvey: MAY 2020 Third COVID19 Vaccination Date: APRIL 2020 (DAXA AZEVEDO) Seasonal Allergies Seasonal Allergies: Yes (DAXA AZEVEDO) Past Medical History Surgery/Hospitalization HX: Urunary obstruction hx with UTI, CKD, CHF Surgeries: Yes (SPLENECTOMY, KIDNEY ABLATION, ) Adenoidectomy, Gallbladder, Tonsillectomy Respiratory: No Cardiac: Yes (PACEMAKER/DEFIB, STENTS) Hypertension Neurological: No Reproductive Disorders: No Genitourinary: Yes (KIDNEY CANCER) Gastrointestinal: Yes (SPLENECTOMY) Gall Bladder Disease Musculoskeletal: Yes Chronic Back Pain Endocrine: No HEENT: No Cancer: Yes Kidney Did You Recieve Any Treatments: Yes What Type of Treatment Did You: Surgical Intervention Psychosocial: Yes Anxiety Integumentary: No Blood Disorders: No (DAXA AZEVEDO) Family Medical History Heart Disease, Cancer, Hypertension (DAXA AZEVEDO) Physical Exam-Suspected Sepsis Physical Exam Vital Signs Vital Signs - First Documented 12/28/21 09:37 Temp 38.5 Pulse 100 Resp 18 B/P (MAP) 117/64 (81) Pulse Ox 93 O2 Delivery Room Air (ECTOR MARTÍNEZ MD) Vital Signs Capillary Refill : (DAXA AZEVEDO) Height, Weight, BMI Height: '" Weight: lbs. oz. kg; BMI Method: General Appearance: Chronically ill, Moderate Distress (patient is visibly uncomfortable and is softly grunting in pain. Patient is conversational and will respond to questions) Eyes: Bilateral Eye Normal Inspection, Bilateral Eye EOMI Respiratory: Lungs Clear, Normal Breath Sounds Cardiovascular: Diastolic Murmur, Systolic Murmur Gastrointestinal: Normal Bowel Sounds, Non Tender, Soft Genital/Rectal: Other (indwelling catheter in place. Urine is light yellow and clear) Extremity: Swelling (severe edema of bilateral lower extremities; left lower extremity swelling slightly larger than the right ), Other (Left lower extremity: erythema and induration of the patient's lower leg extending to the medial thigh) Neurologic/Psychiatric: Alert, Other (altered mental status) Skin: warm/dry, other (Left lower extremity: erythema and induration of the patient's lower leg extending to the medial thigh) Lymphatic: No Adenopathy Comments This exam was performed by Dr. Martínez and dictated to me (DAXA AZEVEDO) HEENT: Other (Oropharynx dry) Neck: No JVD Cardiovascular: Regular Rate, Rhythm (ECTOR MARTÍNEZ MD) Focused Exam Lactate Level 12/28/21 09:59: Lactic Acid Level 1.17 (ECTOR MARTÍNEZ MD) Lactic Acid Level (ECTOR MARTÍNEZ MD) Progress/Results/Core Measures Suspected Sepsis SIRS Temperature: Pulse: Respiratory Rate: Laboratory Tests 12/28/21 09:59: White Blood Count 15.4H Blood Pressure / Mean: 10/19/22 09:59: Lactic Acid Level 1.17 Laboratory Tests 12/28/21 09:59: Creatinine 2.45H, INR Comment 1.4, Platelet Count 207, Total Bilirubin 1.2H (DAXA AZEVEDO) Results/Orders Lab Results Laboratory Tests Test 12/28/21 09:59 12/28/21 10:07 Range/Units White Blood Count 15.4 H 4.3-11.0 10^3/uL Red Blood Count 3.07 L 4.30-5.52 10^6/uL Hemoglobin 9.6 L 13.3-17.7 g/dL Hematocrit 28 L 40-54 % Mean Corpuscular Volume 92 80-99 fL Mean Corpuscular Hemoglobin 31 25-34 pg Mean Corpuscular Hemoglobin Concent 34 32-36 g/dL Red Cell Distribution Width 16.2 H 10.0-14.5 % Platelet Count 207 130-400 10^3/uL Mean Platelet Volume 11.8 9.0-12.2 fL Immature Granulocyte % (Auto) 1 % Neutrophils (%) (Auto) 75 42-75 % Lymphocytes (%) (Auto) 13 12-44 % Monocytes (%) (Auto) 9 0-12 % Eosinophils (%) (Auto) 1 0-10 % Basophils (%) (Auto) 1 0-10 % Neutrophils # (Auto) 11.6 H 1.8-7.8 10^3/uL Lymphocytes # (Auto) 2.1 1.0-4.0 10^3/uL Monocytes # (Auto) 1.4 H 0.0-1.0 10^3/uL Eosinophils # (Auto) 0.1 0.0-0.3 10^3/uL Basophils # (Auto) 0.1 0.0-0.1 10^3/uL Immature Granulocyte # (Auto) 0.1 0.0-0.1 10^3/uL Neutrophils % (Manual) 74 % Lymphocytes % (Manual) 18 % Monocytes % (Manual) 6 % Eosinophils % (Manual) 2 % Basophils % (Manual) 0 % Band Neutrophils 0 % Prothrombin Time 17.8 H 12.2-14.7 SEC INR Comment 1.4 0.8-1.4 Activated Partial Thromboplast Time 39 H 24-35 SEC Sodium Level 136 135-145 MMOL/L Potassium Level 3.7 3.6-5.0 MMOL/L Chloride Level 95 L 98-107 MMOL/L Carbon Dioxide Level 25 21-32 MMOL/L Anion Gap 16 H 5-14 MMOL/L Blood Urea Nitrogen 72 H 7-18 MG/DL Creatinine 2.45 H 0.60-1.30 MG/DL Estimat Glomerular Filtration Rate 28 BUN/Creatinine Ratio 29 Glucose Level 117 H 70-105 MG/DL Lactic Acid Level 1.17 0.50-2.00 MMOL/L Calcium Level 9.6 8.5-10.1 MG/DL Corrected Calcium 9.8 8.5-10.1 MG/DL Total Bilirubin 1.2 H 0.1-1.0 MG/DL Aspartate Amino Transf (AST/SGOT) 24 5-34 U/L Alanine Aminotransferase (ALT/SGPT) 7 0-55 U/L Alkaline Phosphatase 115 40-136 U/L C-Reactive Protein 2.87 H <0.50 MG/DL Pro-B-Type Natriuretic Peptide 8004.0 H <125.0 PG/ML Total Protein 8.1 6.4-8.2 GM/DL Albumin 3.7 3.2-4.5 GM/DL Urine Color YELLOW Urine Clarity CLOUDY Urine pH 5.5 5-9 Urine Specific Rose 1.010 L 1.016-1.022 Urine Protein NEGATIVE NEGATIVE Urine Glucose (UA) NEGATIVE NEGATIVE Urine Ketones NEGATIVE NEGATIVE Urine Nitrite NEGATIVE NEGATIVE Urine Bilirubin NEGATIVE NEGATIVE Urine Urobilinogen 0.2 < = 1.0 MG/DL Urine Leukocyte Esterase 1+ H NEGATIVE Urine RBC (Auto) TRACE-I H NEGATIVE Urine RBC NONE /HPF Urine WBC 10-25 H /HPF Urine Squamous Epithelial Cells NONE /HPF Urine Crystals NONE /LPF Urine Bacteria LARGE H /HPF Urine Casts NONE /LPF Urine Mucus NEGATIVE /LPF Urine Culture Indicated NO (ECTOR MARTÍNEZ MD) Micro Results Microbiology 12/28/21 Blood Culture - Preliminary, Resulted No growth 12/28/21 Urine Culture - Preliminary, Resulted Strep Species, Gamma-Hemolytic Gram Negative Delroy 12/28/21 Blood Culture - Preliminary, Resulted No growth (ECTOR MARTÍNEZ MD) My Orders Orders - ECTOR MARTÍNEZ MD Acetaminophen Tablet (Tylenol Tablet) (12/28/21 10:00) Cbc With Automated Diff (12/28/21 09:53) Comprehensive Metabolic Panel (12/28/21 09:53) Blood Culture (12/28/21 09:53) Urinalysis (12/28/21:53) Urine Culture (12/28/21:53) Protime With Inr (12/28/21:53) Partial Thromboplastin Time (12/28/21 09:53) Chest 1 View Ap/Pa Only (12/28/21 09:53) Ed Iv/Invasive Line Start (12/28/21 09:53) Vital Signs Adult Sepsis Patie Q15M (12/28/21 09:53) O2 (12/28/21:53) Remove Rings In Anticipation O (12/28/21:53) Lactic Acid Analyzer (12/28/21:53) Probnp Fs (12/28/21:53) Crp Fs (12/28/21 09:53) Manual Differential (12/28/21 09:59) Cefepime Injection (Maxipime Injection) (12/28/21 11:15) Us Venous Lower Ext Lt (12/28/21 11:25) Ns Iv 500 Ml (Sodium Chloride 0.9%) (12/28/21 13:15) (ECTOR MARTÍNEZ MD) Medications Given in ED (ECTOR MARTÍNEZ MD) Vital Signs/I&O (ECTOR MARTÍNEZ MD) Vital Signs/I&O Capillary Refill : (DAXA AZEVEDO) Progress Note #1: Time: 11:32 Progress Note Patient presented with signs of sepsis with fever and mild tachycardia. With skin changes to his left lower extremity and history of urinary tract infections, bacterial infection was suspected. Work-up revealed leukocytosis and pyuria. Antibiotic therapy with cefepime will be given after blood cultures. Patient exhibits signs of heart failure with a BNP of 8000 and congestion noted on chest x-ray. He is not in any respiratory distress or respiratory failure at this time. Blood pressures are marginal with systolic blood pressures in the 100-110 range at this time. Patient has not yet taken his Lasix today, but we will hold Lasix at this time due to these marginal blood pressures in the context of sepsis. Patient and his daughter report that this is a typical blood pressure for him. Fever was treated with Tylenol 500 mg. He took hydrocodone 5/325 a few hours before coming to the emergency room. Due to the disproportionately unilateral change in edema and induration of the left leg, venous Doppler of the left leg is being obtained. Admission is warranted for treatment of sepsis and further monitoring of his heart failure, renal failure, blood pressure, etc. Patient receives his specialty care at [facility] in [place] including maintenance for his heart failure and renal failure. For this reason, it is important for him to be transferred to [facility] if at all possible rather than [place] or another closer facility. [place] is the nearest location that can provide nephrology services. Continuity of care is also important for this patient necessitating transfer to [facility] in [place] if at all possible. Call has been placed to [facility], and we are awaiting callback. Progress Note #2: Time: 13:20 Progress Note We received acceptance from [facility] but are awaiting bed assignment. Patient has had multiple systolic blood pressures in the 90s. We are administering normal saline 500 mL at 150/h will increase the rate if needed. (ECTOR MARTÍNEZ MD) Diagnostic Imaging Diagonstic Imaging: Xray Plain Films/CT/US/NM/MRI: chest Comments NAME: VALENTINO PRESTON [facility] REC#: [id number] PT STATUS: REG ER : 1950 PHYSICIAN: ECTOR MARTÍNEZ MD ADMIT DATE: 12/28/21/ER FS Draft Date of Exam:12/28/21 CHEST 1 VIEW AP/PA ONLY Indication: Fever. Time of Exam: 10:09 AM Correlation is made with prior chest from 10/10/2020. The heart is enlarged but stable. Cardiac defibrillator remains in place. There is some mild central congestion but no overt failure. No infiltrates are seen. There is no effusion or pneumothorax. IMPRESSION: Cardiomegaly and mild central congestion. Dictated on workstation # [id number] Dict: 12/28/21 1016 Trans: 12/28/21 1019 VISHAL [id number] Interpreted by: MELYSSA MCRAE MD Electronically signed by: (DAXA AZEVEDO) Comments Chest x-ray viewed by me and report reviewed. Diagonstic Imaging: Ultrasound Plain Films/CT/US/NM/MRI: leg Comments Left lower extremity Doppler discussed with dental laboratory technician apprentice. No acute DVT was identified. (ECTOR MARTÍNEZ MD) Departure Impression Primary Impression: Sepsis Qualified Codes: A41.9 - Sepsis, unspecified organism Additional Impressions: Urinary tract infection Qualified Codes: N39.0 - Urinary tract infection, site not specified Cellulitis of left leg Chronic kidney disease Qualified Codes: N18.9 - Chronic kidney disease, unspecified Chronic congestive heart failure Qualified Codes: I50.9 - Heart failure, unspecified Disposition: HOME, SELF-CARE Condition: Improved (ERASED) Transfer Transfer Reason: Exceeds level of care Time Spoke to Accepting Phy: 11:45 Transfer Progress Notes Physician report was given to the PA for Dr. Olguin. Transfer was accepted to [facility]. Transfer Time: 16:32 Transfer Facility: [facility] Method of Transfer: EMS (ECTOR MARTÍNEZ MD) Departure-Patient Inst. Referrals: STEWART MURILLO MD (PCP) Primary Care Physician Medical Student Attestation and Attending Note: I have personally interviewed and examined this patient along with Breanne Azevedo, MS 4. I have reviewed student documentation including history, physical, and assessments. I agree with the documentation except where otherwise noted. Exam as dictated to MS4 above. (ECTOR MARTÍNEZ MD) DAXA AZEVEDO Dec 28, 2021 10:21 ECTOR MARTÍNEZ MD Dec 28, 2021 11:38
[2021-12-28 10:28] LABS: BACTERIA,URINE LARGE /HPF
[2021-12-28 10:51] LABS: BAND NEUTROPHILS 0 %; BASOPHILS % (MANUAL) 0 %; EOSINOPHILS % (MANUAL) 2 %; INR 1.4 (0.8-1.4); LYMPHOCYTES % (MANUAL) 18 %; MONOCYTES % (MANUAL) 6 %; NEUTROPHILS % (MANUAL) 74 %; PROTHROMBIN TIME PATIENT 17.8 SEC (12.2-14.7)
[2021-12-28 10:58] LABS: BILIRUBIN,TOTAL 1.2 MG/DL (0.1-1.0); CALCIUM 9.6 MG/DL (8.5-10.1); CREATININE SERUM 2.45 MG/DL (0.60-1.30); POTASSIUM 3.7 MMOL/L (3.6-5.0)
[2021-12-28 10:59] LABS: ALBUMIN 3.7 GM/DL (3.2-4.5); TOTAL PROTEIN 8.1 GM/DL (6.4-8.2)
[2021-12-28] MEDS ORDERED: CEFEPIME INJECTION 2,000 MG in NS (IVPB) 50 ML IV ONE (11:15)
--- NOTE | 2021-12-28 12:27 | Diagnostic Imaging Report ---
PROCEDURE: US left lower extremity venous. TECHNIQUE: Multiple real-time grayscale images were obtained over the left lower extremity in various projections. Additional duplex Doppler and color Doppler images were also obtained. INDICATION: Left lower extremity edema. COMPARISON: 06/06/2021 FINDINGS: The left common femoral, femoral and popliteal veins are patent by color doppler imaging and without DVT. Visualized proximal aspects of the greater saphenous, deep femoral, posterior tibial and peroneal veins are also patent. All of the evaluated deep venous structures demonstrate normal compressibility and waveform augmentation where applicable. Incidental note is made of a 3.4 x 4.0 x 1.2 cm Erickson's cyst. IMPRESSION: No left lower extremity deep venous thrombosis (DVT). Dictated by: Dictated on workstation # [id number]
[2021-12-28] MEDS ORDERED: NS IV 500 ML 500 ML IV ONE (13:15)
== END 2021-12-28 16:32 | disposition home or self-care (01) ==
LOC: EDUNIT# 09:34 → ER FS 09:36
DX: A41.9 Sepsis, unspecified organism (principal); N39.0 Urinary tract infection, site not specified; L03.116 Cellulitis of left lower limb; I50.9 Heart failure, unspecified; N18.9 Chronic kidney disease, unspecified; Z96.0 Presence of urogenital implants; Z95.5 Presence of coronary angioplasty implant and graft; Z95.0 Presence of cardiac pacemaker; Z85.528 Personal history of other malignant neoplasm of kidney; Z98.890 Other specified postprocedural states; Z28.310 Unvaccinated for COVID-19
CPT/HCPCS: 36415; 71045; 80053; 81000; 83605; 83880; 85007; 85027; 85610; 85730; 86141; 87040; 87077; 87088; 87186

== ENCOUNTER 2022-06-28 10:44 | Outpatient (RCR) | payer MEDICARE, BC ==
[2022-06-13 11:00] VITALS: BP 103/69
[2022-06-15 11:28] VITALS: BP 117/71
[2022-06-15] MEDS: IRON SUCROSE INJECTION 200 MG in NS (IVPB) 100 ML IV SCH (11:31)
[2022-06-15 12:21] VITALS: BP 117/71
[2022-06-20 10:50] VITALS: BP 111/70
[2022-06-20] MEDS: IRON SUCROSE INJECTION 200 MG in NS (IVPB) 100 ML IV SCH (10:54)
[2022-06-22] MEDS: IRON SUCROSE INJECTION 200 MG in NS (IVPB) 100 ML IV SCH (11:19)
[2022-06-22 11:30] VITALS: BP 112/55
[~2022-06-28 10:44] MED LIST changes: +ACETAMINOPHEN 500 MG TAB (TYLENOL) PO PRN; -GABA300S2 PO; +GABA300S3 PO; +IRON SUCROSE INJECTION 200 MG in NS (IVPB) 100 ML IV SCH; +diphenhydrAMINE 50 MG/ML INJ (BENADRYL) IVP PRN
[2022-06-28 10:57] VITALS: BP 104/57
[2022-06-28] MEDS ORDERED: IRON SUCROSE INJECTION 200 MG in NS (IVPB) 100 ML IV ONE (11:15)
== END 2022-07-09 | disposition home or self-care (01) ==
LOC: SDC 10:44
PROVIDERS: ATTEND Internal Medicine Nephrology
DX: D50.8 Other iron deficiency anemias (principal)
CPT/HCPCS: 96365

== ENCOUNTER 2022-10-25 13:23 | Emergency (ER) | payer MEDICARE, BC ==
[~2022-10-25] VITALS: Ht 175 cm; Wt 138.0 kg
[~2022-10-25 13:23] MED LIST changes: -ACETAMINOPHEN 500 MG TAB (TYLENOL) PO PRN; -IRON SUCROSE INJECTION 200 MG in NS (IVPB) 100 ML IV SCH; -diphenhydrAMINE 50 MG/ML INJ (BENADRYL) IVP PRN
[2022-10-25 14:08] LABS: BILIRUBIN,URINE NEGATIVE (NEGATIVE); CLARITY,URINE CLEAR; COLOR,URINE YELLOW; GLUCOSE, URINE (UA) NEGATIVE (NEGATIVE); KETONES,URINE NEGATIVE (NEGATIVE); LEUKOCYTE ESTERASE ,URINE 3+ (NEGATIVE); NITRITE,URINE NEGATIVE (NEGATIVE); PROTEIN,URINE TRACE (NEGATIVE)
[2022-10-25 14:17] LABS: EOSINOPHILS % (AUTO) 2 % (0-10); HEMATOCRIT 32 % (40-54); HEMOGLOBIN 10.7 g/dL (13.3-17.7); LYMPHOCYTES % (AUTO) 22 % (12-44); MEAN CORPUSCULAR HEMOGLOBIN 31 pg (25-34); MEAN CORPUSCULAR HGB CONC 34 g/dL (32-36); MEAN CORPUSCULAR VOLUME 93 fL (80-99); MEAN PLATELET VOLUME 13.1 fL (9.0-12.2); MONOCYTES % (AUTO) 12 % (0-12); NEUTROPHILS % (AUTO) 62 % (42-75); PLATELET COUNT 153 10^3/uL (130-400); WHITE BLOOD COUNT 6.4 10^3/uL (4.3-11.0)
[2022-10-25 14:18] LABS: BASOPHILS # (AUTO) 0.1 10^3/uL (0.0-0.1); BASOPHILS % (AUTO) 1 % (0-10); EOSINOPHILS # (AUTO) 0.1 10^3/uL (0.0-0.3); LYMPHOCYTES # (AUTO) 1.4 X 10^3 (1.0-4.0); MONOCYTES # (AUTO) 0.8 X 10^3 (0.0-1.0)
[2022-10-25 14:20] LABS: BACTERIA,URINE LARGE /HPF; SQUAMOUS EPITHELIAL CELL,UR 0-2 /HPF; WBC,URINE >100 /HPF
--- NOTE | 2022-10-25 14:23 | Diagnostic Imaging Report ---
Indication: Urinary tract infection, abdominal bloating as well as the lower extremity swelling. Time of Exam: 2:07 PM Correlation is made with prior chest 12/28/2021. Heart is enlarged but stable. Cardiac defibrillator remains in place. Lungs are clear. There is no infiltrate or failure. No effusion or pneumothorax is detected. Central vascularity is slightly prominent. Impression: Cardiomegaly with continued mild central congestion. No overt failure is detected. Dictated by: Dictated on workstation # [id number]
[2022-10-25 14:34] LABS: CREATININE SERUM 4.4 MG/DL (0.60-1.30); POTASSIUM 4.5 MMOL/L (3.6-5.0)
[2022-10-25 14:35] LABS: ALBUMIN 3.5 GM/DL (3.2-4.5); BILIRUBIN,TOTAL 1.5 MG/DL (0.1-1.0); CALCIUM 9.4 MG/DL (8.5-10.1)
--- NOTE | 2022-10-25 15:04 | ED General ---
General Chief Complaint: General Problems/Pain Stated Complaint: AMS; EDEMA; SOB Nursing Triage Note: Patient has presented to er by wheelchair with cc of "don't feel well". Patient report ongoing problems with swelling - legs, waiste, to abd swollen. Family reports a 10 pound weight gain over the last week. Family reports that he has a urinary tract infection and he is not being treated. Family states that a month ago he did have a urinary culutre that did grow out infection but he is not antbiotics for the infection. Patient reports the he feels bloated. Family reports that he has become more confused the past 3 days. Family reports they have to straight cath the patient 2 to 3 times per day and he has had lessing urine output. Patient reports that it is very hard to stand and his mobility has worsened. Source of Information: Patient, Family, Old Records Exam Limitations: No Limitations History of Present Illness Date Seen by Provider: Oct 25, 2022 Time Seen by Provider: 13:28 Initial Comments This pleasant 72-year-old gentleman with multiple chronic comorbidities presents to the emergency room accompanied by his daughter with complaints including worsening chronic edema up to his chest, decreased urine output, possible urinary tract infection, and intermittent confusion. He has a history of si gnificant congestive heart failure and chronic kidney disease. He sees multiple specialists in [place] at [facility] including Dr. Mary Rios for nephrology. He has had significant functional decline in the last few days. He is normally able to rise from a lying or sitting and ambulate short distances to the bathroom independently. He is now not even able to stand to transfer with assistance. He attends the heart failure clinic in [place]. His primary care provider is Dr. Murillo in [place]. Patient is alert and able to participate in the history and physical. He denies any new acute pain but reports significant chronic pain worsened by edema. He has chronic back problems that are nonoperative due to his other comorbidities. Vital signs are within normal limits but his blood pressure is soft at 92/59. He is unable to urinate independently. Family assists with straight cathing 2-4 times per day. They report approximately 600 to 800 mL of urine output today. He is afebrile. A urine culture from September 25 at [facility] was obtained and reviewed. He grew Klebsiella pneumoniae that was highly resistant to several antibiotics but is sensitive to meropenem. He reports feeling constipated. Allergies and Home Medications Allergies Coded Allergies: Penicillins (Unverified Allergy, Unknown, rash, 06/05/21) Vwukahv-HVJ-GcZ Reductase Inhibitor (Unverified Allergy, Unknown, LEG CRAMPS, 06/05/21) fish oil (Unverified Allergy, Unknown, PVC'S, 06/05/21) Patient Home Medication List Home Medication List Reviewed: Yes Aspirin (Aspirin EC) 81 Mg Tablet.dr, 81 MG PO DAILY, (Reported) Entered as Reported by: ALMA RUBY on 06/06/21 135 Carvedilol (Carvedilol) 25 Mg Tablet, 25 MG PO BID, (Reported) Entered as Reported by: Tiffani Steele on 06/05/21 182 Docusate Sodium (Colace) 100 Mg Capsule, 100 MG PO DAILY PRN for CONSTIPATION- 1ST LINE, (Reported) Entered as Reported by: Tiffani Steele on 06/05/21 182 Esomeprazole Magnesium (Nexium) 40 Mg Cap, 40 MG PO DAILY, (Reported) Entered as Reported by: ALMA RUBY on 06/06/21 1352 Fenofibrate Nanocrystallized (Fenofibrate) 145 Mg Tablet, 145 MG PO HS, (Reported) Entered as Reported by: ALMA RUBY on 06/06/21 1344 Finasteride (Finasteride) 5 Mg Tablet, 5 MG PO DAILY, (Reported) Entered as Reported by: Tiffani Steele on 06/05/21 182 Furosemide (Furosemide) 40 Mg Tablet, 80 MG PO DAILY, (Reported) Entered as Reported by: Tiffani Steele on 06/05/21 182 Furosemide (Lasix) 40 Mg Tablet, 40 MG PO HS, (Reported) Entered as Reported by: ALMA RUBY on 06/06/21 1347 Hydrocodone Bit/Acetaminophen (HYDROcodone/APAP 7.5/325 TAB) 1 Ea Tablet, 1 EA PO Q6H PRN for PAIN-MODERATE (5-7), (Reported) Entered as Reported by: AMANDEEP GRACIA on 06/06/21 1105 Isosorbide Mononitrate (Isosorbide Mononitrate ER) 30 Mg Tab.er.24h, 60 MG PO DAILY, (Reported) Entered as Reported by: Tiffani Steele on 06/05/21 182 Isosorbide Mononitrate (Isosorbide Mononitrate ER) 30 Mg Tab.er.24h, 30 MG PO HS, (Reported) Entered as Reported by: ALMA RUBY on 06/06/21 1340 Metolazone (Metolazone) 2.5 Mg Tablet, 2.5 MG PO DAILY, (Reported) Entered as Reported by: ALMA RUBY on 06/06/21 134 Nitroglycerin (Nitroglycerin) 0.4 Mg Tab.subl, 0.4 MG SL NEEDED, (Reported) Entered as Reported by: Tiffani Steele on 06/05/21 182 Semaglutide (Ozempic) 0.25 Mg/0.2 Ml Pen.injctr, 0.5 MG SC SUNDAY, (Reported) Entered as Reported by: ALMA RUBY on 06/06/21 134 Tamsulosin HCl (Flomax) 0.4 Mg Cap, 0.4 MG PO HS, (Reported) Entered as Reported by: Tiffani Steele on 06/05/211825 Review of Systems Review of Systems Constitutional: weakness EENTM: no symptoms reported Respiratory: no symptoms reported Cardiovascular: see HPI Gastrointestinal: see HPI Genitourinary: see HPI Musculoskeletal: no symptoms reported Psychiatric/Neurological: See HPI Hematologic/Lymphatic: No Symptoms Reported Immunological/Allergic: no symptoms reported Past Pswxsmu-Izmaef-Obhgdl Hx Patient Social History Tobacco Use?: No Use of E-Cig and/or Vaping dev: No Substance use?: No Alcohol Use?: No Immunizations Up To Date First/Initial COVID19 Vaccinat: APRIL 2020 Second COVID19 Vaccination Harvey: MAY 2020 Third COVID19 Vaccination Date: APRIL 2020 Seasonal Allergies Seasonal Allergies: Yes Past Medical History Surgery/Hospitalization HX: COPD, Renal failure, CHF Surgeries: Yes (SPLENECTOMY, KIDNEY ABLATION, ) Adenoidectomy, Gallbladder, Tonsillectomy Respiratory: No Cardiac: Yes (PACEMAKER/DEFIB, STENTS) Hypertension Neurological: No Reproductive Disorders: No Genitourinary: Yes (KIDNEY CANCER) Gastrointestinal: Yes (SPLENECTOMY) Gall Bladder Disease Musculoskeletal: Yes Chronic Back Pain Endocrine: No HEENT: No Cancer: Yes Kidney Did You Recieve Any Treatments: Yes What Type of Treatment Did You: Surgical Intervention Psychosocial: Yes Anxiety Integumentary: No Blood Disorders: No Family Medical History Heart Disease, Cancer, Hypertension Physical Exam Vital Signs Vital Signs - First Documented 10/25/22 13:33 Temp 36.6 Pulse 77 Resp 16 B/P (MAP) 92/59 (70) Pulse Ox 96 O2 Delivery Room Air Capillary Refill : Height, Weight, BMI Height: '" Weight: lbs. oz. kg; 45.00 BMI Method: General Appearance: No Apparent Distress, WD/WN, Obese HEENT: PERRL/EOMI, Normal ENT Inspection Neck: Normal Inspection; No JVD Respiratory: Lungs Clear, Normal Breath Sounds, No Accessory Muscle Use Cardiovascular: Regular Rate, Rhythm, No Murmur, Other (Generalized edema, werner re in the lower extremities) Gastrointestinal: Non Tender, Other (mildly tense from edema) Extremity: Non Tender, Swelling (Diffuse LE edema) Neurologic/Psychiatric: Alert, Oriented x3, No Motor/Sensory Deficits, Normal Mood/Affect Skin: Normal Color, Warm/Dry, Rash (excoriated rash on right upper patient believes to be resolving shingles) Focused Exam Lactate Level 10/25/22 13:45: Lactic Acid Level 0.81 Lactic Acid Level Laboratory Tests Test 10/25/22 13:45 Lactic Acid Level 0.81 MMOL/L (0.50-2.00) Progress/Results/Core Measures Suspected Sepsis SIRS Temperature: Pulse: 77 Respiratory Rate: 16 Laboratory Tests 10/25/22 13:45: White Blood Count 6.4 Blood Pressure 92 /59 Mean: 70 10/25/22 13:45: Lactic Acid Level 0.81 Laboratory Tests 10/25/22 13:45: Creatinine 4.40H, Platelet Count 153, Total Bilirubin 1.5H Results/Orders Lab Results Laboratory Tests Test 10/25/22 13:45 10/25/22 13:57 Range/Units White Blood Count 6.4 4.3-11.0 10^3/uL Red Blood Count 3.40 L 4.30-5.52 10^6/uL Hemoglobin 10.7 L 13.3-17.7 g/dL Hematocrit 32 L 40-54 % Mean Corpuscular Volume 93 80-99 fL Mean Corpuscular Hemoglobin 31 25-34 pg Mean Corpuscular Hemoglobin Concent 34 32-36 g/dL Red Cell Distribution Width 16.1 H 10.0-14.5 % Platelet Count 153 130-400 10^3/uL Mean Platelet Volume 13.1 H 9.0-12.2 fL Immature Granulocyte % (Auto) 0 % Neutrophils (%) (Auto) 62 42-75 % Lymphocytes (%) (Auto) 22 12-44 % Monocytes (%) (Auto) 12 0-12 % Eosinophils (%) (Auto) 2 0-10 % Basophils (%) (Auto) 1 0-10 % Neutrophils # (Auto) 4.0 1.8-7.8 X 10^3 Lymphocytes # (Auto) 1.4 1.0-4.0 X 10^3 Monocytes # (Auto) 0.8 0.0-1.0 X 10^3 Eosinophils # (Auto) 0.1 0.0-0.3 10^3/uL Basophils # (Auto) 0.1 0.0-0.1 10^3/uL Immature Granulocyte # (Auto) 0.0 0.0-0.1 10^3/uL Sodium Level 130 L 135-145 MMOL/L Potassium Level 4.5 3.6-5.0 MMOL/L Chloride Level 94 L 98-107 MMOL/L Carbon Dioxide Level 20 L 21-32 MMOL/L Anion Gap 16 H 5-14 MMOL/L Blood Urea Nitrogen 112 *H 7-18 MG/DL Creatinine 4.40 H 0.60-1.30 MG/DL Estimat Glomerular Filtration Rate 14 BUN/Creatinine Ratio 25 Glucose Level 104 70-105 MG/DL Lactic Acid Level 0.81 0.50-2.00 MMOL/L Calcium Level 9.4 8.5-10.1 MG/DL Corrected Calcium 9.8 8.5-10.1 MG/DL Total Bilirubin 1.5 H 0.1-1.0 MG/DL Aspartate Amino Transf (AST/SGOT) 16 5-34 U/L Alanine Aminotransferase (ALT/SGPT) 5 0-55 U/L Alkaline Phosphatase 102 40-136 U/L Pro-B-Type Natriuretic Peptide 66526.0 H <125.0 PG/ML Total Protein 8.0 6.4-8.2 GM/DL Albumin 3.5 3.2-4.5 GM/DL Urine Color YELLOW Urine Clarity CLEAR Urine pH 6.0 5-9 Urine Specific [place] 1.010 L 1.016-1.022 Urine Protein TRACE H NEGATIVE Urine Glucose (UA) NEGATIVE NEGATIVE Urine Ketones NEGATIVE NEGATIVE Urine Nitrite NEGATIVE NEGATIVE Urine Bilirubin NEGATIVE NEGATIVE Urine Urobilinogen 0.2 < = 1.0 MG/DL Urine Leukocyte Esterase 3+ H NEGATIVE Urine RBC (Auto) 1+ H NEGATIVE Urine RBC 5-10 H /HPF Urine WBC >100 H /HPF Urine Squamous Epithelial Cells 0-2 /HPF Urine Crystals NONE /LPF Urine Bacteria LARGE H /HPF Urine Casts NONE /LPF Urine Mucus NEGATIVE /LPF Urine Culture Indicated YES My Orders Orders - ECTOR RIGGS MD Cbc With Automated Diff (10/25/22 13:44) Comprehensive Metabolic Panel (10/25/22 13:44) Ua Culture If Indicated (10/25/22 13:44) Probnp Fs (10/25/22 13:44) Chest 1 View Ap/Pa Only (10/25/22 13:44) Ed Iv/Invasive Line Start (10/25/22 13:44) Zimmerman Cath (10/25/22 13:44) Urine Culture (10/25/22 13:57) Blood Culture (10/25/22 15:01) Vital Signs Adult Sepsis Patie Q15M (10/25/22 15:01) Remove Rings In Anticipation O (10/25/22 15:01) Lactic Acid Analyzer (10/25/22 15:01) Meropenem Injection (Meropenem Injecti (10/25/22 15:15) Ns Iv 500 Ml (Sodium Chloride 0.9%) (10/25/22 15:15) Ns Iv 500 Ml (Sodium Chloride 0.9%) (10/25/22 20:15) Ondansetron Injection (Zofran Injectio (10/25/22 21:00) Hydrocodone/Apap 5/325 Tablet (Hydrocod (10/25/22 21:00) Medications Given in ED Current Medications Medications Dose Ordered Sig/Mart Route Start Time Stop Time Status Last Admin Dose Admin Acetaminophen/ Hydrocodone Bitart 1.5 ea ONCE ONCE PO 10/25/22 21:00 10/25/22 21:01 DC 10/25/22 20:57 1.5 EA Ondansetron HCl 4 mg ONCE ONCE IVP 10/25/22 21:00 10/25/22 21:01 DC 10/25/22 20:56 4 MG Sodium Chloride 500 ml @ 100 mls/hr Q5H ONCE IV 10/25/22 20:15 10/25/22 22:25 DC 10/25/22 20:29 100 MLS/HR Vital Signs/I&O 10/25/22 10/25/22 13:33 22:15 Temp 36.6 Pulse 77 83 Resp 16 22 B/P (MAP) 92/59 (70) 101/76 Pulse Ox 96 97 O2 Delivery Room Air Room Air 10/26/22 00:00 Intake Total 600 ml Balance 600 ml Capillary Refill : Blood Pressure Mean: 70 Progress Note #1: Time: 17:59 Progress Note Patient was interviewed and examined upon arrival. Daughter was also interviewed. Labs were pursued including CBC, CMP, urinalysis, BMP, and lactic acid. CBC was remarkable for mild anemia with hemoglobin of 10.7. CMP was notable for mild hyponatremia with sodium of 130 and marked renal failure with exacerbation from baseline. Creatinine was 4.4 and BUN was 112. CMP was otherw ise unremarkable. Lactic acid was normal. BNP was 13,000. Urinalysis was grossly positive for pyuria with greater than 100 WBC and large bacteria. All labs were reviewed and interpreted by me. Chest x-ray report was reviewed and noted congestion without overt failure. No other acute abnormalities were appreciated. See radiologist's report below. Urine culture from the [facility] clinic was reviewed. Meropenem was selected for initial antibiotic therapy for treatment of his urinary tract infection. Patient should be admitted for treatment of urinary tract infection and balancing of his renal failure and heart failure. He is receiving a slow 500 mL normal saline bolus as he is felt to be intravascularly depleted while concurrently experiencing peripheral edema. Case was discussed with Dr. Jc, hospitalist at [facility]. Because of patient's soft blood pressure of 93/59 on presentation, she is deferring to the head of insight. Dr. Pruitt, head of insight, accepts the transfer to [facility] for admission. Patient is stable. We are awaiting bed assignment. Progress Note #2: Time: 22:15 Progress Note Patient had a prolonged ER stay due to a long wait time for bed assignment from [facility]. During that time he did require his usual pain medication. Hydrocodone 7.5 mg was administered. He also requested medication for nausea. Blood pressure remained in the low normotensive range and stable. After a few hours without IV fluids, additional IV fluids were ordered as normal saline at 100 mL/h. Patient was ultimately transferred to [facility] via [facility]. Diagnostic Imaging Diagonstic Imaging: Xray Plain Films/CT/US/NM/MRI: chest Comments NAME: VALENTINO PRESTON [facility] REC#: [id number] PT STATUS: REG ER : 1950 PHYSICIAN: ECTOR RIGGS MD ADMIT DATE: 10/25/22/ER FS Draft Date of Exam:10/25/22 CHEST 1 VIEW AP/PA ONLY Indication: Urinary tract infection, abdominal bloating as well as the lower extremity swelling. Time of Exam: 2:07 PM Correlation is made with prior chest 12/28/2021. Heart is enlarged but stable. Cardiac defibrillator remains in place. Lungs are clear. There is no infiltrate or failure. No effusion or pneumothorax is detected. Central vascularity is slightly prominent. Impression: Cardiomegaly with continued mild central congestion. No overt failure is detected. Dictated on workstation # [id number] Dict: 10/25/22 1420 Trans: 10/25/22 1422 CVB [id number] Interpreted by: MELYSSA MCRAE MD Departure Impression Primary Impression: Acute on chronic renal failure Qualified Codes: N17.9 - Acute kidney failure, unspecified; N18.9 - Chronic kidney disease, unspecified Additional Impressions: Urinary tract infection Qualified Codes: N39.0 - Urinary tract infection, site not specified CHF exacerbation Qualified Codes: I50.9 - Heart failure, unspecified Altered mental status Qualified Codes: R41.82 - Altered mental status, unspecified Disposition: 02 XFER SHT-TRM HOSP Condition: Stable Transfer Transfer Reason: Exceeds level of care Time Spoke to Accepting Phy: 15:10 Transfer Progress Notes Transfer accepted by Dr. Pruitt at [facility]. Transfer Time: 22:15 Transfer Facility: [facility] Method of Transfer: EMS Departure-Patient Inst. Referrals: STEWART MURILLO MD (PCP/Family) Primary Care Physician Copy Copies To 1: STEWART MURILLO MD, JOSHUA T MD Oct 25, 2022 15:04
[2022-10-25] MEDS ORDERED: NS IV 500 ML 500 ML IV ONE ×2 (15:15→20:15)
[2022-10-25] MEDS ORDERED: MEROPENEM INJECTION 500 MG in NS (IVPB) 100 ML 100 ML IV ONE (15:15)
[2022-10-25] MEDS ORDERED: HYDROcodone/ACETAMINOPHEN 5 MG/325 MG TABLET PO ONE (21:00)
[2022-10-25] MEDS ORDERED: ONDANSETRON 4 MG/2 ML (SDV) Z0FRAN IVP ONE (21:00)
[2022-10-25 22:15] VITALS: BP 101/76
== END 2022-10-25 22:15 | disposition short-term general hospital (02) ==
LOC: EDUNIT# 13:23 → ER FS 13:25
DX: I13.0 Hypertensive heart and chronic kidney disease with heart failure and stage 1 through stage 4 chronic kidney disease, or unspecified chronic kidney disease (principal); I50.9 Heart failure, unspecified; N18.9 Chronic kidney disease, unspecified; N17.9 Acute kidney failure, unspecified; N39.0 Urinary tract infection, site not specified; R41.82 Altered mental status, unspecified; D64.9 Anemia, unspecified; E87.1 Hypo-osmolality and hyponatremia; Z85.528 Personal history of other malignant neoplasm of kidney
CPT/HCPCS: 36415; 51702; 71045; 80053; 81000; 83605; 83880; 85025; 87040; 87088

== ENCOUNTER 2023-02-04 17:25 | Emergency (ER) | payer MEDICARE, BC ==
--- NOTE | 2023-02-04 18:11 | Diagnostic Imaging Report ---
INDICATION: Fever and altered mental status and cough. EXAMINATION: Frontal chest was obtained at 5:51 p.m. FINDINGS: There is cardiomegaly. There is no change in device. There is a dual-lumen dialysis catheter in place from a right IJ approach with tip overlying the low SVC. There is no pneumothorax or pleural fluid or focal infiltrate. IMPRESSION: Cardiomegaly with no acute process in the chest. Dictated by: Dictated on workstation # [id number]
[2023-02-04 18:16] LABS: BASOPHILS # (AUTO) 0.1 10^3/uL (0.0-0.1); BASOPHILS % (AUTO) 1 % (0-10); EOSINOPHILS # (AUTO) 0.1 10^3/uL (0.0-0.3); EOSINOPHILS % (AUTO) 1 % (0-10); HEMATOCRIT 31 % (40-54); HEMOGLOBIN 10.1 g/dL (13.3-17.7); LYMPHOCYTES # (AUTO) 2.5 10^3/uL (1.0-4.0); LYMPHOCYTES % (AUTO) 24 % (12-44); MEAN CORPUSCULAR HEMOGLOBIN 32 pg (25-34); MEAN CORPUSCULAR HGB CONC 32 g/dL (32-36); MEAN CORPUSCULAR VOLUME 99 fL (80-99); MEAN PLATELET VOLUME 10.7 fL (9.0-12.2); MONOCYTES # (AUTO) 2.5 10^3/uL (0.0-1.0); MONOCYTES % (AUTO) 24 % (0-12); NEUTROPHILS # (AUTO) 5.2 10^3/uL (1.8-7.8); NEUTROPHILS % (AUTO) 50 % (42-75); PLATELET COUNT 293 10^3/uL (130-400); WHITE BLOOD COUNT 10.3 10^3/uL (4.3-11.0)
[2023-02-04 18:23] LABS: BILIRUBIN,URINE NEGATIVE (NEGATIVE); COLOR,URINE YELLOW; GLUCOSE, URINE (UA) NEGATIVE (NEGATIVE); KETONES,URINE TRACE (NEGATIVE); LEUKOCYTE ESTERASE ,URINE 3+ (NEGATIVE); NITRITE,URINE NEGATIVE (NEGATIVE); PH,URINE 6.5 (5-9); PROTEIN,URINE 1+ (NEGATIVE)
[2023-02-04 18:25] LABS: CLARITY,URINE TURBID
[2023-02-04 18:26] LABS: WBC,URINE TNTC /HPF
[2023-02-04 18:31] LABS: BILIRUBIN,TOTAL 0.6 MG/DL (0.1-1.0); CALCIUM 9.1 MG/DL (8.5-10.1); INR 1.2 (0.8-1.4); MAGNESIUM 2.5 MG/DL (1.6-2.4); POTASSIUM 4.1 MMOL/L (3.6-5.0); PROTHROMBIN TIME PATIENT 15.9 SEC (12.2-14.7)
[2023-02-04 18:36] LABS: CREATININE SERUM 6.56 MG/DL (0.60-1.30); TOTAL PROTEIN 9.1 GM/DL (6.4-8.2)
[2023-02-04 18:37] LABS: ALBUMIN 3.1 GM/DL (3.2-4.5)
--- NOTE | 2023-02-04 18:39 | ED General ---
General Chief Complaint: Fever-Adult/Adol Stated Complaint: FEVER; AMS Nursing Triage Note: Pt brought to ER by his daughter, for evaluation of fever, 100.8 at home. Family reports hx of UTI that progresses into sepsis. Pt does hemodialysis at home every other day, last done on Sunday. Pt did take hydrocodone at approximately 1600 for fever and chronic pain. Hemodialysis cath to right upper chest. Fentanyl patch to left posterior shoulder region Source of Information: Patient, Family Exam Limitations: No Limitations History of Present Illness Date Seen by Provider: Feb 04, 2023 Time Seen by Provider: 17:27 Initial Comments 73-year-old male with past medical history of ESRD on HD coming in with daughter who is his caregiver due to fever. No systemic she was elevated earlier today, 100.8 F. He has a history of multiple UTIs, his urine was a bit cloudy, not as bad as usual. He has hemodialysis every other day at home, last dialysis was on Sunday and it was a fall dialysis. He had hydrocodone at roughly 4 PM today. Has had some congestion as well which family members also have. Denies any vomiting, shortness of breath, abdominal pain, diarrhea, rash, or any other concerns. Allergies and Home Medications Allergies Coded Allergies: Penicillins (Unverified Allergy, Unknown, rash, 06/05/21) Hpomajx-UIF-ClN Reductase Inhibitor (Unverified Allergy, Unknown, LEG CRAMPS, 06/05/21) fish oil (Unverified Allergy, Unknown, PVC'S, 06/05/21) Patient Home Medication List Home Medication List Reviewed: Yes Aspirin (Aspirin EC) 81 Mg Tablet.dr, 81 MG PO DAILY, (Reported) Entered as Reported by: ALMA RUBY on 06/06/21 1353 Carvedilol (Carvedilol) 25 Mg Tablet, 25 MG PO BID, (Reported) Entered as Reported by: Tiffani Steele on 06/05/21 182 Docusate Sodium (Colace) 100 Mg Capsule, 100 MG PO DAILY PRN for CONSTIPATION- 1ST LINE, (Reported) Entered as Reported by: Tiffani Steele on 06/05/21 182 Esomeprazole Magnesium (Nexium) 40 Mg Cap, 40 MG PO DAILY, (Reported) Entered as Reported by: ALMA RUBY on 06/06/21 1352 Fenofibrate Nanocrystallized (Fenofibrate) 145 Mg Tablet, 145 MG PO HS, (Reported) Entered as Reported by: ALMA RUBY on 06/06/21 1344 Finasteride (Finasteride) 5 Mg Tablet, 5 MG PO DAILY, (Reported) Entered as Reported by: Tiffani Steele on 06/05/211825 Furosemide (Furosemide) 40 Mg Tablet, 80 MG PO DAILY, (Reported) Entered as Reported by: Tiffani Steele on 06/05/21 182 Furosemide (Lasix) 40 Mg Tablet, 40 MG PO HS, (Reported) Entered as Reported by: ALMA RUBY on 06/06/21 134 Hydrocodone Bit/Acetaminophen (HYDROcodone/APAP 7.5/325 TAB) 1 Ea Tablet, 1 EA PO Q6H PRN for PAIN-MODERATE (5-7), (Reported) Entered as Reported by: AMANDEEP GARCIA on 06/06/21 1105 Isosorbide Mononitrate (Isosorbide Mononitrate ER) 30 Mg Tab.er.24h, 60 MG PO DAILY, (Reported) Entered as Reported by: Tiffani Steele on 06/05/211825 Isosorbide Mononitrate (Isosorbide Mononitrate ER) 30 Mg Tab.er.24h, 30 MG PO HS, (Reported) Entered as Reported by: ALMA RUBY on 06/06/21 134 Metolazone (Metolazone) 2.5 Mg Tablet, 2.5 MG PO DAILY, (Reported) Entered as Reported by: ALMA RUBY on 06/06/21 134 Nitroglycerin (Nitroglycerin) 0.4 Mg Tab.subl, 0.4 MG SL NEEDED, (Reported) Entered as Reported by: Tiffani Steele on 06/05/21 182 Semaglutide (Ozempic) 0.25 Mg/0.2 Ml Pen.injctr, 0.5 MG SC SUNDAY, (Reported) Entered as Reported by: ALMA RUBY on 06/06/21 134 Tamsulosin HCl (Flomax) 0.4 Mg Cap, 0.4 MG PO HS, (Reported) Entered as Reported by: Tiffani Steele on 06/05/21 182 Review of Systems Review of Systems Constitutional: fever EENTM: nose congestion Respiratory: cough Cardiovascular: No chest pain Gastrointestinal: no symptoms reported Genitourinary: no symptoms reported Musculoskeletal: no symptoms reported Skin: no symptoms reported Past Jvbbtod-Deawlo-Xkpzrc Hx Patient Social History Tobacco Use?: No Use of E-Cig and/or Vaping dev: No Substance use?: No Alcohol Use?: No Pt feels they are or have been: No Immunizations Up To Date Influenza Vaccine Up-to-Date: Yes; Up-to-Date First/Initial COVID19 Vaccinat: APRIL 2020 Second COVID19 Vaccination Harvey: MAY 2020 Third COVID19 Vaccination Date: APRIL 2020 Seasonal Allergies Seasonal Allergies: Yes Past Medical History Surgery/Hospitalization HX: COPD, Renal failure, CHF, liver cirrhosis, pacemaker/defib Surgeries: Yes (SPLENECTOMY, KIDNEY ABLATION, ) Adenoidectomy, Gallbladder, Tonsillectomy Respiratory: No Cardiac: Yes (PACEMAKER/DEFIB, STENTS) Hypertension Neurological: No Reproductive Disorders: No Genitourinary: Yes (KIDNEY CANCER) Gastrointestinal: Yes (SPLENECTOMY) Gall Bladder Disease Musculoskeletal: Yes Chronic Back Pain Endocrine: No HEENT: No Cancer: Yes Kidney Did You Recieve Any Treatments: Yes What Type of Treatment Did You: Surgical Intervention Psychosocial: Yes Anxiety Integumentary: No Blood Disorders: No Family Medical History Heart Disease, Cancer, Hypertension Physical Exam Vital Signs Vital Signs - First Documented 02/04/23 17:40 Temp 37.0 Pulse 76 Resp 20 B/P (MAP) 92/44 (60) Pulse Ox 96 O2 Delivery Room Air Capillary Refill : Less Than 3 Seconds Height, Weight, BMI Height: '" Weight: lbs. oz. kg; 45.00 BMI Method: General Appearance: No Apparent Distress, WD/WN Eyes: Bilateral Eye Normal Inspection HEENT: PERRL/EOMI, Normal ENT Inspection, Pharynx Normal Neck: Full Range of Motion, Normal Inspection, Non Tender, Supple Respiratory: Chest Non Tender, Lungs Clear, Normal Breath Sounds, No Accessory Muscle Use, No Respiratory Distress Cardiovascular: Regular Rate, Rhythm, Normal Peripheral Pulses Gastrointestinal: Normal Bowel Sounds, Non Tender, Soft Back: Normal Inspection, No CVA Tenderness Extremity: Normal Capillary Refill, Normal Inspection, Normal Range of Motion, Non Tender, No Calf Tenderness Neurologic/Psychiatric: Alert, No Motor/Sensory Deficits, Normal Mood/Affect Skin: Normal Color, Warm/Dry Focused Exam Lactate Level 02/04/23 18:00: Lactic Acid Level 2.02*H Lactic Acid Level Laboratory Tests Test 02/04/23 18:00 Lactic Acid Level 2.02 MMOL/L (0.50-2.00) *H Progress/Results/Core Measures Suspected Sepsis SIRS Temperature: Pulse: 76 Respiratory Rate: 20 Laboratory Tests 02/04/23 18:00: White Blood Count 10.3 Blood Pressure 92 /44 Mean: 63 02/04/23 18:00: Lactic Acid Level 2.02*H Laboratory Tests 02/04/23 18:00: Creatinine 6.56H, INR Comment 1.2, Platelet Count 293, Total Bilirubin 0.6 Results/Orders Lab Results Laboratory Tests Test 02/04/23 17:55 02/04/23 18:00 02/04/23 18:20 Range/Units Influenza Type A (RT-PCR) Not Detected Not Detecte Influenza Type B (RT-PCR) Not Detected Not Detecte SARS-CoV-2 RNA (RT-PCR) Not Detected Not Detecte White Blood Count 10.3 4.3-11.0 10^3/uL Red Blood Count 3.18 L 4.30-5.52 10^6/uL Hemoglobin 10.1 L 13.3-17.7 g/dL Hematocrit 31 L 40-54 % Mean Corpuscular Volume 99 80-99 fL Mean Corpuscular Hemoglobin 32 25-34 pg Mean Corpuscular Hemoglobin Concent 32 32-36 g/dL Red Cell Distribution Width 14.6 H 10.0-14.5 % Platelet Count 293 130-400 10^3/uL Mean Platelet Volume 10.7 9.0-12.2 fL Immature Granulocyte % (Auto) 0 % Neutrophils (%) (Auto) 50 42-75 % Lymphocytes (%) (Auto) 24 12-44 % Monocytes (%) (Auto) 24 H 0-12 % Eosinophils (%) (Auto) 1 0-10 % Basophils (%) (Auto) 1 0-10 % Neutrophils # (Auto) 5.2 1.8-7.8 10^3/uL Lymphocytes # (Auto) 2.5 1.0-4.0 10^3/uL Monocytes # (Auto) 2.5 H 0.0-1.0 10^3/uL Eosinophils # (Auto) 0.1 0.0-0.3 10^3/uL Basophils # (Auto) 0.1 0.0-0.1 10^3/uL Immature Granulocyte # (Auto) 0.0 0.0-0.1 10^3/uL Neutrophils % (Manual) 55 % Lymphocytes % (Manual) 26 % Monocytes % (Manual) 18 % Eosinophils % (Manual) 1 % Prothrombin Time 15.9 H 12.2-14.7 SEC INR Comment 1.2 0.8-1.4 Activated Partial Thromboplast Time 39 H 24-35 SEC Sodium Level 126 L 135-145 MMOL/L Potassium Level 4.1 3.6-5.0 MMOL/L Chloride Level 91 L 98-107 MMOL/L Carbon Dioxide Level 19 L 21-32 MMOL/L Anion Gap 16 H 5-14 MMOL/L Blood Urea Nitrogen 80 H 7-18 MG/DL Creatinine 6.56 H 0.60-1.30 MG/DL Estimat Glomerular Filtration Rate 8 BUN/Creatinine Ratio 12 Glucose Level 89 70-105 MG/DL Lactic Acid Level 2.02 *H 0.50-2.00 MMOL/L Calcium Level 9.1 8.5-10.1 MG/DL Corrected Calcium 9.8 8.5-10.1 MG/DL Magnesium Level 2.5 H 1.6-2.4 MG/DL Total Bilirubin 0.6 0.1-1.0 MG/DL Aspartate Amino Transf (AST/SGOT) 21 5-34 U/L Alanine Aminotransferase (ALT/SGPT) 14 0-55 U/L Alkaline Phosphatase 179 H 40-136 U/L C-Reactive Protein 12.46 H <0.50 MG/DL Pro-B-Type Natriuretic Peptide 09334.0 H <125.0 PG/ML Total Protein 9.1 H 6.4-8.2 GM/DL Albumin 3.1 L 3.2-4.5 GM/DL Urine Color YELLOW Urine Clarity TURBID Urine pH 6.5 5-9 Urine Specific [place] 1.015 L 1.016-1.022 Urine Protein 1+ H NEGATIVE Urine Glucose (UA) NEGATIVE NEGATIVE Urine Ketones TRACE H NEGATIVE Urine Nitrite NEGATIVE NEGATIVE Urine Bilirubin NEGATIVE NEGATIVE Urine Urobilinogen 0.2 < = 1.0 MG/DL Urine Leukocyte Esterase 3+ H NEGATIVE Urine RBC (Auto) 1+ H NEGATIVE Urine RBC /HPF Urine WBC TNTC H /HPF Urine Crystals NONE /LPF Urine Bacteria /HPF Urine Casts NONE /LPF Urine Mucus NEGATIVE /LPF Urine Culture Indicated NO My Orders Orders - MINNA PARKS MD Cbc And Automated Diff (02/04/23 17:48) Comprehensive Metabolic Panel (02/04/23 17:48) Blood Culture (02/04/23 17:48) Urinalysis (02/04/23 17:48) Urine Culture (02/04/23 17:48) Protime With Inr (02/04/23 17:48) Partial Thromboplastin Time (02/04/23 17:48) Chest 1 View Ap/Pa Only (02/04/23 17:48) Ed Iv/Invasive Line Start (02/04/23 17:48) Ed Iv/Invasive Line Start (02/04/23 17:48) Ekg Tracing (02/04/23 17:48) Vital Signs Adult Sepsis Patie Q15M (02/04/23 17:48) O2 (02/04/23 17:48) Remove Rings In Anticipation O (02/04/23 17:48) Lactic Acid Analyzer (02/04/23 17:48) Influenza A And B By Pcr (02/04/23 17:48) Covid 19 Inhouse Test (02/04/23 17:48) Magnesium (02/04/23 17:48) Probnp Fs (02/04/23 17:48) Crp Fs (02/04/23 17:48) Straight Cath For Spec.-Adult (02/04/23 17:48) Manual Differential (02/04/23 18:00) Meropenem Injection (Meropenem Injection (02/04/23 18:45) Ns Iv 500 Ml (Ns Iv 500 Ml) (02/04/23 18:44) Meropenem Injection (Meropenem Injecti (02/04/23 18:49) Ns (Ivpb) 100 Ml (Sodium Chloride 0.9% 1 (02/04/23 18:50) Medications Given in ED Current Medications Medications Dose Ordered Sig/Mart Route Start Time Stop Time Status Last Admin Dose Admin Meropenem 1000 mg/ Sodium Chloride 100 ml @ 200 mls/hr ONCE ONCE IV 02/04/23 18:45 02/04/23 19:14 DC 11/26/23 19:05 200 MLS/HR Vital Signs/I&O 02/04/23 02/04/23 02/04/23 02/04/23 17:40 18:30 18:43 19:09 Temp 37.0 Pulse 76 74 81 81 Resp 20 18 18 18 B/P (MAP) 92/44 (60) 96/46 (63) 86/50 (62) 88/39 (55) Pulse Ox 96 97 97 97 O2 Delivery Room Air Room Air Room Air Room Air Capillary Refill : Less Than 3 Seconds Blood Pressure Mean: 63 Progress Note : Progress Note 73-year-old male with above history coming in due to fever and altered mental status. ABCs were intact and vitals were stable on presentation. His blood pressure did continue to trend down on arrival here to the 80s over 40s. Per the patient's caregiver and daughter, he is typically in the 90s over 40s and will get down to the 70s when on dialysis. Because of this, just give him a gentle bolus of IV fluids at 500 cc. I think giving him more fluids at this time could be detrimental especially since he is due for dialysis today. He is afebrile here, but did have a small amount of Tylenol prior to arrival. An IV was placed and basic labs were obtained and were significant for normal white blood cell count, elevated creatinine which is expected, proBNP around 35,000 which is much higher than in the past, elevated CRP around 12, urinalysis with pyuria concerning for infection, negative flu and COVID testing. I reviewed the patient's history, and he is previously grown out Klebsiella that was resistant to most antibiotics, but that was susceptible to meropenem which the patient has tolerated in the past. He was given 1 g of meropenem. I discussed with the family given his infection which qualifies him as a diagnosis of severe sepsis with his altered mental status, he would need admission to the hospital. Unfortunately our facility does not have dialysis capabilities. Family was requesting he go to [facility]. I discussed the case with the ICU physician, Dr. Mcnalyl, who accepted him for transfer. ECG Initial ECG Impression Date: Feb 04, 2023 Initial ECG Impression Time: 18:24 Initial ECG Rate: 78 Comment Ventricularly paced rhythm with no STEMI Diagnostic Imaging Diagonstic Imaging: Xray (chest) Comments [facility] [place], [place] NAME: VALENTINO PRESTON [facility] REC#: [id number] PT STATUS: REG ER : 1950 PHYSICIAN: MINNA PARKS MD ADMIT DATE: 02/04/23/ER FS Draft Date of Exam:02/04/23 CHEST 1 VIEW AP/PA ONLY INDICATION: Fever and altered mental status and cough. EXAMINATION: Frontal chest was obtained at 5:51 p.m. FINDINGS: There is cardiomegaly. There is no change in device. There is a dual-lumen dialysis catheter in place from a right IJ approach with tip overlying the low SVC. There is no pneumothorax or pleural fluid or focal infiltrate. IMPRESSION: Cardiomegaly with no acute process in the chest. Dictated on workstation # [id number] Dict: 02/04/23 180 Trans: 02/04/231811 [facility] [id number] Interpreted by: LUIS EDUARDO CHURCH MD Electronically signed by: Departure Impression Primary Impression: Pyuria due to bacterial urinary tract infection Additional Impressions: ESRD (end stage renal disease) Severe sepsis Disposition: XFER SHT-TRM HOSP Condition: Critical Transfer Transfer Reason: Exceeds level of care (needs nephrology) Time Spoke to Accepting Phy: 19:21 Transfer Progress Notes Called [facility]ak at 1905, got a callback at 192, accepted by Dr. Mcnally. Transfer Facility: [facility] Method of Transfer: EMS Departure-Patient Inst. Referrals: STEWART DIANE MD (PCP/Family) Primary Care Physician MINNA PARKS MD Feb 04, 2023 18:39
[2023-02-04 18:40] LABS: NEUTROPHILS % (MANUAL) 55 %
[2023-02-04 18:41] LABS: EOSINOPHILS % (MANUAL) 1 %; LYMPHOCYTES % (MANUAL) 26 %; MONOCYTES % (MANUAL) 18 %
[2023-02-04] MEDS ORDERED: NS IV 500 ML 500 ML IV STA (18:44)
[2023-02-04] MEDS ORDERED: MEROPENEM INJECTION 1,000 MG in NS (IVPB) 100 ML 100 ML IV ONE (18:45)
[2023-02-04] MEDS ORDERED: MEROPENEM INJ 500 MG VIAL IV ONE (18:49)
[2023-02-04] MEDS ORDERED: NS (IVPB) 100 ML 100 ML ONE (18:50)
[2023-02-04 20:20] VITALS: BP 92/40
== END 2023-02-04 20:25 | disposition short-term general hospital (02) ==
LOC: EDUNIT# 17:25 → ER FS 17:26
DX: A41.9 Sepsis, unspecified organism (principal); R65.20 Severe sepsis without septic shock; N39.0 Urinary tract infection, site not specified; I13.2 Hypertensive heart and chronic kidney disease with heart failure and with stage 5 chronic kidney disease, or end stage renal disease; N18.6 End stage renal disease; I50.9 Heart failure, unspecified; Z85.528 Personal history of other malignant neoplasm of kidney; Z99.2 Dependence on renal dialysis
CPT/HCPCS: 36415; 51701; 71045; 80053; 81000; 83605; 83735; 83880; 85007; 85027; 85610; 85730; 86141; 87040; 87077; 87088; 87186; 87636; 93005